=== PATIENT | female | born 1965 | race Caucasian/White ===

== ENCOUNTER 2024-03-19 14:54 | Inpatient (IN) ==
--- NOTE | 2024-03-19 15:11 | Emergency Department Note ---
Impression & Plan Trauma, Fall, Alcohol intoxication, Hypokalemia, C1 cervical fracture, Closed skull fracture, Compression fx, thoracic spine ED Provider Note NAME: FADY MADRIGAL AGE: 58 SEX: F : 1965 ARRIVES VIA: Ambulance INFORMANT: Patient, EMS ED PROVIDER(S): Lalo Gonzalez DO CHIEF COMPLAINT: Trauma HPI: The patient is a 58-year-old female who presented to the emergency department by ambulance after traumatic injury. The patient has a history of recent cervical spine trauma and head injury according to the prehospital personnel. The patient is obtunded and cannot give any history. The patient was boarded and collared prior to arrival. She was found at the bottom of her stairs with multiple injuries in different stages. She was wearing a cervical collar prior to arrival. It is unknown what her true past medical history and true traumatic injuries are at this time. ROS: See above HPI for pertinent positives & negatives. A total of 10 systems reviewed and were otherwise negative. PAST MEDICAL HISTORY: See Below PAST SURGICAL HISTORY: See Below FAMILY HISTORY: See Below SOCIAL HISTORY: See Below HOME MEDICATIONS: See Below ALLERGIES: See Below VITALS: See Below PHYSICAL EXAMINATION: GENERAL: The patient is awake to loud verbal commands but she is obtunded and does not answer questions well. She is slurring her words. EYES: The conjunctivae are injected. The pupils are dilated but reactive bilaterally. EARS, NOSE, MOUTH AND THROAT: The nose is without any evidence of any deformity. Mucous membranes are moist. Tongue is midline. NECK: Rigid cervical collar was in place prior to arrival. RESPIRATORY: Normal respiratory effort is noted there is no evidence of wheezing rhonchi or rales CARDIOVASCULAR: Regular rate and rhythm noted there no murmurs rubs or gallops normal S1 normal S2. GASTROINTESTINAL: The abdomen is soft. Abdomen is nontender. MUSCULOSKELETAL/EXTREMITIES: There is no evidence of gross deformity full range of motion is noted in the hips and shoulders. SKIN: There is no pedal edema. There were multiple bruises in different stages over the patient's entire body. There is some new bruising noted over the left flank. There is also bruising over the left upper back. NEUROLOGIC: Patient is awake to commands. I am unable to assess orientation at this time. Strength was symmetric. Speech was slurred. MEDICAL DECISION MAKING: The patient is a 58-year-old female who presented to the emergency department as a trauma alert. The patient was obtunded and found at the bottom of her stairs. She clearly fell. She was transferred to [facility] for trauma at the beginning of February for similar episode. At that time she was found to have bilateral subdural hematomas as well as cervical spine thoracic spine and skull fractures. The patient was obtunded on my initial evaluation. For this reason a medina scan was ordered. I discussed the patient's laboratory and radiographic studies with her and her family member. Given her findings I do not feel that she would be a good candidate for outpatient treatment. For this reason I will discuss her condition with the on-call [facility] hospitalist. Triage Nursing notes reviewed. Prior medical records reviewed Vital Signs: reviewed and remarkable for no significant abnormalities Differential diagnosis: Fracture, dislocation, contusion, intra-abdominal, pneumothorax, intrathoracic, intracranial, neurologic, compartment syndrome, rhabdomyolysis, as well as other pathologies. ER treatment provided: See below Diagnostics interpreted by me: ECG: EKG was obtained in the emergency department. My interpretation is normal sinus rhythm at 79 bpm. There is no ectopy. There is no acute ST segment abnormalities noted. This was compared to a tracing from February 18, 2024. No changes were noted. Cardiac Monitoring: An order was placed for continuous cardiac monitoring. The monitor shows a rate of 89 bpm with sinus rhythm. Laboratory studies: As stated above and show below. Imaging studies: See below. Radiographic imaging was reviewed by myself Consultation(s): I discussed this case with Dr. Beard [facility] ED COURSE: Procedures: none Critical Care: I have personally spent greater than 45 minutes of critical care time in the direct management of this patient. This includes bedside care, interpretation of diagnostic studies, and testing, discussion with consultants, patient, and family members, and other required patient management activities. This 45 minutes is in excess of all separately billable procedures. Past Med/Surg History Problem List Compression fx, thoracic spine (Acute) Closed skull fracture (Acute) C1 cervical fracture (Acute) Hypokalemia (Acute) Alcohol intoxication (Acute) Fall (Acute) Trauma (Acute) Social History Smoking Status: Current every day smoker Tobacco Type: Cigarettes Beliefs That Will Affect Care: Spiritual Feels Safe at Home: Yes Allergies Allergies Allergy/AdvReac Type Severity Reaction Status Date / Time Penicillins Allergy Rash Unverified 02/18/24 15:11 pollen extracts Allergy Sneezing Unverified 02/18/24 15:12 Home Meds Home Medications Medication Instructions Recorded Confirmed acetaminophen 500 mg tablet 1,000 mg PO DAILY 02/18/24 02/18/24 Results & Data (ED) Vital Signs Vital Signs - 24 hr 03/19/24 14:56 03/19/24 14:56 03/19/24 14:56 Temperature 36.8 C Temperature Source Oral Pulse Rate 102 H Pulse Rate [Apical] Pulse Rate from SpO2 Sensor Respiratory Rate 20 Blood Pressure 106/82 Blood Pressure [Left Arm] Blood Pressure Mean 90 Blood Pressure Mean [Left Arm] Pulse Oximetry 92 Oxygen Delivery Method Room Air Room Air Room Air Sepsis Recent Fever Within 48 Hours No Sepsis New/Unexplained Change in Mental Status No Sepsis Action Taken by Nursing No Action Required 03/19/24 14:56 03/19/24 15:45 03/19/24 15:56 Temperature Temperature Source Pulse Rate Pulse Rate [Apical] 87 Pulse Rate from SpO2 Sensor Respiratory Rate 16 Blood Pressure Blood Pressure [Left Arm] 120/81 Blood Pressure Mean Blood Pressure Mean [Left Arm] 94 Pulse Oximetry 95 Oxygen Delivery Method Room Air Room Air Room Air Sepsis Recent Fever Within 48 Hours Sepsis New/Unexplained Change in Mental Status Sepsis Action Taken by Nursing 03/19/24 16:00 03/19/24 16:03 03/19/24 16:15 Temperature Temperature Source Pulse Rate 87 89 Pulse Rate [Apical] Pulse Rate from SpO2 Sensor 88 Respiratory Rate 14 Blood Pressure 110/79 Blood Pressure [Left Arm] Blood Pressure Mean 94 Blood Pressure Mean [Left Arm] Pulse Oximetry 96 Oxygen Delivery Method Room Air Sepsis Recent Fever Within 48 Hours Sepsis New/Unexplained Change in Mental Status Sepsis Action Taken by [facility] Medications Current Medication List: was personally reviewed by me Laboratory Data Attestation: I reviewed the patient's lab results. 03/19/24 15:06 03/19/24 15:06 Lab Results 03/19/24 03/19/24 03/19/24 Range/Units 15:06 15:14 15:44 WBC 4.94 (4.8-10.8) K/ul RBC 3.71 L (4.20-5.40) M/uL Hgb 13.2 (12.0-16.0) g/dl POC Hgb 14.6 (12.0-16.0) g/dl Hct 39.6 (37.0-47.0) % POC Hct 43 (37-47) % MCV 106.7 H (80.0-100.0) fL MCH 35.6 H (25.0-34.0) pg MCHC 33.3 (32.0-36.0) g/dL RDW Std Deviation 49.7 H (36.4-46.3) fL RDW Coeff of Gio 12.5 (11.5-14.5) % Plt Count 186 (130-400) K/uL MPV 9.2 L (9.4-12.4) fL Immature Gran % (Auto) 0.4 % Neut % (Auto) 37.4 % Lymph % (Auto) 47.2 % Josephine % (Auto) 13.6 % Eos % (Auto) 0.6 % Baso % (Auto) 0.8 % Neut # (Auto) 1.85 (1.40-6.50) K/uL Lymph # (Auto) 2.33 (1.20-3.40) K/uL Josephine # (Auto) 0.67 H (0.11-0.59) K/uL Eos # (Auto) 0.03 (0.00-0.50) K/uL Baso # (Auto) 0.04 (0.00-0.20) K/uL Immature Gran # (Auto) 0.02 (0.01-0.20) K/uL PT 11.4 (9.0-12.0) Seconds INR 1.1 (0.9-1.1) APTT 24 (21-31) Seconds PTT Ratio 0.9 POC Sodium 143 (135-144) mmol/L Sodium 144 (136-145) mmol/L POC Potassium 2.9 L (3.3-5.0) mmol/L Potassium 2.9 L (3.5-5.1) mmol/L POC Chloride 103 (101-112) mmol/L Chloride 101 (98-107) mmol/L Carbon Dioxide 26 (21-32) mmol/L POC Total CO2 25 (24-31) mmol/L Anion Gap 17 H (3-11) POC Anion Gap 19.0 (16-25) mmol/L POC BUN < 3 L (7-18) mg/dl BUN 2 L (6-23) mg/dl Creatinine 0.39 L (0.6-1.2) mg/dl POC Creatinine 1.0 (0.6-1.3) mg/dl Est Cr Clr Drug Dosing 149.5 ml/min Est GFR ( Amer) 136.1 ml/min Est GFR (Non-Af Amer) 117.4 ml/min BUN/Creatinine Ratio 5.1 L (10-20) Glucose 111 H (70-99(Fasting)) mg/dl POC Glucose (other) 112 H (70-99) mg/dl Calcium 9.1 (8.6-10.3) mg/dl POC Ioniz Calcium Zane 1.00 L (1.12-1.32) mmol/l Total Bilirubin 0.4 (0.2-1.0) mg/dl AST 160 H (13-39) U/L ALT 66 H (7-52) U/L Alkaline Phosphatase 199 H (34-104) U/L Total Creatine Kinase 46 (26-192) U/L Troponin I High Sens 6.4 (0-14) pg/ml Total Protein 6.7 (6.0-8.3) gm/dl Albumin 3.6 (3.4-5.0) gm/dl Globulin 3.1 (2.5-4.0) gm/dl Albumin/Globulin Ratio 1.2 (0.9-2) Urine Color Yellow Urine Appearance Clear (Clear) Urine pH 5.5 (4.5-7.5) Ur Specific [place] 1.021 (1.000-1.030) Urine Protein Negative (Negative) Urine Glucose (UA) Negative (Negative) Urine Ketones Negative (Negative) Urine Blood Negative (Negative) Urine Nitrite Negative (Negative) Urine Bilirubin Negative (Negative) Urine Urobilinogen Negative (Negative) Ur Leukocyte Esterase Negative (Negative) Urine Opiates Screen Neg (Neg) Ur Methadone, Qual Neg (Neg) Urine Fentanyl Screen Neg (Neg) Urine Barbiturates Neg (Neg) Ur Phencyclidine (PCP) Neg (Neg) U Amphetamin/Meth Scrn Neg (Neg) MDMA (Ecstasy) Screen Neg (Neg) U Benzodiazepines Scrn Neg (Neg) Ur Cocaine Metabolite Neg (Neg) U Marijuana (THC) Screen Pos H (Neg) Ethyl Alcohol mg/dL 494.9 H (<10.0) mg/dl Administered Medications Potassium Chloride (K Juan / Wtr) 10 meq in 100 mls @ 100 mls/hr IV Q1H LESVIA Stop: 03/19/24 18:59 Last Admin: 03/19/24 16:26 Dose: 100 mls/hr Documented By: GABE Discontinued Medications Sodium Chloride (Nss) 1,000 mls @ 999 mls/hr IV .Q1H1M LESVIA Stop: 03/19/24 16:15 Last Admin: 03/19/24 15:46 Dose: 999 mls/hr Documented By: ELIZABETH Cefazolin Sodium (Ancef 1000mg) 1,000 mg in 7.5 mls @ 2.5 mls/min IV NOW STA Stop: 03/19/24 15:09 Last Admin: 03/19/24 16:06 Dose: 2.5 mls/min Documented By: GABE Ioversol (Optiray 320 100ml) 93 ml IV ONCE ONE Stop: 03/19/24 15:13 Last Admin: 03/19/24 15:12 Dose: 93 ml Documented By: JACINTA Ondansetron HCl (Ondansetron Inj 2 Mg/Ml 2 Ml Vial) 4 mg IV NOW STA Stop: 03/19/24 15:08 Last Admin: 03/19/24 15:46 Dose: 4 mg Documented By: ELIZABETH Imaging Data Attestation: I personally reviewed and interpreted this imaging study as follows: My Impression: CT of the brain was obtained in the emergency department. My interpretation is no acute intracranial hemorrhage or mass effect, final report below. CT of the abdomen and pelvis was obtained in the emergency department. My interpretation is no free air or signs of bowel obstruction, final report below. CT of the chest was obtained in the emergency department. My interpretation is no free air or definite rib fracture, final report below. 1 view chest x-ray was obtained in the emergency department. My interpretation is no free air or infiltrate, final report pending. Radiologist's Impression: Abdomen/Pelvis CT 03/19/24 15:08 CT OF THE ABDOMEN AND PELVIS WITH CONTRAST CLINICAL HISTORY: Trauma COMPARISON STUDY: CT of the abdomen and pelvis February 18, 2024. TECHNIQUE: Following IV administration of 93 mL of Optiray, axial images of the abdomen and pelvis were obtained from the lung bases to the proximal femurs. Images were reviewed in the axial, sagittal, and coronal planes. IV contrast was administered without complication. Automated exposure control was utilized for the study. A dose lowering technique was utilized adhering to the principles of ALARA. FINDINGS: Multiple healing left-sided rib fractures are noted. There is a subacute/healing T9 compression fracture. No acute lumbar spine, pelvic or hip fractures are identified. There is severe hepatic steatosis. There is no evidence for traumatic injury to the liver, spleen, adrenal glands, kidneys or pancreas. 3 mm right renal calculus is present. There are are no ureteral calculi. There is no hydronephrosis. A 4.5 cm water attenuation right pelvic lesion likely arises from the right ovary. There is no hemoperitoneum. There is no retroperitoneal hematoma. Scattered sclerotic lesions favor bone islands. IMPRESSION: 1. No acute traumatic findings within the abdomen or pelvis. 2. No acute fractures. 3. Severe hepatic steatosis. 4. 4.5 cm cystic lesion within the right hemipelvis. This likely reflects an ovarian cyst. Nonemergent pelvic ultrasound is recommended for further evaluation. ACT 112: Negative or not required by law. Electronically signed by: Agustin Carrero M.D. 03/19/2024 3:[address] 03/19/24 15:08 CT OF THE CERVICAL SPINE WITHOUT CONTRAST CLINICAL HISTORY: Trauma COMPARISON STUDY: Cervical spine CT February 18, 2024. TECHNIQUE: Helical axial images of the cervical spine were obtained without IV contrast. Sagittal and coronal reconstructions were viewed. Automated exposure control was utilized for the study. A dose lowering technique was utilized adhering to the principles of ALARA. FINDINGS: No acute cervical spine fractures are present. There has been no change in alignment of the subacute fractures of the bilateral anterior arch of C1 since CT of March 03, 2024. Callus formation is noted. A nondisplaced left occipital condyle fracture similar in appearance. No additional fractures within the cervical spine are present. Moderate multilevel degenerative changes within the spine are noted. IMPRESSION: 1. No acute cervical spine fracture or subluxation. 2. No change in alignment of the subacute fractures of the anterior arch of C1 since CT of February 18, 2024. Interval callus formation. No significant bony bridging. Stability of these fractures is difficult to determine by CT. 3. No change in alignment of a nondisplaced left occipital condyle fracture. ACT 112: Negative or not required by law. Electronically signed by: Agustin Carrero M.D. 03/19/2024 3:[address] 03/19/24 15:08 CT OF THE CHEST WITH IV CONTRAST CLINICAL HISTORY: Trauma COMPARISON STUDY: Chest CT February 18, 2024. TECHNIQUE: Following IV administration of 93 mL of Optiray, helical axial images of the chest were obtained. Sagittal and coronal reconstructions were viewed as well as maximal intensity projections on an independent 3-D workstation. Automated exposure control was utilized for the study. A dose lowering technique was utilized adhering to the principles of ALARA. FINDINGS: There is no evidence for traumatic injury to the thoracic aorta. There is no mediastinal hematoma. Size of the heart is normal. There is no pericardial effusion. Elevation of the right hemidiaphragm is unchanged. There is severe hepatic steatosis, unchanged. No pneumothorax or pleural effusion is present. Linear densities in groundglass opacities favor atelectasis. There is no pulmonary contusion. Subacute/healing T4 and T9 compression fractures are again noted. There are no acute thoracic spine fractures. Multiple healing left- sided rib fractures are again noted. No acute rib fractures are identified. A healing distal left clavicular fracture is noted. There is also a probable healing left acromial fracture, partially imaged on this exam. IMPRESSION: 1. No acute traumatic findings within the chest. 2. Subacute/healing T4 and T9 compression fractures. No acute thoracic spine fractures. Healing fractures of several left-sided ribs, the distal left clavicle and left acromion. ACT 112: Negative or not required by law. Electronically signed by: Agutsin Carrero M.D. 03/19/2024 3:50 PM Chest X-Ray 03/19/24 15:08 SUPINE PORTABLE AP CHEST RADIOGRAPH CLINICAL HISTORY: trauma COMPARISON STUDY: Chest CTs February 18, 2024 and March 19, 2024. FINDINGS: Elevation of the right hemidiaphragm is unchanged. There is no pneumothorax or pleural effusion. There is no consolidation to suggest pneumonia. There are several healing left-sided rib fractures. IMPRESSION: 1. No acute cardiopulmonary findings. 2. Several healing left-sided rib fractures. 3. Stable elevation of the right hemidiaphragm. ACT 112: Negative or not required by law. Electronically signed by: Agustin Carrero M.D. 03/19/2024 4:[address] 03/19/24 15:08 CT OF THE HEAD WITHOUT CONTRAST CLINICAL HISTORY: Trauma COMPARISON STUDY: Head CT February 18, 2024. TECHNIQUE: Helical axial images of the head were obtained without IV contrast. Automated exposure control was utilized for the study. A dose lowering technique was utilized adhering to the principles of ALARA. FINDINGS: No acute intracranial hemorrhage is present. Ventricular system is unremarkable. There has been interval development of small hypodense bilateral subdural collections overlying the bilateral frontal and temporal lobes since CT of February 18, 2024. These measure 4 mm in thickness. These have no significant mass effect. Basal cisterns are patent. There are no calvarial fractures. Subcutaneous of bone fractures were shown on CT of February 18, 2024. C1 vertebral fracture is also shown on prior cervical spine CT. IMPRESSION: 1. No acute intracranial hemorrhage. 2. Interval development of small hypodense bilateral subdural collections since CT of February 18, 2024. These favor bilateral subdural hygromas. Given time course, chronic subdural hematomas are considered less likely but could appear similar. No significant mass effect at this time. Follow-up head CT in 24 hours is recommended. 3. No calvarial fractures. 4. C1 fractures and bilateral nasal bone fractures which were shown on CT of February 18, 2024. ACT 112: Negative or not required by law. Electronically signed by: Agustin Carrero M.D. 03/19/2024 3:38 PM Discharge Plan Visit Data Chief Complaint: Trauma Stated Complaint: ETOH, FALL DOWN STEPS ED Provider: Lalo Gonzalez Discharge Problem: Trauma, Fall, Alcohol intoxication, Hypokalemia, C1 cervical fracture, Closed skull fracture, Compression fx, thoracic spine Patient Disposition: Being Evaluated by Hospitalist Forms Stand Alone Forms: My [employer] Prescriptions Prescriptions: No Action acetaminophen 500 mg Tablet 1,000 mg PO DAILY Referrals Referrals: [facility],Medicine [Primary Care Provider] - Discharge Problem: Fall Qualifiers: Encounter type: initial encounter Qualified Code(s): W19.XXXA - Unspecified fall, initial encounter Alcohol intoxication Qualifiers: Complication of substance-induced condition: with unspecified complication Q ualified Code(s): F10.929 - Alcohol use, unspecified with intoxication, unspecified C1 cervical fracture Qualifiers: Encounter type: subsequent encounter Fracture type: closed Fracture morphology: unspecified fracture morphology Fracture alignment: nondisplaced Fracture healing: with routine healing Qualified Code(s): S12.001D - Unspecified nondisplaced fracture of first cervical vertebra, subsequent encounter for fracture with routine healing Closed skull fracture Qualifiers: Encounter type: subsequent encounter Skull bone/location: unspecified skull bone Fracture healing: with routine healing Qualified Code(s): S02.91XD - Unspecified fracture of skull, subsequent encounter for fracture with routine healing Compression fx, thoracic spine Qualifiers: Encounter type: subsequent encounter Thoracic vertebra fracture level: T1 F racture healing: with routine healing Qualified Code(s): S22.010D - Wedge compression fracture of first thoracic vertebra, subsequent encounter for fracture with routine healing
[2024-03-19] MEDS: OPTIRAY 320 100ml IV ONE (15:12)
[2024-03-19 15:27] LABS: iSTAT Blood Urea Nitrogen < 3 mg/dl (7-18); iSTAT Carbon Dioxide 25 mmol/L (24-31); iSTAT Chloride 103 mmol/L (101-112); iSTAT Glucose 112 mg/dl (70-99); iSTAT Hematocrit 43 % (37-47); iSTAT Hemoglobin 14.6 g/dl (12.0-16.0); iSTAT Potassium 2.9 mmol/L (3.3-5.0); iSTAT Sodium 143 mmol/L (135-144)
[2024-03-19 15:34] LABS: Albumin Level 3.6 gm/dl (3.4-5.0); Basophils # (auto) 0.04 K/uL (0.00-0.20); Basophils % (auto) 0.8 %; Bilirubin,Total 0.4 mg/dl (0.2-1.0); Calcium 9.1 mg/dl (8.6-10.3); Eosinophils # (auto) 0.03 K/uL (0.00-0.50); Eosinophils % (auto) 0.6 %; Hematocrit (blood only) 39.6 % (37.0-47.0); Hemoglobin 13.2 g/dl (12.0-16.0); Immature Granulocytes # (auto) 0.02 K/uL (0.01-0.20); Immature Granulocytes % (auto) 0.4 %; Lymphocytes # (auto) 2.33 K/uL (1.20-3.40); Lymphocytes % (auto) 47.2 %; Mean Corpuscular Hemoglobin 35.6 pg (25.0-34.0); Mean Corpuscular Hgb Conc 33.3 g/dL (32.0-36.0); Mean Corpuscular Volume 106.7 fL (80.0-100.0); Mean Platelet Volume 9.2 fL (9.4-12.4); Monocytes # (auto) 0.67 K/uL (0.11-0.59); Monocytes % (auto) 13.6 %; Neutrophils # (auto) 1.85 K/uL (1.40-6.50); Neutrophils % (auto) 37.4 %; Platelet Count 186 K/uL (130-400); Potassium 2.9 mmol/L (3.5-5.1); RDW Coefficient of Variation 12.5 % (11.5-14.5); RDW Standard Deviation 49.7 fL (36.4-46.3); Red Blood Count 3.71 M/uL (4.20-5.40); White Blood Count 4.94 K/ul (4.8-10.8)
[2024-03-19 15:40] LABS: Albumin Globulin Ratio 1.2 (0.9-2); BUN Creatinine Ratio 5.1 (10-20); Creatinine Clr Calc Pharmacy 149.5 ml/min; Est GFR (African American) 136.1 ml/min; Est GFR (Non-African American) 117.4 ml/min; Globulin 3.1 gm/dl (2.5-4.0); Total Protein 6.7 gm/dl (6.0-8.3)
--- NOTE | 2024-03-19 15:40 | CT Scan Report ---
CT OF THE HEAD WITHOUT CONTRAST CLINICAL HISTORY: Trauma COMPARISON STUDY: Head CT February 18, 2024. TECHNIQUE: Helical axial images of the head were obtained without IV contrast. Automated exposure con trol was utilized for the study. A dose lowering technique was utilized adhering to the principles o f ALARA. FINDINGS: No acute intracranial hemorrhage is present. Ventricular system is unremarkable. There has been interval development of small hypodense bilateral subdural collections overlying the bilateral f rontal and temporal lobes since CT of February 18, 2024. These measure 4 mm in thickness. These have no significant mass effect. Basal cisterns are patent. There are no calvarial fractures. Subcutaneous of bone fractures were shown on CT of February 18, 2024. C1 vertebral fracture is also shown on prior cerv ical spine CT. IMPRESSION: 1. No acute intracranial hemorrhage. 2. Interval development of small hypodense bilateral subdural collections since CT of February 18, 2024. These favor bilateral subdural hygromas. Given time course, chronic subdural hematomas are considere d less likely but could appear similar. No significant mass effect at this time. Follow-up head CT in 24 hours is recommended. 3. No calvarial fractures. 4. C1 fractures and bilateral nasal bone fractures which were shown on CT of February 18, 2024. ACT 112: Negative or not required by law. Electronically signed by: Agustin Carrero M.D. 03/19/2024 3:38 PM
[2024-03-19 15:45] LABS: Troponin I High Sensitivity 6.4 pg/ml (0-14)
[2024-03-19] MEDS: SODIUM CHLORIDE 0.9% 1,000 ML IV SCH ×2 (15:46→19:28)
[2024-03-19] MEDS: ONDANSETRON INJ 2 MG/ML 2 ML VIAL IV STA (15:46)
--- NOTE | 2024-03-19 15:47 | CT Scan Report ---
CT OF THE CERVICAL SPINE WITHOUT CONTRAST CLINICAL HISTORY: Trauma COMPARISON STUDY: Cervical spine CT February 18, 2024. TECHNIQUE: Helical axial images of the cervical spine were obtained without IV contrast. Sagittal a nd coronal reconstructions were viewed. Automated exposure control was utilized for the study. A do se lowering technique was utilized adhering to the principles of ALARA. FINDINGS: No acute cervical spine fractures are present. There has been no change in alignment of the subacute fractures of the bilateral anterior arch of C1 since CT of March 03, 2024. Callus formatio n is noted. A nondisplaced left occipital condyle fracture similar in appearance. No additional fract ures within the cervical spine are present. Moderate multilevel degenerative changes within the spine are noted. IMPRESSION: 1. No acute cervical spine fracture or subluxation. 2. No change in alignment of the subacute fractures of the anterior arch of C1 since CT of February 18, 2024. Interval callus formation. No significant bony bridging. Stability of these fractures is diffic ult to determine by CT. 3. No change in alignment of a nondisplaced left occipital condyle fracture. ACT 112: Negative or not required by law. Electronically signed by: Agustin Carrero M.D. 03/19/2024 3:45 PM
[2024-03-19 15:53] LABS: Appearance Urine Clear (Clear); Bilirubin Urine Negative (Negative); Blood Urine Negative (Negative); Color Urine Yellow; Glucose Urine UA Negative (Negative); Ketones Urine Negative (Negative); Leukocyte Esterase Urine Negative (Negative); Nitrite Urine Negative (Negative); Protein Urine Negative (Negative); Specific Gravity Urine 1.021 (1.000-1.030); Urobilinogen Urine Negative (Negative); pH Urine 5.5 (4.5-7.5)
--- NOTE | 2024-03-19 15:53 | CT Scan Report ---
CT OF THE CHEST WITH IV CONTRAST CLINICAL HISTORY: Trauma COMPARISON STUDY: Chest CT February 18, 2024. TECHNIQUE: Following IV administration of 93 mL of Optiray, helical axial images of the chest were o btained. Sagittal and coronal reconstructions were viewed as well as maximal intensity projections o n an independent 3-D workstation. Automated exposure control was utilized for the study. A dose low ering technique was utilized adhering to the principles of ALARA. FINDINGS: There is no evidence for traumatic injury to the thoracic aorta. There is no mediastinal h ematoma. Size of the heart is normal. There is no pericardial effusion. Elevation of the right hemidi aphragm is unchanged. There is severe hepatic steatosis, unchanged. No pneumothorax or pleural effusi on is present. Linear densities in groundglass opacities favor atelectasis. There is no pulmonary con tusion. Subacute/healing T4 and T9 compression fractures are again noted. There are no acute thoracic spine fractures. Multiple healing left-sided rib fractures are again noted. No acute rib fractures a re identified. A healing distal left clavicular fracture is noted. There is also a probable healing l eft acromial fracture, partially imaged on this exam. IMPRESSION: 1. No acute traumatic findings within the chest. 2. Subacute/healing T4 and T9 compression fractures. No acute thoracic spine fractures. Healing fract ures of several left-sided ribs, the distal left clavicle and left acromion. ACT 112: Negative or not required by law. Electronically signed by: Agustin Carrero M.D. 03/19/2024 3:50 PM
--- NOTE | 2024-03-19 15:57 | CT Scan Report ---
CT OF THE ABDOMEN AND PELVIS WITH CONTRAST CLINICAL HISTORY: Trauma COMPARISON STUDY: CT of the abdomen and pelvis February 18, 2024. TECHNIQUE: Following IV administration of 93 mL of Optiray, axial images of the abdomen and pelvis we re obtained from the lung bases to the proximal femurs. Images were reviewed in the axial, sagittal, and coronal planes. IV contrast was administered without complication. Automated exposure control wa s utilized for the study. A dose lowering technique was utilized adhering to the principles of ALARA . FINDINGS: Multiple healing left-sided rib fractures are noted. There is a subacute/healing T9 malathi ned fracture. No acute lumbar spine, pelvic or hip fractures are identified. There is severe hepatic steatosis. There is no evidence for traumatic injury to the liver, spleen, adrenal glands, kidneys o r pancreas. 3 mm right renal calculus is present. There are are no ureteral calculi. There is no hydr onephrosis. A 4.5 cm water attenuation right pelvic lesion likely arises from the right ovary. There is no hemoperitoneum. There is no retroperitoneal hematoma. Scattered sclerotic lesions favor bone is lands. IMPRESSION: 1. No acute traumatic findings within the abdomen or pelvis. 2. No acute fractures. 3. Severe hepatic steatosis. 4. 4.5 cm cystic lesion within the right hemipelvis. This likely reflects an ovarian cyst. Nonemergen t pelvic ultrasound is recommended for further evaluation. ACT 112: Negative or not required by law. Electronically signed by: Agustin Carrero M.D. 03/19/2024 3:55 PM
[2024-03-19] MEDS: ceFAZolin 1000MG 1,000 MG/7.5 ML SYR IV STA (16:06)
[2024-03-19 16:12] LABS: INR 1.1 (0.9-1.1); Partial Thromboplastin Ratio 0.9; Partial Thromboplastin Time 24 Seconds (21-31); Prothrombin Time 11.4 Seconds (9.0-12.0)
[2024-03-19 16:15] LABS: Amphetamines+Metham, Urine Neg (Neg); Barbiturates, Urine Neg (Neg); Benzodiazepine, Urine Neg (Neg); Cocaine, Urine Neg (Neg); Fentanyl, Urine Neg (Neg); MDMA (Ecstacy), Urine Neg (Neg); Marijuana, Urine Pos (Neg); Methadone, Urine Neg (Neg); Opiate, Urine Neg (Neg); Phencyclidine, Urine Neg (Neg)
--- NOTE | 2024-03-19 16:15 | History & Physical Report ---
Date of Service March 19, 2024 Assessment & Plan (1) Fall down stairs: (2) Alcohol intoxication: (3) Transaminitis: (4) Hypokalemia: Plan Danay Thomas is a 58y/o F with PMHx of essential tremor, alcohol abuse, tobacco use disorder, severe hepatic steatosis and other problems listed below who presented to the ED via EMS for evaluation after being found barely responsive at home by a neighbor. Patient previously presented to the [facility] ED on 02/18/24 for evaluation after etta taining a fall down steps. Patient was noted to have the following trauma- related injuries at that time: distal L clavicular fx, T4/T9 compression fx, S3 nondisplaced fx, C1 fx, occipital condyle fx, multiple L-sided rib fx's, nasal fx, right lamina papyracea fx and right inferior orbital wall fx, R mandibular dislocation. She was subsequently transferred to [facility] via [facility]. She was admitted at [facility] from 02/17 to 02/21. She did not undergo any surgical interventions. Mechanical Fall Alcohol Intoxication: Hypokalemia and mild transaminitis noted, otherwise labs appear unremarkable. UA negative. Urine tox positive for marijuana. Ethyl alcohol level 494.9 on presentation. CXR shows several healing L-sided rib fx's. Chest CT reveals subacute/healing T4 and T9 compression fx's from her previous fall. CTAP w/ no acute traumatic findings or acute fx's. Head CT w/ no acute intracranial hemorrhage but does show b/l subdural hygromas. Cervical spine CT w/ no acute cervical spine fx or subluxation. Old fractures from fall on 02/17 seen on imaging today. No acute fx's noted. Repeat head CT tomorrow AM. AM labs to include repeat CPK. Pain regimen. Bowel regimen. Alcohol w/d protocol - gabapentin taper, PRN Ativan. Continue folic acid, vit B12 supplementation. PT/OT evals. IVF w/ NSS x 2 bags. Mild Transaminitis Severe Hepatic Steatosis: AST 160, ALT 66 and Alk Phos 199 on admission. Avoid hepatotoxic meds when able. Repeat CMP in AM, monitor LFTs. Hypokalemia: K+ 2.9 on presentation. 30mEq IV KCl repleted in ED. Set to receive another 10mEq IV KCl. Continue w/ 40mEq oral KCl tonight for daily total of 80mEq today. Start K+ supplement in AM. Continue to monitor K+ and replete PRN. DVT Prophylaxis: SCDs/TEDs for now given recent fall. Code Status: DNR/DNI - As per discussion with patient at bedside. PCP: [facility] Disposition: Admit to PCU/Telemetry Patient seen in collaboration with Dr. Beard. Please see addendum. I spent a total of 65 minutes coordinating, documenting, and providing care for this patient excluding time spent in the performance of separately billed services. This included personally reviewing all current laboratories and imaging studies, medical reconciliation, outpatient chart review and discussion with specialists. This chart was completed in part utilizing Speech Voice Recognition Software. Grammatical errors, random word insertions, pronoun errors, and incomplete sentences are an occasional consequence of this system due to software limitations, ambient noise, and hardware issues. Any formal questions or concerns about the content, text, or information contained within the body of this dictation should be directly addressed to the provider for clarification. History of Present Illness Chief Complaint: Trauma Primary Care Provider: [facility] Danay Thomas is a 58y/o F with PMHx of essential tremor, alcohol abuse, tobacco use disorder, severe hepatic steatosis and other problems listed below who presented to the ED via EMS for evaluation after being found barely responsive at home by a neighbor. History obtained from patient, ex- at bedside and associated chart review. Patient previously presented to the [facility] ED on 02/18/24 for evaluation after sustaining a fall down steps. Patient was noted to have the following trauma- related injuries at that time: distal L clavicular fx, T4/T9 compression fx, S3 nondisplaced fx, C1 fx, occipital condyle fx, multiple L-sided rib fx's, nasal fx, right lamina papyracea fx and right inferior orbital wall fx, R mandibular dislocation. She was subsequently transferred to [facility] via [facility]. She was admitted at [facility] from 02/17 to 02/21. She did not undergo any surgical interventions. Today, patient was found on the ground by her neighbor around 4AM. She had sustained at fall down a flight of stairs in her 2-story apartment [approximately 14 steps]. Her ex-, Oli, was contacted by the neighbor that found her. He reports that the neighbor who found her was able to get her back upstairs to her bedroom. He went over to her apartment around 1PM this afternoon to check on her. Reports that he could smell alcohol on her breath. He thinks she consumed approximately 1 bottle of vodka (~750mL) in the past 24hrs. Patient does not remember if she lost consciousness after the fall. Patient has a C-collar in place during the fall, which has been on since 02/17. No recent fevers or chills. Patient is endorsing some back pain at this time. Denies any N/V, abdominal pain or urinary issues. No BM in 2 days. Patient smokes "a few" cigarettes/day. Also smokes marijuana. Allergies Allergy/AdvReac Type Severity Reaction Status Date / Time Penicillins Allergy Intermediate Rash Verified 03/19/24 16:56 pollen extracts Allergy Mild Sneezing Verified 03/19/24 16:56 Home Medications Medication Instructions Recorded Confirmed Type acetaminophen 500 mg tablet 1,000 mg PO Q12H PRN Pain 02/18/24 03/19/24 History folic acid 1 mg tablet 1 mg PO DAILY 03/19/24 03/19/24 History ibuprofen 200 mg tablet 200 mg PO Q6H PRN Pain 03/19/24 03/19/24 History thiamine HCl (vitamin B1) 100 mg PO DAILY 03/19/24 03/19/24 History Past Med/Surg History Problem List (Updated 03/19/24 @ 17:51 by Lucila Hughes PA-C) Transaminitis Fall down stairs Compression fx, thoracic spine (Acute) Closed skull fracture (Acute) C1 cervical fracture (Acute) Hypokalemia (Acute) Alcohol intoxication (Acute) Fall (Acute) Trauma (Acute) Medical History Tobacco use disorder Alcohol abuse Social History Smoking Status: Current every day smoker Tobacco Type: Cigarettes Beliefs That Will Affect Care: Spiritual Feels Safe at Home: Yes Review of Systems Review of Systems: At least ten systems reviewed and negative, except as noted in the HPI. Physical Exam Physical Exam: Please refer to Dr. Beard's addendum for physical examination findings. Results & Data Results & Data Vital Signs (Past 12 Hours) Vital Signs Temp Pulse Pulse Resp BP BP Pulse Ox 03/19/24 15:56 87 16 120/81 95 03/19/24 15:45 03/19/24 14:56 03/19/24 14:56 03/19/24 14:56 03/19/24 14:56 36.8 C 102 H 20 106/82 92 O2 Del Method 03/19/24 15:56 Room Air 03/19/24 15:45 Room Air 03/19/24 14:56 Room Air 03/19/24 14:56 Room Air 03/19/24 14:56 Room Air 03/19/24 14:56 Room Air Laboratory Results Short CBC 03/19/24 Range/Units 15:06 WBC 4.94 (4.8-10.8) K/ul Hgb 13.2 (12.0-16.0) g/dl Hct 39.6 (37.0-47.0) % Plt Count 186 (130-400) K/uL BMP 03/19/24 15:06 Sodium 144 Potassium 2.9 L Chloride 101 Carbon Dioxide 26 BUN 2 L Creatinine 0.39 L Glucose 111 H Calcium 9.1 Cardiac Enzymes 03/19/24 Range/Units 15:06 Total Creatine Kinase 46 (26-192) U/L Liver Function 03/19/24 Range/Units 15:06 Total Bilirubin 0.4 (0.2-1.0) mg/dl AST 160 H (13-39) U/L ALT 66 H (7-52) U/L Alkaline Phosphatase 199 H (34-104) U/L Albumin 3.6 (3.4-5.0) gm/dl Urine 03/19/24 Range/Units 15:44 Urine Color Yellow Urine Appearance Clear (Clear) Urine pH 5.5 (4.5-7.5) Ur Specific [place] 1.021 (1.000-1.030) Urine Protein Negative (Negative) Urine Glucose (UA) Negative (Negative) Diagnostic Findings Abdomen/Pelvis CT 03/19/24 15:08 CT OF THE ABDOMEN AND PELVIS WITH CONTRAST CLINICAL HISTORY: Trauma COMPARISON STUDY: CT of the abdomen and pelvis February 18, 2024. TECHNIQUE: Following IV administration of 93 mL of Optiray, axial images of the abdomen and pelvis were obtained from the lung bases to the proximal femurs. Images were reviewed in the axial, sagittal, and coronal planes. IV contrast was administered without complication. Automated exposure control was utilized for the study. A dose lowering technique was utilized adhering to the principles of ALARA. FINDINGS: Multiple healing left-sided rib fractures are noted. There is a subacute/healing T9 compression fracture. No acute lumbar spine, pelvic or hip fractures are identified. There is severe hepatic steatosis. There is no evidence for traumatic injury to the liver, spleen, adrenal glands, kidneys or pancreas. 3 mm right renal calculus is present. There are are no ureteral calculi. There is no hydronephrosis. A 4.5 cm water attenuation right pelvic lesion likely arises from the right ovary. There is no hemoperitoneum. There is no retroperitoneal hematoma. Scattered sclerotic lesions favor bone islands. IMPRESSION: 1. No acute traumatic findings within the abdomen or pelvis. 2. No acute fractures. 3. Severe hepatic steatosis. 4. 4.5 cm cystic lesion within the right hemipelvis. This likely reflects an ovarian cyst. Nonemergent pelvic ultrasound is recommended for further evaluation. ACT 112: Negative or not required by law. Electronically signed by: Agustin Carrero M.D. 03/19/2024 3:[address] 03/19/24 15:08 CT OF THE CERVICAL SPINE WITHOUT CONTRAST CLINICAL HISTORY: Trauma COMPARISON STUDY: Cervical spine CT February 18, 2024. TECHNIQUE: Helical axial images of the cervical spine were obtained without IV contrast. Sagittal and coronal reconstructions were viewed. Automated exposure control was utilized for the study. A dose lowering technique was utilized adhering to the principles of ALARA. FINDINGS: No acute cervical spine fractures are present. There has been no change in alignment of the subacute fractures of the bilateral anterior arch of C1 since CT of March 03, 2024. Callus formation is noted. A nondisplaced left occipital condyle fracture similar in appearance. No additional fractures within the cervical spine are present. Moderate multilevel degenerative changes within the spine are noted. IMPRESSION: 1. No acute cervical spine fracture or subluxation. 2. No change in alignment of the subacute fractures of the anterior arch of C1 since CT of February 18, 2024. Interval callus formation. No significant bony bridging. Stability of these fractures is difficult to determine by CT. 3. No change in alignment of a nondisplaced left occipital condyle fracture. ACT 112: Negative or not required by law. Electronically signed by: Agustin Carrero M.D. 03/19/2024 3:[address] 03/19/24 15:08 CT OF THE CHEST WITH IV CONTRAST CLINICAL HISTORY: Trauma COMPARISON STUDY: Chest CT February 18, 2024. TECHNIQUE: Following IV administration of 93 mL of Optiray, helical axial images of the chest were obtained. Sagittal and coronal reconstructions were viewed as well as maximal intensity projections on an independent 3-D workstation. Automated exposure control was utilized for the study. A dose lowering technique was utilized adhering to the principles of ALARA. FINDINGS: There is no evidence for traumatic injury to the thoracic aorta. There is no mediastinal hematoma. Size of the heart is normal. There is no pericardial effusion. Elevation of the right hemidiaphragm is unchanged. There is severe hepatic steatosis, unchanged. No pneumothorax or pleural effusion is present. Linear densities in groundglass opacities favor atelectasis. There is no pulmonary contusion. Subacute/healing T4 and T9 compression fractures are again noted. There are no acute thoracic spine fractures. Multiple healing left- sided rib fractures are again noted. No acute rib fractures are identified. A healing distal left clavicular fracture is noted. There is also a probable healing left acromial fracture, partially imaged on this exam. IMPRESSION: 1. No acute traumatic findings within the chest. 2. Subacute/healing T4 and T9 compression fractures. No acute thoracic spine fractures. Healing fractures of several left-sided ribs, the distal left clavicle and left acromion. ACT 112: Negative or not required by law. Electronically signed by: Agustin Carrero M.D. 03/19/2024 3:[address] 03/19/24 15:08 CT OF THE HEAD WITHOUT CONTRAST CLINICAL HISTORY: Trauma COMPARISON STUDY: Head CT February 18, 2024. TECHNIQUE: Helical axial images of the head were obtained without IV contrast. Automated exposure control was utilized for the study. A dose lowering technique was utilized adhering to the principles of ALARA. FINDINGS: No acute intracranial hemorrhage is present. Ventricular system is unremarkable. There has been interval development of small hypodense bilateral subdural collections overlying the bilateral frontal and temporal lobes since CT of February 18, 2024. These measure 4 mm in thickness. These have no significant mass effect. Basal cisterns are patent. There are no calvarial fractures. Subcutaneous of bone fractures were shown on CT of February 18, 2024. C1 vertebral fracture is also shown on prior cervical spine CT. IMPRESSION: 1. No acute intracranial hemorrhage. 2. Interval development of small hypodense bilateral subdural collections since CT of February 18, 2024. These favor bilateral subdural hygromas. Given time course, chronic subdural hematomas are considered less likely but could appear similar. No significant mass effect at this time. Follow-up head CT in 24 hours is recommended. 3. No calvarial fractures. 4. C1 fractures and bilateral nasal bone fractures which were shown on CT of February 18, 2024. ACT 112: Negative or not required by law. Electronically signed by: Agustin Carrero M.D. 03/19/2024 3:38 PM Medications Administered Sodium Chloride (Nss) 1,000 mls @ 999 mls/hr IV .Q1H1M LESVIA Stop: 03/19/24 16:15 Last Admin: 03/19/24 15:46 Dose: 999 mls/hr Documented By: ELIZABETH Discontinued Medications Cefazolin Sodium (Ancef 1000mg) 1,000 mg in 7.5 mls @ 2.5 mls/min IV NOW STA Stop: 03/19/24 15:09 Last Admin: 03/19/24 16:06 Dose: 2.5 mls/min Documented By: GABE Ioversol (Optiray 320 100ml) 93 ml IV ONCE ONE Stop: 03/19/24 15:13 Last Admin: 03/19/24 15:12 Dose: 93 ml Documented By: JACINTA Ondansetron HCl (Ondansetron Inj 2 Mg/Ml 2 Ml Vial) 4 mg IV NOW STA Stop: 03/19/24 15:08 Last Admin: 03/19/24 15:46 Dose: 4 mg Documented By: ELIZABETH Code Status & VTE Plan Code Status FULL CODE Supervising Physician Co-Signing Physician Notes 58-year-old lady with PMH of essential tremor, alcohol abuse, tobacco use disorder, severe hepatic steatosis, recent fall and trauma to C and T-spine [was flown to [facility] for this] presented to the ED after a fall down the stairs today. Patient's ex- Oli was at bedside. Per patient's , after patient fell down in her apartment patient's neighbor noted that around 4 am today and found her behind the front door on the floor, took her to the bedroom, reached out to him around 1 PM today who then went to her place and called ambulance. Patient reports that she was holding onto the railing and she slipped and fell down the stairs. She reports that she might have lost consciousness briefly. She denies any febrile illness/chest pain/palpitation/sore throat/cough recently. She drinks about a bottle of vodka daily, does not have good appetite, last bowel movement was 2 days ago per her, does not have any pain or burning while passing urine. Last alcohol drink was today morning per patient's ex- as patient was smelling "fresh alcohol" per Oli when he visited her about 1 pm. Patient reports he was in cervical collar while falling down the stairs. No numbness/no tingling per patient. Mechanical fall: CT head with concern of subdural hygroma, repeat CT head in [address] chest with subacute/healing T4 and T9 compression fractures. CT C- spine with subacute C1 fracture. No new fractures noted in CT scans. CXR with several healing left-sided rib fractures. Continue to wear c-collar, follow-up with orthospine as an outpatient. Continue with pain management and bowel regimen. Get CPK. Abnormal CTAP: 4.5 centimeters cystic lesion within the right hemipelvis, likely ovarian cyst. Will get a pelvic ultrasound, SURGICAL RN as an outpatient. Alcohol intoxication/risks of severe alcohol withdrawal: Patient drinks about 1 bottle of vodka a day, last drink today morning, alcohol cessation encouraged/patient not interested/patient reports she is trying to cut down on the intake though. AWSS protocol, folic acid, thiamine. Monitor replete electrolytes. Replete 40 mEq p.o. KCl and 40 mEq IV KCl. Poor appetite/malnutrition: In the setting of alcohol abuse, appears thin/frail/weak on exam, reports very poor appetite. dietitian consult. Increase protein intake in diet. c/w IVF nss at 65ml/hr x 2 bags. MV w/ minerals daily. On exam: GENERAL: Alert and oriented x3. NAD, on RA. C collar in place. Appears frail/weak. HEENT: No pallor, no icterus. Pupils equal, round and reactive to light. Oral mucosa moist. Upper lip x central x horizontal laceration x about 1 cm. apposed edges. NECK: No JVD, no neck masses. c collar in place HEART: S1 and S2 heard. Regular rate and rhythm. No murmur, no gallop. RESPIRATORY SYSTEM: Normal AP diameter. No accessory muscle use. No wheezing, no crackles. ABDOMEN: Soft, bowel sounds present, nontender, no distention. CENTRAL NERVOUS SYSTEM: No facial droop. Speech is clear. Obeys simple commands. Moves extremities. power 5/5 all limbs. EXTREMITIES: No edema, no erythema seen. SKIN: multiple bruise all over the body in diff stages of healing. Left flank bruise appears new. I have seen and examined the patient and have discussed the case with the provider above. I agree with the assessment and plan as stated. (1) Fall down stairs Encounter type: initial encounter Qualified Code(s): W10.8XXA - Fall (on) (from) other stairs and steps, initial encounter (2) Alcohol intoxication Complication of substance-induced condition: with unspecified complication Qualified Code(s): F10.929 - Alcohol use, unspecified with intoxication, unspecified
--- NOTE | 2024-03-19 16:19 | XRay Report ---
SUPINE PORTABLE AP CHEST RADIOGRAPH CLINICAL HISTORY: trauma COMPARISON STUDY: Chest CTs February 18, 2024 and March 19, 2024. FINDINGS: Elevation of the right hemidiaphragm is unchanged. There is no pneumothorax or pleural effu ned. There is no consolidation to suggest pneumonia. There are several healing left-sided rib fractu res. IMPRESSION: 1. No acute cardiopulmonary findings. 2. Several healing left-sided rib fractures. 3. Stable elevation of the right hemidiaphragm. ACT 112: Negative or not required by law. Electronically signed by: Agustin Carrero M.D. 03/19/2024 4:17 PM
[2024-03-19] MEDS: POTASSIUM CHLORIDE / WTR 10 MEQ/100 ML PLCT IV SCH (16:26)
[2024-03-19] MEDS: THIAMINE HCL 200 MG in SODIUM CHLORIDE 0.9% 50 ML IV STA (16:48)
[2024-03-19] MEDS ORDERED: ONDANSETRON INJ 2 MG/ML 2 ML VIAL IV PRN (18:53)
[2024-03-19] MEDS ORDERED: HYDROmorphone INJ 1 MG/ML SYRINGE IV PRN (18:53)
[2024-03-19] MEDS ORDERED: LORazepam 1 MG TAB PO PRN ×2 (18:53)
[2024-03-19] MEDS ORDERED: Ativan PO Alcohol Withdrawal--Active Protocol PO PRN (18:53)
[2024-03-19] MEDS ORDERED: MAGNESIUM HYDROXIDE SUSP 30 ML UDC PO PRN (18:53)
[2024-03-19] MEDS ORDERED: GABAPENTIN 1200MG ALCOHOL WITHDRAWAL LOAD PO STA (18:53)
[2024-03-19] MEDS: oxyCODONE HCL IR 5 MG TAB (IMMEDIATE RELEASE) PO PRN (19:27)
[2024-03-19] MEDS: GABAPENTIN 600 MG TAB PO ONE (19:32)
[2024-03-19] MEDS: ACETAMINOPHEN 500 MG TAB PO SCH (19:32)
[2024-03-19] MEDS: POTASSIUM CHLORIDE / WTR 10 MEQ/100 ML PLCT IV ONE (20:45)
[2024-03-19] MEDS: POTASSIUM CHLORIDE CRTAB 20 MEQ TABCR PO ONE (20:51)
[2024-03-20] MEDS: GABAPENTIN 600 MG TAB PO SCH ×2 (06:17→22:25)
[2024-03-20 07:07] LABS: Hematocrit (blood only) 33.5 % (37.0-47.0); Hemoglobin 11.2 g/dl (12.0-16.0); Mean Corpuscular Hemoglobin 35.7 pg (25.0-34.0); Mean Corpuscular Hgb Conc 33.4 g/dL (32.0-36.0); Mean Corpuscular Volume 106.7 fL (80.0-100.0); Mean Platelet Volume 9.2 fL (9.4-12.4); Platelet Count 151 K/uL (130-400); RDW Coefficient of Variation 12.6 % (11.5-14.5); RDW Standard Deviation 49.7 fL (36.4-46.3); Red Blood Count 3.14 M/uL (4.20-5.40); White Blood Count 8.39 K/ul (4.8-10.8)
[2024-03-20 07:33] LABS: Albumin Globulin Ratio 1.2 (0.9-2); Albumin Level 3.1 gm/dl (3.4-5.0); BUN Creatinine Ratio 5.4 (10-20); Bilirubin,Total 1.1 mg/dl (0.2-1.0); Calcium 7.2 mg/dl (8.6-10.3); Creatinine Clr Calc Pharmacy 157.6 ml/min; Est GFR (African American) 138.5 ml/min; Est GFR (Non-African American) 119.5 ml/min; Globulin 2.6 gm/dl (2.5-4.0); Magnesium 1.2 mg/dl (1.7-2.4); Phosphorus 4.6 mg/dl (2.5-4.9); Potassium 4.3 mmol/L (3.5-5.1); Total Protein 5.7 gm/dl (6.0-8.3)
[2024-03-20] MEDS: POTASSIUM CHLORIDE CRTAB 20 MEQ TABCR PO SCH (08:19)
[2024-03-20] MEDS: CEROVITE ADV FORMULA TAB PO SCH (08:20)
[2024-03-20] MEDS: FOLIC ACID 1 MG TAB PO SCH (08:20)
[2024-03-20] MEDS: THIAMINE HCL 100 MG TAB PO SCH (08:20)
[2024-03-20] MEDS: MAGNESIUM SULFATE / D5W 1 GM/100 ML BAG IV SCH (08:21)
[2024-03-20] MEDS: POLYETHYLENE (MIRALAX) 17 GM PACK PO SCH (08:21)
--- NOTE | 2024-03-20 09:27 | CT Scan Report ---
HEAD CT NONCONTRAST CT DOSE: 547.75 mGy.cm HISTORY: Fall down stairs, monitor head CT TECHNIQUE: Multiaxial CT images of the head were performed without the use of intravenous contrast. A utomated exposure control was utilized for this study. A dose lowering technique was utilized adheri ng to the principles of ALARA. Comparison: Head CT 03/19/2024. Findings: Bilateral nasal bone fractures are partially imaged on this study. The calvarium and skull base are intact. Posterior scalp swelling is again noted. The ventricles and sulci are within normal limits. There is no mass, acute hematoma, midline shift, or acute infarct. Stable tiny low-density ex tra-axial bilateral subdural collections involving the frontal and temporal lobes. These measure up t o 4 mm. No acute extra-axial hemorrhage identified. Impression: No significant change compared to the prior study. No acute intracranial abnormality. Stable tiny hyp odense bilateral subdural collections favoring subdural hygromas ACT 112: Negative or not required by law. Electronically signed by: Leandro Sanchez M.D. 03/20/2024 9:25 AM
--- NOTE | 2024-03-20 12:42 | Hospitalist Progress Note ---
Date of Service March 20, 2024 Assessment & Plan (1) Fall down stairs: (2) Alcohol intoxication: (3) Transaminitis: (4) Hypokalemia: Plan Danay Thomas is a 58y/o F with PMHx of essential tremor, alcohol abuse, tobacco use disorder, severe hepatic steatosis and other problems listed below who presented to the ED via EMS for evaluation after being found barely responsive at home by a neighbor. Patient previously presented to the [facility] ED on 02/18/24 for evaluation after etta taining a fall down steps. Patient was noted to have the following trauma- related injuries at that time: distal L clavicular fx, T4/T9 compression fx, S3 nondisplaced fx, C1 fx, occipital condyle fx, multiple L-sided rib fx's, nasal fx, right lamina papyracea fx and right inferior orbital wall fx, R mandibular dislocation. She was subsequently transferred to [facility] via [facility]. She was admitted at [facility] from 02/17 to 02/21. She did not undergo any surgical interventions. Mechanical Fall Alcohol Intoxication: History of multiple stable fractures as mentioned above Hypokalemia and mild transaminitis noted, otherwise labs appear unremarkable. UA negative. Urine tox positive for marijuana. Ethyl alcohol level 494.9 on presentation. CXR shows several healing L-sided rib fx's. Chest CT reveals subacute/healing T4 and T9 compression fx's from her previous fall. CTAP w/ no acute traumatic findings or acute fx's. Head CT w/ no acute intracranial hemorrhage but does show b/l subdural hygromas. Cervical spine CT w/ no acute cervical spine fx or subluxation. Old fractures from fall on 02/17 seen on imaging today. No acute fx's noted. Repeat head CT -did not show any acute bleeding but it did show tiny hypodense bilateral subdural collections favoring subdural hygromas as before. Alcohol w/d protocol - gabapentin taper, PRN Ativan. Continue folic acid, vit B12 supplementation. PT/OT evals. IVF w/ NSS x 2 bags. Clinically stable without any significant symptoms Will observe for any alcohol withdrawal symptoms Mild Transaminitis Severe Hepatic Steatosis: AST 160, ALT 66 and Alk Phos 199 on admission. Avoid hepatotoxic meds when able. Repeat CMP in AM, monitor LFTs. Repeat LFTs are slightly worse with AST at 437 and ALT 88 Hypokalemia: K+ 2.9 on presentation. 30mEq IV KCl repleted in ED. Set to receive another 10mEq IV KCl. Continue w/ 40mEq oral KCl tonight for daily total of 80mEq today. Start K+ supplement in AM. Continue to monitor K+ and replete PRN. Potassium level has come up to 4.3 but magnesium was low which was supplemented Will monitor electrolytes DVT Prophylaxis: SCDs/TEDs for now given recent fall. Code Status: DNR/DNI - As per discussion with patient at bedside. PCP: [facility] Disposition: Admit to PCU/Telemetry Patient seen in collaboration with Dr. Beard. Please see addendum. Admission and Anticipated Discharge Date Admission Date: March 19, 2024 Subjective 03/20/2024 Patient was seen and examined in telemetry unit She has been feeling better and is still complains neck pain and headache She denies any palpitation or shortness of breath Does not have any acute distress in bed Review of Systems Review of Systems: All systems reviewed and are unremarkable except as noted below Physical Exam Physical Exam: Lying in bed without any acute distress with cervical collar in situ Constitutional: + ill appearing and average body habitus Eyes: PERRL, conjunctivae normal, anicteric sclerae ENMT: external ear and nose normal, oropharynx normal Neck: trachea midline Has cervical collar in situ Respiratory: no respiratory distress Auscultation: lungs clear to auscultation bilaterally Cardiovascular: Rate/Rhythm: regular rate, regular rhythm and + tachycardic Heart Sounds: normal S1 and normal S2; no murmur Extremities: no edema Gastrointestinal (Abdomen): Inspection/Auscultation: normal bowel sounds and + abdominal edema; abdomen not distended Percussion/Palpation: abdomen soft; abdomen nontender Musculoskeletal: No acute arthritis involving any of the joints Neurologic: Alert, awake and oriented x 3. No focal sensory or motor deficit appreciated Lymphatic: no cervical or axillary lymphadenopathy Results & Data Results & Data Vital Signs (Past 12 Hours) Vital Signs Temp Pulse Pulse Resp BP BP Pulse Ox 03/20/24 07:00 03/20/24 07:00 36.9 C 107 H 18 118/71 96 03/20/24 06:00 106 H 03/20/24 04:15 36.7 C 111 H 17 133/91 99 O2 Del Method 09/02/24 07:00 Room Air 03/20/24 07:00 Room Air 03/20/24 06:00 03/20/24 04:15 Room Air Laboratory Results Short CBC 03/19/24 03/20/24 Range/Units 15:06 06:39 WBC 4.94 8.39 (4.8-10.8) K/ul Hgb 13.2 11.2 L (12.0-16.0) g/dl Hct 39.6 33.5 L (37.0-47.0) % Plt Count 186 151 (130-400) K/uL BMP 03/19/24 03/20/24 15:06 06:39 Sodium 144 139 Potassium 2.9 L 4.3 D Chloride 101 102 Carbon Dioxide 26 27 BUN 2 L 2 L Creatinine 0.39 L 0.37 L Glucose 111 H 75 Calcium 9.1 7.2 L Cardiac Enzymes 03/19/24 03/20/24 Range/Units 15:06 06:39 Total Creatine Kinase 46 33 (26-192) U/L Liver Function 03/19/24 03/20/24 Range/Units 15:06 06:39 Total Bilirubin 0.4 1.1 H D (0.2-1.0) mg/dl AST 160 H 437 H (13-39) U/L ALT 66 H 88 H (7-52) U/L Alkaline Phosphatase 199 H 179 H (34-104) U/L Albumin 3.6 3.1 L (3.4-5.0) gm/dl Urine 03/19/24 Range/Units 15:44 Urine Color Yellow Urine Appearance Clear (Clear) Urine pH 5.5 (4.5-7.5) Ur Specific [place] 1.021 (1.000-1.030) Urine Protein Negative (Negative) Urine Glucose (UA) Negative (Negative) Medications Administered Current Inpatient Medications Acetaminophen (Acetaminophen 500 Mg Tab) 500 mg PO Q6H [facility] Stop: 04/18/24 18:52 Last Admin: 03/20/24 06:13 Dose: Not Given Folic Acid (Folic Acid 1 Mg Tab) 1 mg PO DAILY [facility] Stop: 04/19/24 08:59 Last Admin: 03/20/24 08:20 Dose: 1 mg Gabapentin (Gabapentin 600 Mg Tab) 600 mg PO Q8H [facility] Stop: 03/21/24 14:01 Gabapentin (Gabapentin 600 Mg Tab) 600 mg PO Q12H [facility] Stop: 03/22/24 12:01 Gabapentin (Gabapentin 600 Mg Tab) 600 mg PO Q24H [facility] Stop: 03/23/24 12:01 Hydromorphone HCl (Hydromorphone Inj 1 Mg/Ml Syringe) 1 mg IV Q6H PRN PRN Reason: Severe Pain (Scale 7, 8, 9,10) Stop: 04/02/24 18:52 Sodium Chloride (Nss) 1,000 mls @ 65 mls/hr IV .[id number] [facility] Stop: 03/21/24 01:39 Last Admin: 03/20/24 11:10 Dose: 65 mls/hr Lorazepam (Lorazepam 1 Mg Tab) 1 mg PO UD PRN; Protocol PRN Reason: EtOH Withdrawal AWSS Score 6,7 Stop: 04/18/24 18:52 Lorazepam (Lorazepam 1 Mg Tab) 2 mg PO UD PRN; Protocol PRN Reason: EtOH Withdrawal AWSS Score 8,9 Stop: 04/18/24 18:52 Magnesium Hydroxide (Magnesium Hydroxide Susp 30 Ml Udc) 30 ml PO Q12H PRN PRN Reason: Constipation Stop: 04/18/24 18:52 Multivitamins/Minerals (Cerovite Adv Formula Tab) 1 tab PO [facility] Stop: 04/19/24 08:59 Last Admin: 03/20/24 08:20 Dose: 1 tab Ondansetron HCl (Ondansetron Inj 2 Mg/Ml 2 Ml Vial) 4 mg IV Q6H PRN PRN Reason: Nausea Stop: 04/18/24 18:52 Oxycodone HCl (Oxycodone Hcl Ir 5 Mg Tab (Immediate Release)) 5 mg PO Q6H PRN PRN Reason: Moderate Pain (Scale 4, 5, 6) Stop: 04/02/24 18:52 Last Admin: 03/20/24 07:31 Dose: 5 mg Polyethylene Glycol (Polyethylene (Miralax) 17 Gm Pack) 17 gm PO DAILY [facility] Stop: 04/19/24 08:59 Last Admin: 03/20/24 08:21 Dose: Not Given Potassium Chloride (Potassium Chloride Crtab 20 Meq Tabcr) 20 meq PO QAM [facility] Stop: 04/19/24 08:59 Last Admin: 03/20/24 08:19 Dose: 20 meq Thiamine HCl (Thiamine Hcl 100 Mg Tab) 100 mg PO DAILY [facility] Stop: 04/19/24 08:59 Last Admin: 03/20/24 08:20 Dose: 100 mg (1) Fall down stairs Encounter type: initial encounter Qualified Code(s): W10.8XXA - Fall (on) (from) other stairs and steps, initial encounter (2) Alcohol intoxication Complication of substance-induced condition: with unspecified complication Qualified Code(s): F10.929 - Alcohol use, unspecified with intoxication, unspecified
--- NOTE | 2024-03-20 14:09 | Ultrasound Report ---
PELVIC ULTRASOUND, TRANSABDOMINAL HISTORY: 4.5 cm cystic lesion within the right hemipelvis COMPARISON: Abdomen and pelvis CT 02/18/2024. FINDINGS: Uterus: Not visualized due to shadowing artifact from the indwelling Gupta catheter. Endometrial stripe: Right ovary: Normal in size and demonstrates normal color flow. There is a 3.6 cm cyst within the rig ht ovary, unchanged. No septations or soft tissue components identified. Left ovary: Obscured by overlying bowel gas. No adnexal masses. Miscellaneous:No pelvic free fluid. IMPRESSION: 1. The uterus and left ovary were not identified. 2. Redemonstration of the 3.6 cm right ovarian cyst. Although technically indeterminate, this appears to demonstrate a simple appearance at this time. 3-6 month ultrasound follow-up can be performed to ensure stability/resolution. ACT 112: Negative or not required by law. Electronically signed by: Leandro Sanchez M.D. 03/20/2024 2:08 PM
--- NOTE | 2024-03-20 19:54 | Electrocardiogram Report ---
Test Reason : Blood Pressure : */* mmHG Vent. Rate : 79 BPM Atrial Rate : 79 BPM P-R Int : 180 ms QRS Dur : 70 ms QT Int : 410 ms P-R-T Axes : 74 49 71 degrees QTcB Int : 470 ms Normal sinus rhythm Low voltage QRS Poor R wave progression, consider anterior TN vs. lead placement vs. LVH Abnormal ECG When compared with ECG of 18-Feb-2024 13:50, No significant change was found Confirmed by Magan Palafox ([id number]) on 03/20/2024 7:54:36 PM Referred By: Confirmed By: Magan Palafox
[2024-03-21 07:30] LABS: Albumin Level 3.1 gm/dl (3.4-5.0); Anion Gap 6 (3-11); Bilirubin,Total 1.1 mg/dl (0.2-1.0); Carbon Dioxide 28 mmol/L (21-32); Chloride 103 mmol/L (98-107); Potassium 4.3 mmol/L (3.5-5.1); Sodium 137 mmol/L (136-145)
[2024-03-21 07:37] LABS: Alanine Aminotransferase 81 U/L (7-52); Albumin Globulin Ratio 1.2 (0.9-2); Alkaline Phosphatase 166 U/L (34-104); Aspartate Aminotransferase 281 U/L (13-39); Blood Urea Nitrogen 3 mg/dl (6-23); Creatinine Clr Calc Pharmacy 137.9 ml/min; Est GFR (African American) 131.8 ml/min; Est GFR (Non-African American) 113.7 ml/min; Globulin 2.6 gm/dl (2.5-4.0); Glucose 76 mg/dl (70-99(Fasting)); Phosphorus 3.5 mg/dl (2.5-4.9); Total Protein 5.7 gm/dl (6.0-8.3)
[2024-03-21 08:21] LABS: Basophils # (auto) 0.04 K/uL (0.00-0.20); Basophils % (auto) 0.8 %; Eosinophils # (auto) 0.08 K/uL (0.00-0.50); Eosinophils % (auto) 1.6 %; Hematocrit (blood only) 33.8 % (37.0-47.0); Hemoglobin 11.2 g/dl (12.0-16.0); Immature Granulocytes # (auto) 0.04 K/uL (0.01-0.20); Immature Granulocytes % (auto) 0.8 %; Lymphocytes # (auto) 1.98 K/uL (1.20-3.40); Lymphocytes % (auto) 40.7 %; Mean Corpuscular Hgb Conc 33.1 g/dL (32.0-36.0); Mean Corpuscular Volume 108.7 fL (80.0-100.0); Mean Platelet Volume 9.1 fL (9.4-12.4); Monocytes # (auto) 0.47 K/uL (0.11-0.59); Monocytes % (auto) 9.7 %; Neutrophils # (auto) 2.25 K/uL (1.40-6.50); Neutrophils % (auto) 46.4 %; Platelet Count 150 K/uL (130-400); RDW Coefficient of Variation 12.4 % (11.5-14.5); RDW Standard Deviation 49.1 fL (36.4-46.3); Red Blood Count 3.11 M/uL (4.20-5.40); White Blood Count 4.86 K/ul (4.8-10.8)
--- NOTE | 2024-03-21 10:46 | Hospitalist Progress Note ---
Date of Service March 21, 2024 Assessment & Plan (1) Fall down stairs: (2) Alcohol intoxication: (3) Transaminitis: (4) Hypokalemia: Plan Danay Thomas is a 58y/o F with PMHx of essential tremor, alcohol abuse, tobacco use disorder, severe hepatic steatosis and other problems listed below who presented to the ED via EMS for evaluation after being found barely responsive at home by a neighbor. Patient previously presented to the [facility] ED on 02/18/24 for evaluation after etta taining a fall down steps. Patient was noted to have the following trauma- related injuries at that time: distal L clavicular fx, T4/T9 compression fx, S3 nondisplaced fx, C1 fx, occipital condyle fx, multiple L-sided rib fx's, nasal fx, right lamina papyracea fx and right inferior orbital wall fx, R mandibular dislocation. She was subsequently transferred to [facility] via [facility]. She was admitted at [facility] from 02/17 to 02/21. She did not undergo any surgical interventions. Mechanical Fall Alcohol Intoxication: History of multiple stable fractures as mentioned above Hypokalemia and mild transaminitis noted, otherwise labs appear unremarkable. UA negative. Urine tox positive for marijuana. Ethyl alcohol level 494.9 on presentation. CXR shows several healing L-sided rib fx's. Chest CT reveals subacute/healing T4 and T9 compression fx's from her previous fall. CTAP w/ no acute traumatic findings or acute fx's. Head CT w/ no acute intracranial hemorrhage but does show b/l subdural hygromas. Cervical spine CT w/ no acute cervical spine fx or subluxation. Old fractures from fall on 02/17 seen on imaging today. No acute fx's noted. Repeat head CT -did not show any acute bleeding but it did show tiny hypodense bilateral subdural collections favoring subdural hygromas as before. Alcohol w/d protocol - gabapentin taper, PRN Ativan. Continue folic acid, vit B12 supplementation. Pt is without withdrawal symptoms Mild Transaminitis Severe Hepatic Steatosis: LFTS remain elevated, but stable she was counselled on alcohol abstinence Hypokalemia: repleted Anemia hgb stable, hgb trending up from hospitalization at [facility] will obtain anemia panel, continue MVI DVT Prophylaxis: SCDs/TEDs for now given recent fall. Code Status: DNR/DNI - As per discussion with patient at bedside. PCP: [facility] Disposition: Admit to PCU/Telemetry, pt wishes to discharge to home and declining rehab, encouraged pt to consider oupt PT, will discuss with CM A total of 52 minutes was spent coordinating, documenting, and providing care for this patient excluding time spent in the performance of separately billed services. This included personally viewing all current laboratories and imaging studies, medication reconciliation, outpatient chart review, and discussion with specialists. Admission and Anticipated Discharge Date Admission Date: March 19, 2024 Supervising Physician Co-Signing Physician Notes Attending addendum: The patient was seen and examined in telemetry unit She has been stable without any significant symptoms She has had physical therapy and wants to be discharged Does not have any withdrawal symptoms on examination On examination Remains hemodynamically stable with blood pressure on the upper side at 147 100 Other physical examinations unremarkable except she has a cervical collar in situ Her labs, medication and imaging studies reviewed Alcoholism with alcohol intoxication and falls Remains medically stable does not want to go to inpatient rehab Agree with assessment and plan as outlined above by Leighann Quinn PA-C and take the full responsibility of the care. Total time spent in examination and documentation and talking to the patient was [address] Felicia Finley Subjective Pt was seen and examined in room 216-1. F/U freq fall and fractures. She continues to have left sided rib pain, back pain and shoulder pain. She would like to get her neck collar removed and cleaned. She denies f/c/s, cough, uri sx, n/v/d. She is tolerating diet. She is hopeful to go home. She reports she has a 2 story house with bathroom upstairs. Her two most recent falls occurred coming down the steps. She feel alcohol may have played a factor. She is planning to move to handicap accessible apartment. Review of Systems Review of Systems: All systems reviewed & are unremarkable except as noted in HPI & below Physical Exam Physical Exam: Gen: Thin, NAD, A&O x3, sitting up in bed Neck: C collar in place HEENT: Normocephalic, atraumatic, conjunctivae moist, sclerae anicteric, mucous membranes moist. Lung: Clear to Auscultation bilaterally, no wheezes/rales/rhonchi Heart: Regular rate, regular rhythm, no murmurs, rubs, or gallops Abdomen: Soft, NT, ND +BS x 4 Extremities: No edema Skin: Warm, no rash, negative turgor. Results & Data Results & Data Vital Signs (Past 12 Hours) Vital Signs Temp Pulse Pulse Resp BP Pulse Ox O2 Del Method 03/21/24 07:30 73 03/21/24 07:24 36.7 C 81 16 153/88 H 98 Room Air 03/21/24 03:34 36.6 C 76 18 136/95 97 Room Air 03/20/24 23:42 89 03/20/24 23:42 Room Air Laboratory Results Short CBC 03/21/24 03/21/24 Range/Units 05:38 07:57 WBC Cancelled 4.86 Hgb Cancelled 11.2 L Hct Cancelled 33.8 L Plt Count Cancelled 150 BMP 03/21/24 05:38 Sodium 137 Potassium 4.3 Chloride 103 Carbon Dioxide 28 BUN 3 L Creatinine 0.43 L Glucose 76 Calcium 8.0 L Liver Function 03/21/24 Range/Units 05:38 Total Bilirubin 1.1 H (0.2-1.0) mg/dl AST 281 H (13-39) U/L ALT 81 H (7-52) U/L Alkaline Phosphatase 166 H (34-104) U/L Albumin 3.1 L (3.4-5.0) gm/dl I have independently reviewed and interpreted patient's CBC, CMP Medications Administered Current Inpatient Medications Acetaminophen (Acetaminophen 500 Mg Tab) 500 mg PO Q6H [facility] Stop: 04/18/24 18:52 Last Admin: 03/21/24 06:29 Dose: 500 mg Folic Acid (Folic Acid 1 Mg Tab) 1 mg PO DAILY [facility] Stop: 04/19/24 08:59 Last Admin: 03/21/24 08:17 Dose: 1 mg Gabapentin (Gabapentin 600 Mg Tab) 600 mg PO Q8H [facility] Stop: 03/21/24 14:01 Last Admin: 03/21/24 06:29 Dose: 600 mg Gabapentin (Gabapentin 600 Mg Tab) 600 mg PO Q12H [facility] Stop: 03/22/24 12:01 Gabapentin (Gabapentin 600 Mg Tab) 600 mg PO Q24H [facility] Stop: 03/23/24 12:01 Hydromorphone HCl (Hydromorphone Inj 1 Mg/Ml Syringe) 1 mg IV Q6H PRN PRN Reason: Severe Pain (Scale 7, 8, 9,10) Stop: 04/02/24 18:52 Lorazepam (Lorazepam 1 Mg Tab) 1 mg PO UD PRN; Protocol PRN Reason: EtOH Withdrawal AWSS Score 6,7 Stop: 04/18/24 18:52 Lorazepam (Lorazepam 1 Mg Tab) 2 mg PO UD PRN; Protocol PRN Reason: EtOH Withdrawal AWSS Score 8,9 Stop: 04/18/24 18:52 Magnesium Hydroxide (Magnesium Hydroxide Susp 30 Ml Udc) 30 ml PO Q12H PRN PRN Reason: Constipation Stop: 04/18/24 18:52 Multivitamins/Minerals (Cerovite Adv Formula Tab) 1 tab PO QAM [facility] Stop: 04/19/24 08:59 Last Admin: 03/21/24 08:17 Dose: 1 tab Ondansetron HCl (Ondansetron Inj 2 Mg/Ml 2 Ml Vial) 4 mg IV Q6H PRN PRN Reason: Nausea Stop: 04/18/24 18:52 Oxycodone HCl (Oxycodone Hcl Ir 5 Mg Tab (Immediate Release)) 5 mg PO Q6H PRN PRN Reason: Moderate Pain (Scale 4, 5, 6) Stop: 04/02/24 18:52 Last Admin: 03/21/24 08:47 Dose: 5 mg Polyethylene Glycol (Polyethylene (Miralax) 17 Gm Pack) 17 gm PO DAILY [facility] Stop: 04/19/24 08:59 Last Admin: 03/21/24 08:18 Dose: Not Given Potassium Chloride (Potassium Chloride Crtab 20 Meq Tabcr) 20 meq PO QAM [facility] Stop: 04/19/24 08:59 Last Admin: 03/21/24 08:17 Dose: 20 meq Thiamine HCl (Thiamine Hcl 100 Mg Tab) 100 mg PO DAILY [facility] Stop: 04/19/24 08:59 Last Admin: 03/21/24 08:17 Dose: 100 mg (1) Fall down stairs Encounter type: initial encounter Qualified Code(s): W10.8XXA - Fall (on) (from) other stairs and steps, initial encounter (2) Alcohol intoxication Complication of substance-induced condition: with unspecified complication Qualified Code(s): F10.929 - Alcohol use, unspecified with intoxication, unspecified
[2024-03-21 11:12] VITALS: RESP 18
[2024-03-21 11:49] LABS: Iron 197 mcg/dl (35-150); Unsaturated Iron Binding Cap < 55 mcg/dl (155-355)
[2024-03-21 11:56] LABS: Folate (Folic Acid),Ser orPlas > 22.30 ng/ml (>5.38)
[2024-03-21 11:57] LABS: Vitamin B12 464 pg/ml (180-914)
[2024-03-21 12:10] LABS: Ferritin 495.8 ng/ml (8-388)
[2024-03-22] MEDS: GABAPENTIN 600 MG TAB PO SCH (00:01)
[2024-03-22 11:03] VITALS: PULSE 92; TEMP 97.9; O2SAT 95
[2024-03-22 12:43] VITALS: BP 133/91
--- NOTE | 2024-03-22 14:05 | Discharge Summary ---
<Statement entered by Erik Gomes DO - 03/22/24 14:36> I have seen and examined the patient and have discussed the case with the provider above. I have reviewed the advanced practitioner's documentation, and I agree with, and take responsibility for that plan of care. 13 minutes spent coordinating care and evaluation patient. Strongly encourage patient to abstain from alcohol. Discharge plans as outlined below Discharge Summary Date of Service March 22, 2024 Principal Dx & Hospital Course #1 = Principal Diagnosis (1) Fall down stairs: (2) Alcohol intoxication: (3) Transaminitis: (4) Hypokalemia: Plan Danay Thomas is a 58y/o F with PMHx of essential tremor, alcohol abuse, tobacco use disorder, severe hepatic steatosis and other problems listed below who presented to the ED via EMS for evaluation after being found barely responsive at home by a neighbor. Patient previously presented to the [facility] ED on 02/18/24 for evaluation after sustaining a fall down steps. Patient was noted to have the following trauma- related injuries at that time: distal L clavicular fx, T4/T9 compression fx, S3 nondisplaced fx, C1 fx, occipital condyle fx, multiple L-sided rib fx's, nasal fx, right lamina papyracea fx and right inferior orbital wall fx, R mandibular dislocation. She was subsequently transferred to [facility] via [facility]. She was admitted at [facility] from 02/17 to 02/21. She did not undergo any surgical interventions. Mechanical Fall Alcohol Intoxication: History of multiple stable fractures as mentioned above Hypokalemia and mild transaminitis noted, otherwise labs appear unremarkable. UA negative. Urine tox positive for marijuana. Ethyl alcohol level 494.9 on presentation. CXR shows several healing L-sided rib fx's. Chest CT reveals subacute/healing T4 and T9 compression fx's from her previous fall. CTAP w/ no acute traumatic findings or acute fx's. Head CT w/ no acute intracranial hemorrhage but does show b/l subdural hygromas. Cervical spine CT w/ no acute cervical spine fx or subluxation. Old fractures from fall on 02/17 seen on imaging today. No acute fx's noted. Repeat head CT -did not show any acute bleeding but it did show tiny hypodense bilateral subdural collections favoring subdural hygromas as before. Alcohol w/d protocol - gabapentin taper, PRN Ativan. Continue folic acid, vit B12 supplementation. Pt is without withdrawal symptoms Mild Transaminitis Severe Hepatic Steatosis: LFTS remain elevated, but stable she was counselled on alcohol abstinence Hypokalemia: repleted Anemia hgb stable, hgb trending up from hospitalization at [facility] will obtain anemia panel, continue MVI DVT Prophylaxis: SCDs/TEDs for now given recent fall. Code Status: DNR/DNI - As per discussion with patient at bedside. PCP: Pt to establish with Dr. Hendricks Disposition: Admit to PCU/Telemetry, pt wishes to discharge to home and declining rehab, encouraged pt to consider oupt PT, will discuss with CM A total of 45 minutes was spent coordinating, documenting, and providing care for this patient excluding time spent in the performance of separately billed services. This included personally viewing all current laboratories and imaging studies, medication reconciliation, outpatient chart review, and discussion with specialists. Notes For Next Care Provider Please ensure patient follows up neurosurgery and oralmaxillofacial surgery at [facility] Continue to encourage alcohol cessation Medication Changes From Visit Continue all medications as prescribed. You have been prescribed oxycodone 5mg to take every 6 hours NEEDED for SEVERE pain. Do not use this medication with alcohol or operative a motor vehicle. Continue tylenol as needed for mild to moderate pain. Do not use more than 2,00mg of tylenol in 24 hours. Admission HPI Per Admitting Provider Danay Thomas is a 58y/o F with PMHx of essential tremor, alcohol abuse, tobacco use disorder, severe hepatic steatosis and other problems listed below who presented to the ED via EMS for evaluation after being found barely responsive at home by a neighbor. History obtained from patient, ex- at bedside and associated chart review. Patient previously presented to the [facility] ED on 02/18/24 for evaluation after sustaining a fall down steps. Patient was noted to have the following trauma- related injuries at that time: distal L clavicular fx, T4/T9 compression fx, S3 nondisplaced fx, C1 fx, occipital condyle fx, multiple L-sided rib fx's, nasal fx, right lamina papyracea fx and right inferior orbital wall fx, R mandibular dislocation. She was subsequently transferred to [facility] via [facility]. She was admitted at [facility] from 02/17 to 02/21. She did not undergo any surgical interventions. Today, patient was found on the ground by her neighbor around 4AM. She had sustained at fall down a flight of stairs in her 2-story apartment [approximately 14 steps]. Her ex-, Oli, was contacted by the neighbor that found her. He reports that the neighbor who found her was able to get her back upstairs to her bedroom. He went over to her apartment around 1PM this afternoon to check on her. Reports that he could smell alcohol on her breath. He thinks she consumed approximately 1 bottle of vodka (~750mL) in the past 24hrs. Patient does not remember if she lost consciousness after the fall. Patient has a C-collar in place during the fall, which has been on since 02/17. No recent fevers or chills. Patient is endorsing some back pain at this time. Denies any N/V, abdominal pain or urinary issues. No BM in 2 days. Patient smokes "a few" cigarettes/day. Also smokes marijuana. Admission Exam Per Admitting Provider GENERAL: Alert and oriented x3. NAD, on RA. C collar in place. Appears frail/weak. HEENT: No pallor, no icterus. Pupils equal, round and reactive to light. Oral mucosa moist. Upper lip x central x horizontal laceration x about 1 cm. apposed edges. NECK: No JVD, no neck masses. c collar in place HEART: S1 and S2 heard. Regular rate and rhythm. No murmur, no gallop. RESPIRATORY SYSTEM: Normal AP diameter. No accessory muscle use. No wheezing, no crackles. ABDOMEN: Soft, bowel sounds present, nontender, no distention. CENTRAL NERVOUS SYSTEM: No facial droop. Speech is clear. Obeys simple commands. Moves extremities. power 5/5 all limbs. EXTREMITIES: No edema, no erythema seen. SKIN: multiple bruise all over the body in diff stages of healing. Left flank bruise appears new. Discharge Exam Gen: Thin, NAD, A&O x3, sitting up in bed Neck: C collar in place HEENT: Normocephalic, atraumatic, conjunctivae moist, sclerae anicteric, mucous membranes moist. Lung: Clear to Auscultation bilaterally, no wheezes/rales/rhonchi Heart: Regular rate, regular rhythm, no murmurs, rubs, or gallops Abdomen: Soft, NT, ND +BS x 4 Extremities: No edema Skin: Warm, no rash, negative turgor. Updated Medication List Medication Instructions Recorded Confirmed Type acetaminophen 500 mg tablet 1,000 mg PO Q12H PRN Pain 02/18/24 03/19/24 History folic acid 1 mg tablet 1 mg PO DAILY 03/19/24 03/19/24 History ibuprofen 200 mg tablet 200 mg PO Q6H PRN Pain 03/19/24 03/19/24 History thiamine HCl (vitamin B1) 100 mg PO DAILY 03/19/24 03/19/24 History oxycodone 5 mg tablet 5 mg PO Q6H PRN severe pain (scale 03/22/24 Rx score 7-10) #12 tabs Hospital Stay Data Consultations 03/19/24 16:26 ED Decision to Admit Stat Diagnostic Imagining Performed Abdomen/Pelvis CT 03/19/24 15:08 CT OF THE ABDOMEN AND PELVIS WITH CONTRAST CLINICAL HISTORY: Trauma COMPARISON STUDY: CT of the abdomen and pelvis February 18, 2024. TECHNIQUE: Following IV administration of 93 mL of Optiray, axial images of the abdomen and pelvis were obtained from the lung bases to the proximal femurs. Images were reviewed in the axial, sagittal, and coronal planes. IV contrast was administered without complication. Automated exposure control was utilized for the study. A dose lowering technique was utilized adhering to the principles of ALARA. FINDINGS: Multiple healing left-sided rib fractures are noted. There is a subacute/healing T9 compression fracture. No acute lumbar spine, pelvic or hip fractures are identified. There is severe hepatic steatosis. There is no evidence for traumatic injury to the liver, spleen, adrenal glands, kidneys or pancreas. 3 mm right renal calculus is present. There are are no ureteral calculi. There is no hydronephrosis. A 4.5 cm water attenuation right pelvic lesion likely arises from the right ovary. There is no hemoperitoneum. There is no retroperitoneal hematoma. Scattered sclerotic lesions favor bone islands. IMPRESSION: 1. No acute traumatic findings within the abdomen or pelvis. 2. No acute fractures. 3. Severe hepatic steatosis. 4. 4.5 cm cystic lesion within the right hemipelvis. This likely reflects an ovarian cyst. Nonemergent pelvic ultrasound is recommended for further evaluation. ACT 112: Negative or not required by law. Electronically signed by: Agustin Carrero M.D. 03/19/2024 3:[address] 03/19/24 15:08 CT OF THE CERVICAL SPINE WITHOUT CONTRAST CLINICAL HISTORY: Trauma COMPARISON STUDY: Cervical spine CT February 18, 2024. TECHNIQUE: Helical axial images of the cervical spine were obtained without IV contrast. Sagittal and coronal reconstructions were viewed. Automated exposure control was utilized for the study. A dose lowering technique was utilized adhering to the principles of ALARA. FINDINGS: No acute cervical spine fractures are present. There has been no change in alignment of the subacute fractures of the bilateral anterior arch of C1 since CT of March 03, 2024. Callus formation is noted. A nondisplaced left occipital condyle fracture similar in appearance. No additional fractures within the cervical spine are present. Moderate multilevel degenerative changes within the spine are noted. IMPRESSION: 1. No acute cervical spine fracture or subluxation. 2. No change in alignment of the subacute fractures of the anterior arch of C1 since CT of February 18, 2024. Interval callus formation. No significant bony bridging. Stability of these fractures is difficult to determine by CT. 3. No change in alignment of a nondisplaced left occipital condyle fracture. ACT 112: Negative or not required by law. Electronically signed by: Agustin Carrero M.D. 03/19/2024 3:[address] 03/19/24 15:08 CT OF THE CHEST WITH IV CONTRAST CLINICAL HISTORY: Trauma COMPARISON STUDY: Chest CT February 18, 2024. TECHNIQUE: Following IV administration of 93 mL of Optiray, helical axial images of the chest were obtained. Sagittal and coronal reconstructions were viewed as well as maximal intensity projections on an independent 3-D workstation. Automated exposure control was utilized for the study. A dose lowering technique was utilized adhering to the principles of ALARA. FINDINGS: There is no evidence for traumatic injury to the thoracic aorta. There is no mediastinal hematoma. Size of the heart is normal. There is no pericardial effusion. Elevation of the right hemidiaphragm is unchanged. There is severe hepatic steatosis, unchanged. No pneumothorax or pleural effusion is present. Linear densities in groundglass opacities favor atelectasis. There is no pulmonary contusion. Subacute/healing T4 and T9 compression fractures are again noted. There are no acute thoracic spine fractures. Multiple healing left- sided rib fractures are again noted. No acute rib fractures are identified. A healing distal left clavicular fracture is noted. There is also a probable healing left acromial fracture, partially imaged on this exam. IMPRESSION: 1. No acute traumatic findings within the chest. 2. Subacute/healing T4 and T9 compression fractures. No acute thoracic spine fractures. Healing fractures of several left-sided ribs, the distal left clavicle and left acromion. ACT 112: Negative or not required by law. Electronically signed by: Agustin Carrero M.D. 03/19/2024 3:50 PM Chest X-Ray 03/19/24 15:08 SUPINE PORTABLE AP CHEST RADIOGRAPH CLINICAL HISTORY: trauma COMPARISON STUDY: Chest CTs February 18, 2024 and March 19, 2024. FINDINGS: Elevation of the right hemidiaphragm is unchanged. There is no pneumothorax or pleural effusion. There is no consolidation to suggest pneumonia. There are several healing left-sided rib fractures. IMPRESSION: 1. No acute cardiopulmonary findings. 2. Several healing left-sided rib fractures. 3. Stable elevation of the right hemidiaphragm. ACT 112: Negative or not required by law. Electronically signed by: Agustin Carrero M.D. 03/19/2024 4:[address] 03/19/24 15:08 CT OF THE HEAD WITHOUT CONTRAST CLINICAL HISTORY: Trauma COMPARISON STUDY: Head CT February 18, 2024. TECHNIQUE: Helical axial images of the head were obtained without IV contrast. Automated exposure control was utilized for the study. A dose lowering technique was utilized adhering to the principles of ALARA. FINDINGS: No acute intracranial hemorrhage is present. Ventricular system is unremarkable. There has been interval development of small hypodense bilateral subdural collections overlying the bilateral frontal and temporal lobes since CT of February 18, 2024. These measure 4 mm in thickness. These have no significant mass effect. Basal cisterns are patent. There are no calvarial fractures. Subcutaneous of bone fractures were shown on CT of February 18, 2024. C1 vertebral fracture is also shown on prior cervical spine CT. IMPRESSION: 1. No acute intracranial hemorrhage. 2. Interval development of small hypodense bilateral subdural collections since CT of February 18, 2024. These favor bilateral subdural hygromas. Given time course, chronic subdural hematomas are considered less likely but could appear similar. No significant mass effect at this time. Follow-up head CT in 24 hours is recommended. 3. No calvarial fractures. 4. C1 fractures and bilateral nasal bone fractures which were shown on CT of February 18, 2024. ACT 112: Negative or not required by law. Electronically signed by: Agustin Carrero M.D. 03/19/2024 3:38 PM Pelvis Ultrasound 03/20/24 00:00 PELVIC ULTRASOUND, TRANSABDOMINAL HISTORY: 4.5 cm cystic lesion within the right hemipelvis COMPARISON: Abdomen and pelvis CT 02/18/2024. FINDINGS: Uterus: Not visualized due to shadowing artifact from the indwelling Gupta catheter. Endometrial stripe: Right ovary: Normal in size and demonstrates normal color flow. There is a 3.6 cm cyst within the right ovary, unchanged. No septations or soft tissue components identified. Left ovary: Obscured by overlying bowel gas. No adnexal masses. Miscellaneous:No pelvic free fluid. IMPRESSION: 1. The uterus and left ovary were not identified. 2. Redemonstration of the 3.6 cm right ovarian cyst. Although technically indeterminate, this appears to demonstrate a simple appearance at this time. 3-6 month ultrasound follow-up can be performed to ensure stability/resolution. ACT 112: Negative or not required by law. Electronically signed by: Leandro Sanchez M.D. 03/20/2024 2:[address] 03/20/24 08:[address] DOSE: 547.75 mGy.cm HISTORY: Fall down stairs, monitor head CT TECHNIQUE: Multiaxial CT images of the head were performed without the use of intravenous contrast. Automated exposure control was utilized for this study. A dose lowering technique was utilized adhering to the principles of ALARA. Comparison: Head CT 03/19/2024. Findings: Bilateral nasal bone fractures are partially imaged on this study. The calvarium and skull base are intact. Posterior scalp swelling is again noted. The ventricles and sulci are within normal limits. There is no mass, acute hematoma, midline shift, or acute infarct. Stable tiny low-density extra-axial bilateral subdural collections involving the frontal and temporal lobes. These measure up to 4 mm. No acute extra-axial hemorrhage identified. Impression: No significant change compared to the prior study. No acute intracranial abnormality. Stable tiny hypodense bilateral subdural collections favoring subdural hygromas ACT 112: Negative or not required by law. Electronically signed by: Leandro Sanchez M.D. 03/20/2024 9:25 AM Pending Results Patient Have Any Pending Studies at Discharge: No Discharge Instructions Given to Patient (Per Discharging Provider) MEDICATION CHANGES: Continue all medications as prescribed. You have been prescribed oxycodone 5mg to take every 6 hours NEEDED for SEVERE pain. Do not use this medication with alcohol or operative a motor vehicle. Continue tylenol as needed for mild to moderate pain. Do not use more than 2,00mg of tylenol in 24 hours. SUMMARY OF TEST RESULTS: You were admitted to hospital after sustaining another fall. Thankfully all of your old fractures remain stable and there is no new fracture. You were treated with pain control, ice and Physical therapy while you were hospitalized. PENDING TEST RESULTS: None RECOMMENDATIONS FOR FOLLOW-UP: Please abstain from drinking ANY alcohol as this puts you at a significant increased risk for fall and further injury to yourself. Absolutely no alcohol when using oxycodone pain medication. Do not operate a motor vehicle while using this medication. No Driving until cleared by your neurosurgeon. Please keep all follow up appointments with your Primary Care Provider and specialists regarding your fractures. Continue to wear cervical collar at all times and continue to follow instructions/restrictions as directed by your Team at [facility]. OTHER INSTRUCTIONS: Seek medical attention if you have: * temperature above 101 * chest pain or trouble breathing * abdominal pain, nausea, vomiting * diarrhea, dark stools or bloody stools * any unanswered questions or concerns Call 911 if symptoms are severe. Please take good care of yourself. It has been a pleasure taking care of you. Please take care of yourself. If you have any questions regarding your recent hospitalization please contact [facility] [address] and request [facility] [place] [facility] @ [phone]. Total Time Total Time Spent Total Time Spent (In Minutes): 45 minutes
[2024-03-23] MEDS ORDERED: GABAPENTIN 600 MG TAB PO SCH (12:00)
== END 2024-03-22 14:00 | disposition home or self-care (01) | DRG 897 ==
LOC: ED 14:54 → 2S 16:54 → SUATTDRO 16:54 → 2S 18:17

== ENCOUNTER 2024-08-07 12:42 | Inpatient (IN) ==
--- NOTE | 2024-08-07 13:13 | Emergency Department Note ---
Impression & Plan Alcohol intoxication, Hypokalemia, Transaminitis, Alcoholic, Fall, Laceration of scalp, CHI (closed head injury) ED Provider Note NAME: FADY MADRIGAL AGE: 62 SEX: F : 04/03/1962 ARRIVES VIA: Ambulance INFORMANT: Patient, EMS report, neighbor ED PROVIDER(S): Conrado Hathaway MD CHIEF COMPLAINT: Fall, possible intoxication MEDICAL DECISION MAKING: Patient presents due to concern for intoxication and fall. Patient presented as a trauma alert. IV was established and blood work was obtained along with CT head cervical spine chest abdomen pelvis. Next Patient with any normal white count hemoglobin and platelet count. The patient's kidney function is unremarkable. Hypokalemia noted. Magnesium added and potassium 20 mEq ordered IV. Magnesium noted to be 1.6. This was ordered for replacement. AST ALT and alk phos elevated. Alcohol of greater than 500. Given these concerns do believe the patient would require admission for this alone. The patient's CTs negative CT head. Patient's chest x-ray is unremarkable. CT of the chest shows T4 T9 compression fractures. No traumatic injury to the aorta. Numerous subacute to chronic bilateral rib fractures. CT cervical spine shows irregularity anterior arch of C1 likely subacute to chronic fracture. CT abdomen pelvis shows simple fluid density lesion which may represent a cyst. Initially there were no scans which to compare this to as the patient had been placed under the wrong name and date of . After review when the other accounts were merged it is noted the patient did have this prior C1 anterior arch irregularity as well as the rib fractures and T4 and T9 compression fractures. As the trauma appears to be subacute did not acute traumatic the patient required a trauma insurance for. Patient eventually was clinically cleared with regard to her C-spine. Patient has no midline pain equal and appropriate apparel fashion designer strength no paresthesias the patient gives name correct date of current location and current year. I did speak the on- call hospital service Deborah Camilo PA-C and Dr. Ceballos. Patient did have the posterior aspect of her head cleaned up and this was repaired with johnathon. Last tetanus was in 2023. Patient was ordered 2 g of IV Ancef. I did convey this to the inpatient service. Procedures: Laceration repair performed Dr. Hathaway Location: Scalp Total length: 3 and half centimeter Complexity: Simple Verbal consent was obtained after the risks and benefits were explained, including but not limited to bleeding, scarring, infection, pain, and bone/nerve damage. At this time, the risks of the procedure are less than the risks of NOT performing the procedure. A time out was taken and the correct patient and site identified. The scalp was prepped with betadine. Copious irrigation was performed using saline. The skin was re-prepped with betadine, the hair cleared from the wound, and a sterile field set. The wound was explored for foreign bodies and none found. Debridement was not performed. The wound edges were approximated using 3 surgical johnathon in the standard fashion. Hemostasis and excellent approximation was achieved. Antibacterial ointment and a sterile dressing applied. Detailed wound care instructions and signs and symptoms of infection reviewed with the patient as well as the inpatient service. No complications and the patient tolerated the procedure well. Discussion w/ other healthcare providers: CHUCK Hayes Dr. patient medicine service Prior /Outside records reviewed: Last tetanus noted to be in February 2024. Differential diagnosis: Fracture, dislocation, contusion, strain, sprain, ICH, hemothorax, intra- abdominal injury, anemia among other causes were considered. Diagnostics, as interpreted by me: ECG: Likely sinus, rate of 89 with normal intervals and normal axis. Cardiac monitoring: An order was placed for continuous cardiac monitoring. The monitor shows a rate of 102 with tachycardic rhythm. Patient was placed on pulse oximetry Medical decision rules: None Imaging studies: I informally interpreted the patient's CT head does not show obvious ICH with formal report to follow. HPI: Patient presents due to concern for fall and head strike. There was report that the patient had been drinking raspberry rum. Patient had reportedly called a neighbor who found her down on the ground. They did notice that she has been bleeding to the back of her head but appear to be dry in nature. Patient states that she does live by herself and currently denies any pain. History is limited given the likely intoxication. Patient's neighbor did arrive. The patient had given the wrong prior birthdate. She had the year incorrect but the birthday was right. PAST MEDICAL HISTORY: See Below PAST SURGICAL HISTORY: See Below SOCIAL HISTORY: See Below HOME MEDICATIONS: See Below ALLERGIES: See Below VITALS: See Below PHYSICAL EXAMINATION: GENERAL: NAD, non-toxic. Wearing glasses. Clinically intoxicated. Head: Normocephalic, dried blood noted to the occiput no significant deformity noted. EYE EXAM: Normal conjunctiva. PERRL, no anisocoria and EOM's grossly intact w/o pain. OROPHARYNX: Moist mucus membranes, grossly normal dentition. NECK: Trachea midline, no stridor. Supple, no nuchal rigidity, no adenopathy, non-tender. No signs of meningismus. FROM of the neck with good chin to chest and neck extension. No midline C-spine TTP. LUNGS: Clear to auscultation. Normal chest wall mechanics. HEART: NSR, no MRG. ABDOMEN: Abdomen soft, non-tender, no masses, no rebound or guarding. BACK: No CVA TTP. Scattered bruising noted to the left upper back and flank area as well as left buttock. SKIN: No rashes and no bruising. UPPER EXTREMITIES: Upper extremities are grossly normal. No TTP or deformity. LOWER EXTREMITIES: Grossly normal, no edema. No TTP or deformity. Bruising as noted above. NEURO EXAM: A&O x3, cranial nerves II-XII grossly intact, slow deliberate speech, moves all 4 extremities. Past Med/Surg History Problem List (Updated 08/07/24 @ 16:32 by Conrado Hathaway MD) CHI (closed head injury) (Acute) Laceration of scalp (Acute) Upper GI bleed Suicidal ideation (Acute) Alcohol use (Acute) Alcohol intoxication (Acute) Alcoholic (Chronic) Transaminitis (Acute) Fall down stairs Compression fx, thoracic spine (Acute) Closed skull fracture (Acute) C1 cervical fracture (Acute) Hypokalemia (Acute) Alcohol intoxication (Acute) Fall (Acute) Trauma (Acute) Medical History Tobacco use disorder Alcohol abuse Social History Smoking Status: Unknown if ever smoked Tobacco Type: Cigarettes Do You Dip or Chew Tobacco: No; Hx Alcohol Use: Yes Alcohol type: beer and hard liquor Hx Substance Use: Yes Last Used Substance: Hours (ago) Preferred Language: Singaporean Communication Ability: Effective Rat Breeder Required: No Beliefs That Will Affect Care: None Current Living Situation: Alone Feels Safe at Home: Yes Assistive Devices: Cane and Walker Allergies Allergies Allergy/AdvReac Type Severity Reaction Status Date / Time Penicillins Allergy Intermediate Rash Verified 05/15/24 12:11 lactose Allergy Mild GI SYMPTOMS Verified 05/15/24 12:11 pollen extracts Allergy Mild Sneezing Verified 05/15/24 12:11 Home Meds Home Medications Medication Instructions Recorded Confirmed Calcium (Caltrate) 600 mg PO UD #0 tabs 03/29/16 08/07/24 acetaminophen 500 mg tablet 1,000 mg PO Q12H PRN Pain 02/18/24 08/07/24 folic acid 1 mg tablet 1 mg PO UD 03/19/24 08/07/24 ibuprofen 200 mg tablet 200 mg PO Q6H PRN Pain 03/19/24 08/07/24 thiamine HCl (vitamin B1) 100 mg PO UD 03/19/24 08/07/24 oxycodone 5 mg tablet 5 mg PO UD PRN severe pain (scale 08/07/24 08/07/24 score 7-10) Results & Data (ED) Vital Signs Vital Signs - 24 hr 08/07/24 12:37 08/07/24 12:43 08/07/24 12:43 Temperature 36.5 C 36.5 C Temperature Source Oral Pulse Rate 104 H Pulse Rate [Right Finger] Pulse Rate from SpO2 Sensor Pulse Strength [Carotid] Strong Respiratory Rate 12 Respiratory Effort / Characteristics Non-Labored Spontaneous Respiratory Depth Normal Respiratory Pattern Blood Pressure 120/90 122/96 Blood Pressure [Right Arm] Blood Pressure Mean 104 Blood Pressure Mean [Right Arm] Pulse Oximetry 98 96 96 Oxygen Delivery Method Room Air Room Air Room Air Oxygen Flow Rate 0 Sepsis Recent Fever Within 48 Hours No Sepsis New/Unexplained Change in Mental Status N/A Sepsis Action Taken by Nursing No Action Required 08/07/24 12:57 08/07/24 13:00 08/07/24 13:01 Temperature Temperature Source Pulse Rate 101 H Pulse Rate [Right Finger] Pulse Rate from SpO2 Sensor 104 H Pulse Strength [Carotid] Respiratory Rate 20 15 Respiratory Effort / Characteristics Non-Labored Respiratory Depth Normal Respiratory Pattern Blood Pressure 122/96 Blood Pressure [Right Arm] Blood Pressure Mean 109 Blood Pressure Mean [Right Arm] Pulse Oximetry 95 Oxygen Delivery Method Room Air Oxygen Flow Rate Sepsis Recent Fever Within 48 Hours Sepsis New/Unexplained Change in Mental Status Sepsis Action Taken by Nursing 08/07/24 13:01 08/07/24 13:01 08/07/24 13:01 Temperature Temperature Source Pulse Rate Pulse Rate [Right Finger] Pulse Rate from SpO2 Sensor Pulse Strength [Carotid] Respiratory Rate Respiratory Effort / Characteristics Respiratory Depth Respiratory Pattern Blood Pressure 122/96 122/96 122/96 Blood Pressure [Right Arm] Blood Pressure Mean 109 109 109 Blood Pressure Mean [Right Arm] Pulse Oximetry Oxygen Delivery Method Oxygen Flow Rate Sepsis Recent Fever Within 48 Hours Sepsis New/Unexplained Change in Mental Status Sepsis Action Taken by Nursing 08/07/24 13:06 08/07/24 13:08 08/07/24 13:09 Temperature Temperature Source Pulse Rate 86 Pulse Rate [Right Finger] 100 H Pulse Rate from SpO2 Sensor 86 Pulse Strength [Carotid] Respiratory Rate 16 14 Respiratory Effort / Characteristics Non-Labored Spontaneous Respiratory Depth Normal Respiratory Pattern Regular Blood Pressure 116/83 Blood Pressure [Right Arm] 116/83 Blood Pressure Mean 98 Blood Pressure Mean [Right Arm] 94 Pulse Oximetry 97 97 Oxygen Delivery Method Room Air Oxygen Flow Rate Sepsis Recent Fever Within 48 Hours Sepsis New/Unexplained Change in Mental Status Sepsis Action Taken by Nursing 08/07/24 13:12 08/07/24 13:52 08/07/24 13:53 Temperature Temperature Source Pulse Rate 111 H Pulse Rate [Right Finger] 98 H Pulse Rate from SpO2 Sensor 113 H Pulse Strength [Carotid] Respiratory Rate 19 24 Respiratory Effort / Characteristics Non-Labored Spontaneous Respiratory Depth Normal Respiratory Pattern Blood Pressure 99/63 L Blood Pressure [Right Arm] 99/63 L Blood Pressure Mean 70 Blood Pressure Mean [Right Arm] 75 Pulse Oximetry 99 93 Oxygen Delivery Method Room Air Oxygen Flow Rate Sepsis Recent Fever Within 48 Hours Sepsis New/Unexplained Change in Mental Status Sepsis Action Taken by Nursing 08/07/24 14:00 08/07/24 14:15 08/07/24 14:21 Temperature Temperature Source Pulse Rate 97 H 108 H 110 H Pulse Rate [Right Finger] Pulse Rate from SpO2 Sensor 97 H 104 H 113 H Pulse Strength [Carotid] Respiratory Rate 14 16 21 Respiratory Effort / Characteristics Respiratory Depth Respiratory Pattern Blood Pressure Blood Pressure [Right Arm] Blood Pressure Mean Blood Pressure Mean [Right Arm] Pulse Oximetry 93 97 95 Oxygen Delivery Method Oxygen Flow Rate Sepsis Recent Fever Within 48 Hours Sepsis New/Unexplained Change in Mental Status Sepsis Action Taken by Nursing 08/07/24 14:42 08/07/24 14:44 08/07/24 14:45 Temperature Temperature Source Pulse Rate 96 H Pulse Rate [Right Finger] 102 H Pulse Rate from SpO2 Sensor 96 H Pulse Strength [Carotid] Respiratory Rate 15 18 Respiratory Effort / Characteristics Non-Labored Spontaneous Respiratory Depth Normal Respiratory Pattern Regular Blood Pressure 96/60 L Blood Pressure [Right Arm] 96/60 L Blood Pressure Mean 85 Blood Pressure Mean [Right Arm] 72 Pulse Oximetry 97 96 Oxygen Delivery Method Room Air Oxygen Flow Rate Sepsis Recent Fever Within 48 Hours Sepsis New/Unexplained Change in Mental Status Sepsis Action Taken by Nursing 08/07/24 15:00 08/07/24 15:00 08/07/24 15:00 Temperature Temperature Source Pulse Rate 110 H Pulse Rate [Right Finger] Pulse Rate from SpO2 Sensor 109 H Pulse Strength [Carotid] Respiratory Rate 12 Respiratory Effort / Characteristics Respiratory Depth Respiratory Pattern Blood Pressure 107/79 107/79 Blood Pressure [Right Arm] Blood Pressure Mean 89 89 Blood Pressure Mean [Right Arm] Pulse Oximetry 95 Oxygen Delivery Method Oxygen Flow Rate Sepsis Recent Fever Within 48 Hours Sepsis New/Unexplained Change in Mental Status Sepsis Action Taken by Nursing 08/07/24 15:00 08/07/24 15:24 08/07/24 15:27 Temperature Temperature Source Pulse Rate 105 H 110 H Pulse Rate [Right Finger] Pulse Rate from SpO2 Sensor 105 H 109 H Pulse Strength [Carotid] Respiratory Rate 23 18 Respiratory Effort / Characteristics Respiratory Depth Respiratory Pattern Blood Pressure 107/79 Blood Pressure [Right Arm] Blood Pressure Mean 89 Blood Pressure Mean [Right Arm] Pulse Oximetry 95 92 Oxygen Delivery Method Oxygen Flow Rate Sepsis Recent Fever Within 48 Hours Sepsis New/Unexplained Change in Mental Status Sepsis Action Taken by Nursing 08/07/24 15:30 08/07/24 15:30 08/07/24 15:36 Temperature Temperature Source Pulse Rate 106 H Pulse Rate [Right Finger] Pulse Rate from SpO2 Sensor 105 H Pulse Strength [Carotid] Respiratory Rate 22 Respiratory Effort / Characteristics Respiratory Depth Respiratory Pattern Blood Pressure 99/79 L 99/79 L Blood Pressure [Right Arm] Blood Pressure Mean 81 81 Blood Pressure Mean [Right Arm] Pulse Oximetry 98 Oxygen Delivery Method Oxygen Flow Rate Sepsis Recent Fever Within 48 Hours Sepsis New/Unexplained Change in Mental Status Sepsis Action Taken by Nursing 08/07/24 15:43 08/07/24 15:45 08/07/24 15:55 Temperature Temperature Source Pulse Rate Pulse Rate [Right Finger] 116 H Pulse Rate from SpO2 Sensor Pulse Strength [Carotid] Respiratory Rate 16 Respiratory Effort / Characteristics Non-Labored Spontaneous Non-Labored Spontaneous Respiratory Depth Normal Normal Respiratory Pattern Blood Pressure 118/80 Blood Pressure [Right Arm] 118/80 Blood Pressure Mean 90 Blood Pressure Mean [Right Arm] 92 Pulse Oximetry 97 Oxygen Delivery Method Room Air Oxygen Flow Rate Sepsis Recent Fever Within 48 Hours Sepsis New/Unexplained Change in Mental Status Sepsis Action Taken by Nursing 08/07/24 16:00 08/07/24 16:00 08/07/24 16:00 Temperature Temperature Source Pulse Rate Pulse Rate [Right Finger] Pulse Rate from SpO2 Sensor Pulse Strength [Carotid] Respiratory Rate 15 Respiratory Effort / Characteristics Non-Labored Spontaneous Respiratory Depth Normal Respiratory Pattern Blood Pressure 115/83 115/83 Blood Pressure [Right Arm] Blood Pressure Mean 90 90 Blood Pressure Mean [Right Arm] Pulse Oximetry 97 Oxygen Delivery Method Room Air Oxygen Flow Rate Sepsis Recent Fever Within 48 Hours Sepsis New/Unexplained Change in Mental Status Sepsis Action Taken by Nursing 08/07/24 16:00 08/07/24 16:00 08/07/24 16:00 Temperature Temperature Source Pulse Rate 96 H Pulse Rate [Right Finger] Pulse Rate from SpO2 Sensor Pulse Strength [Carotid] Respiratory Rate 14 Respiratory Effort / Characteristics Respiratory Depth Respiratory Pattern Blood Pressure 115/83 115/83 Blood Pressure [Right Arm] Blood Pressure Mean 90 90 Blood Pressure Mean [Right Arm] Pulse Oximetry Oxygen Delivery Method Oxygen Flow Rate Sepsis Recent Fever Within 48 Hours Sepsis New/Unexplained Change in Mental Status Sepsis Action Taken by Nursing 08/07/24 16:12 08/07/24 16:21 Temperature Temperature Source Pulse Rate 88 106 H Pulse Rate [Right Finger] Pulse Rate from SpO2 Sensor 87 108 H Pulse Strength [Carotid] Respiratory Rate 13 17 Respiratory Effort / Characteristics Respiratory Depth Respiratory Pattern Blood Pressure Blood Pressure [Right Arm] Blood Pressure Mean Blood Pressure Mean [Right Arm] Pulse Oximetry 92 94 Oxygen Delivery Method Oxygen Flow Rate Sepsis Recent Fever Within 48 Hours Sepsis New/Unexplained Change in Mental Status Sepsis Action Taken by Correction Medications Current Medication List: was personally reviewed by me Laboratory Data Attestation: I reviewed the patient's lab results. 08/07/24 12:59 08/07/24 12:59 Lab Results 08/07/24 08/07/24 08/07/24 Range/Units 12:59 13:20 15:47 WBC 7.65 (4.8-10.8) K/ul RBC 3.71 L (4.20-5.40) M/uL Hgb 13.4 (12.0-16.0) g/dl POC Hgb 12.9 (12.0-16.0) g/dl Hct 38.4 (37.0-47.0) % POC Hct 38 (37-47) % MCV 103.5 H (80.0-100.0) fL MCH 36.1 H (25.0-34.0) pg MCHC 34.9 (32.0-36.0) g/dL RDW Std Deviation 50.4 H (36.4-46.3) fL RDW Coeff of Gio 13.2 (11.5-14.5) % Plt Count 385 (130-400) K/uL MPV 8.7 L (9.4-12.4) fL Immature Gran % (Auto) 0.5 % Neut % (Auto) 51.3 % Lymph % (Auto) 36.9 % [place] % (Auto) 8.8 % Eos % (Auto) 1.8 % Baso % (Auto) 0.7 % Neut # (Auto) 3.93 (1.40-6.50) K/uL Lymph # (Auto) 2.82 (1.20-3.40) K/uL [place] # (Auto) 0.67 H (0.11-0.59) K/uL Eos # (Auto) 0.14 (0.00-0.50) K/uL Baso # (Auto) 0.05 (0.00-0.20) K/uL Immature Gran # (Auto) 0.04 (0.01-0.20) K/uL PT 11.8 (9.0-12.0) Seconds INR 1.1 (0.9-1.1) APTT 24 (21-31) Seconds PTT Ratio 0.9 POC Sodium 142 (135-144) mmol/L Sodium 143 (136-145) mmol/L POC Potassium 2.6 L (3.3-5.0) mmol/L Potassium 3.0 L (3.5-5.1) mmol/L POC Chloride 97 L (101-112) mmol/L Chloride 97 L (98-107) mmol/L Carbon Dioxide 33 H (21-32) mmol/L POC Total CO2 33 H (24-31) mmol/L Anion Gap 13 H (3-11) POC Anion Gap 16.0 (16-25) mmol/L POC BUN < 3 L (7-18) mg/dl BUN 4 L (6-23) mg/dl Creatinine 0.40 L (0.6-1.2) mg/dl POC Creatinine 1.1 (0.6-1.3) mg/dl Est Cr Clr Drug Dosing 140.0 ml/min eGFR 113.24 BUN/Creatinine Ratio 10.0 (10-20) Glucose 80 (70-99(Fasting)) mg/dl POC Glucose (other) 87 (70-99) mg/dl Calcium 8.2 L (8.6-10.3) mg/dl POC Ioniz Calcium Zane 0.90 L (1.12-1.32) mmol/l Magnesium 1.6 L (1.7-2.4) mg/dl Total Bilirubin 0.9 (0.2-1.0) mg/dl AST 153 H (13-39) U/L ALT 55 H (7-52) U/L Alkaline Phosphatase 220 H (34-104) U/L Total Creatine Kinase 51 (26-192) U/L Total Protein 6.2 (6.0-8.3) gm/dl Albumin 3.2 L (3.4-5.0) gm/dl Globulin 3.0 (2.5-4.0) gm/dl Albumin/Globulin Ratio 1.1 (0.9-2) Lipase 33 (11-82) U/L Urine Color Yellow Urine Appearance Clear (Clear) Urine pH 5.5 (4.5-7.5) Ur Specific [place] 1.044 H (1.000-1.030) Urine Protein Trace H (Negative) Urine Glucose (UA) Negative (Negative) Urine Ketones Negative (Negative) Urine Blood Negative (Negative) Urine Nitrite Negative (Negative) Urine Bilirubin Negative (Negative) Urine Urobilinogen Negative (Negative) Ur Leukocyte Esterase Negative (Negative) Urine WBC (Auto) 0-5 (0-5) /hpf Urine RBC (Auto) 0-2 (0-2) /hpf U Hyaline Cast (Auto) 6-10 H (0-2) /lpf U Epithel Cells (Auto) 11-20 H (0-2) /hpf Urine Bacteria (Auto) 2+ H (None Seen) Ethyl Alcohol mg/dL 513.8 H (<10.0) mg/dl Administered Medications Discontinued Medications Sodium Chloride (Nss) 1,000 mls @ 999 mls/hr IV .Q1H1M LESVIA Stop: 08/07/24 14:15 Last Admin: 08/07/24 14:08 Dose: 999 mls/hr Documented By: SHEY Potassium Chloride (K Juan / Wtr) 10 meq in 100 mls @ 100 mls/hr IV Q1H LESVIA Stop: 08/07/24 16:29 Last Infusion: 08/07/24 16:35 Dose: Infused Documented By: Admin: 08/07/24 15:35 Dose: 100 mls/hr Documented By: Infusion: 08/07/24 15:35 Dose: Infused Documented By: Admin: 08/07/24 14:38 Dose: 100 mls/hr Documented By: SHEY Thiamine HCl 100 mg/ Syringe 10 mls @ 2 mls/min IV NOW ONE Stop: 08/07/24 16:15 Last Admin: 08/07/24 16:36 Dose: 2 mls/min Documented By: LORIE Ioversol (Optiray 320 100ml) 93 ml IV ONCE ONE Stop: 08/07/24 13:43 Last Admin: 08/07/24 13:42 Dose: 93 ml Documented By: ELICIA Imaging Data Radiologist's Impression: Abdomen/Pelvis CT 08/07/24 13:03 CT abd pelvis IV con only CLINICAL HISTORY: Trauma TECHNIQUE: Helical axial images of the abdomen and pelvis were obtained and displayed. Automated dose lowering techniques and/or adjustment according to patient size were utilized for this exam. This exam was performed with intravenous contrast. COMPARISON: Comparison is made to FINDINGS: Lower chest: No acute abnormality. Liver: Hepatic steatosis is noted. Gallbladder and biliary tree: No calcified gallstones. Normal caliber wall. No intra- or extrahepatic biliary ductal dilation. Pancreas: Unremarkable, no focal lesions. Spleen: Unremarkable. Adrenals: Unremarkable. Kidneys and ureters: Nonobstructive nephrolithiasis is seen. Bladder: Unremarkable. Reproductive organs: Right ovary ovarian cyst is seen. Bowel: The appendix is normal. There is a small hiatal hernia. Lymph nodes Retroperitoneal: Unremarkable. Pelvic: Unremarkable. Mesenteric: Unremarkable. Peritoneum: There is a 8mm lesion measuring greater than simple fluid density anterosuperior to the right kidney. Vessels: Atherosclerotic calcifications are seen. Abdominal wall: Unremarkable. Bones: Partial visualization of a subacute appearing rib fracture is better seen on CT chest. T9 compression deformity is also partly visualized. IMPRESSION: 1. No acute abnormalities and in particular no evidence of acute fractures. 2. Hepatic steatosis. 3. A simple fluid density lesion anterosuperior to the right kidney, which may possibly represent a highly exophytic hemorrhagic/proteinaceous cyst. ACT 112: Negative or not required by law. Electronically signed by: Jonathan Hayden M.D. 08/07/2024 2:[address] 08/07/24 13:03 CT cervical spine wo con CLINICAL HISTORY: Trauma TECHNIQUE: Multidetector row helical CT of the cervical spine was performed without administration of intravenous contrast. Coronal and sagittal reformations were obtained. Automated dose lowering techniques and/or adjustment according to patient size were utilized for this exam. Comparison: None available at the time of this dictation. FINDINGS: No acute fractures or subluxations are identified. Degenerative changes are seen in the visualized spine. Irregularity of the anterior arch of C1 is compatible with subacute to chronic fracture. The alignment is normal. Soft tissues are unremarkable. IMPRESSION: Irregularity of the anterior arch of C1 is seen compatible with subacute to chronic fracture. Clinical correlation is recommended to exclude any acute component of fracture. ACT 112: Negative or not required by law. Electronically signed by: Jonathan Hayden M.D. 08/07/2024 2:[address] 08/07/24 13:03 CT OF THE CHEST WITH IV CONTRAST CLINICAL HISTORY: Trauma COMPARISON STUDY: No previous studies for comparison. TECHNIQUE: Following IV administration of 93 mL of Optiray, helical axial images of the chest were obtained. Sagittal and coronal reconstructions were viewed as well as maximal intensity projections on an independent 3-D workstation. Automated exposure control was utilized for the study. A dose lowering technique was utilized adhering to the principles of ALARA. FINDINGS: There is no evidence for traumatic injury to the thoracic aorta. The size of the heart is normal. There is a small hiatal hernia. No pericardial effusion is present. There is no pneumothorax or pleural effusion. Linear densities within the lungs favor scarring or atelectasis. There is no pulmonary contusion. There are no suspicious pulmonary nodules. Multiple small sclerotic foci within the spine and several ribs statistically represent bone islands. There is slight loss of height of the superior endplate of T4. There is mild loss of height of the superior endplate of T9. A subtle fracture line is noted with mild sclerosis. There is no significant retropulsion. No extension into the posterior elements is present. Numerous subacute to chronic bilateral rib fractures are present. No acute rib fractures are identified. This exam is mildly compromised by motion artifact. There is severe hepatic steatosis. The abdomen and pelvis CT will be reported separately. IMPRESSION: 1. No evidence for traumatic injury to the thoracic aorta. 2. T4 and T9 compression fractures, as described above. Mild loss of height of the superior endplate of T9 and minimal loss of height of the superior endplate of T4. These fractures are age indeterminate although favor subacute. 3. Numerous subacute to chronic bilateral rib fractures. No acute rib fractures. No pneumothorax. 3. Severe hepatic steatosis. ACT 112: Negative or not required by law. Electronically signed by: Agustin Carrero M.D. 08/07/2024 2:08 PM Chest X-Ray 08/07/24 13:03 XR chest 1V portable CLINICAL HISTORY: Trauma TECHNIQUE: Single frontal radiograph of the chest was obtained. Comparison: None available at the time of this dictation. FINDINGS: No lines and tubes are seen. The cardiomediastinal silhouette is normal. The lungs are clear. No evidence of pleural effusion or pneumothorax. IMPRESSION: No acute chest disease. ACT 112: Negative or not required by law. Electronically signed by: Jonathan Hayden M.D. 08/07/2024 2:[address] 08/07/24 13:03 CT head/brain wo con CLINICAL HISTORY: trauma Technique: Contiguous axial CT images of the head were acquired from the base of the skull to the vertex without intravenous contrast administration. Images were viewed in brain, subdural and bone windows. Automated dose lowering techniques and/or adjustment according to patient size were utilized for this exam. Comparison: None available at the time of this dictation. Findings: Areas of decreased attenuation are present in the periventricular and subcortical white matter bilaterally consistent with small vessel ischemic disease. Generalized cerebral atrophy with commensurate enlargement of the ventricles, sulci, and cisterns is also present. There is no acute intracranial hemorrhage or evidence of acute territorial infarction. No shift of the midline structures, mass effect, or extra-axial abnormalities are shown. Atherosclerotic calcifications are present in the intracranial segments of the internal carotid arteries. Imaged portions of the paranasal sinuses and mastoid air cells are clear. The orbits appear normal. There are no acute fractures of the calvaria or scalp swelling. Impression: No acute intracranial hemorrhage, no evidence of acute territorial infarction or other acute intracranial disease process. ACT 112: Negative or not required by law. Electronically signed by: Jonathan Hayden M.D. 08/07/2024 2:25 PM Discharge Plan Visit Data Chief Complaint: Trauma Stated Complaint: TRAUMA ALERT, FALL, HIT HEAD, ALCOHOL INTOX ED Provider: Conrado Hathaway Discharge Problem: Alcohol intoxication, Hypokalemia, Transaminitis, Alcoholic, Fall, Laceration of scalp, CHI (closed head injury) Forms Stand Alone Forms: [facility] Prescriptions Prescriptions: No Action Calcium (Caltrate) 600 MG tablet 600 mg PO UD Qty: 0 Rx Instructions: 600 mg po daily. otc unable to verify acetaminophen 500 mg Tablet 1,000 mg PO Q12H PRN (Reason: Pain) Rx Instructions: otc unable to verify ibuprofen 200 mg Tablet 200 mg PO Q6H PRN (Reason: Pain) Rx Instructions: otc unable to verify folic acid 1 mg tablet 1 mg PO UD Rx Instructions: 1 mg po daily. last filled 04/13/24 60 day supply thiamine HCl (vitamin B1) 100 mg tablet 100 mg PO UD Rx Instructions: 100 mg po daily otc unable to verify oxycodone 5 mg tablet 5 mg PO UD PRN (Reason: severe pain (scale score 7-10)) Rx Instructions: 5 mg po q6h prn. last filled 02/22/24 5 day supply Referrals Referrals: PCP,NO [Primary Care Provider] - Discharge Problem: Alcohol intoxication Qualifiers: Complication of substance-induced condition: uncomplicated Qualified Code(s): F 10.920 - Alcohol use, unspecified with intoxication, uncomplicated Fall Qualifiers: Encounter type: initial encounter Qualified Code(s): W19.XXXA - Unspecified fall, initial encounter Laceration of scalp Qualifiers: Encounter type: initial encounter Qualified Code(s): S01.01XA - Laceration without foreign body of scalp, initial encounter CHI (closed head injury) Qualifiers: Encounter type: initial encounter Qualified Code(s): S09.90XA - Unspecified injury of head, initial encounter
[2024-08-07 13:25] LABS: Basophils # (auto) 0.05 K/uL (0.00-0.20); Basophils % (auto) 0.7 %; Eosinophils # (auto) 0.14 K/uL (0.00-0.50); Eosinophils % (auto) 1.8 %; Hematocrit (blood only) 38.4 % (37.0-47.0); Hemoglobin 13.4 g/dl (12.0-16.0); Immature Granulocytes # (auto) 0.04 K/uL (0.01-0.20); Immature Granulocytes % (auto) 0.5 %; Lymphocytes # (auto) 2.82 K/uL (1.20-3.40); Lymphocytes % (auto) 36.9 %; Mean Corpuscular Hemoglobin 36.1 pg (25.0-34.0); Mean Corpuscular Hgb Conc 34.9 g/dL (32.0-36.0); Mean Corpuscular Volume 103.5 fL (80.0-100.0); Mean Platelet Volume 8.7 fL (9.4-12.4); Monocytes # (auto) 0.67 K/uL (0.11-0.59); Monocytes % (auto) 8.8 %; Neutrophils # (auto) 3.93 K/uL (1.40-6.50); Neutrophils % (auto) 51.3 %; Platelet Count 385 K/uL (130-400); RDW Coefficient of Variation 13.2 % (11.5-14.5); RDW Standard Deviation 50.4 fL (36.4-46.3); Red Blood Count 3.71 M/uL (4.20-5.40); White Blood Count 7.65 K/ul (4.8-10.8)
[2024-08-07 13:34] LABS: iSTAT Blood Urea Nitrogen < 3 mg/dl (7-18); iSTAT Carbon Dioxide 33 mmol/L (24-31); iSTAT Chloride 97 mmol/L (101-112); iSTAT Creatinine 1.1 mg/dl (0.6-1.3); iSTAT Glucose 87 mg/dl (70-99); iSTAT Hematocrit 38 % (37-47); iSTAT Hemoglobin 12.9 g/dl (12.0-16.0); iSTAT Potassium 2.6 mmol/L (3.3-5.0); iSTAT Sodium 142 mmol/L (135-144)
[2024-08-07] MEDS: OPTIRAY 320 100ml IV ONE (13:42)
[2024-08-07 13:52] LABS: Albumin Globulin Ratio 1.1 (0.9-2); Albumin Level 3.2 gm/dl (3.4-5.0); Bilirubin,Total 0.9 mg/dl (0.2-1.0); Calcium 8.2 mg/dl (8.6-10.3); INR 1.1 (0.9-1.1); Partial Thromboplastin Ratio 0.9; Partial Thromboplastin Time 24 Seconds (21-31); Prothrombin Time 11.8 Seconds (9.0-12.0); Total Protein 6.2 gm/dl (6.0-8.3)
[2024-08-07] MEDS: SODIUM CHLORIDE 0.9% 1,000 ML IV SCH (14:08)
--- NOTE | 2024-08-07 14:09 | CT Scan Report ---
CT OF THE CHEST WITH IV CONTRAST CLINICAL HISTORY: Trauma COMPARISON STUDY: No previous studies for comparison. TECHNIQUE: Following IV administration of 93 mL of Optiray, helical axial images of the chest were o btained. Sagittal and coronal reconstructions were viewed as well as maximal intensity projections o n an independent 3-D workstation. Automated exposure control was utilized for the study. A dose low ering technique was utilized adhering to the principles of ALARA. FINDINGS: There is no evidence for traumatic injury to the thoracic aorta. The size of the heart is normal. There is a small hiatal hernia. No pericardial effusion is present. There is no pneumothorax or pleural effusion. Linear densities within the lungs favor scarring or atelectasis. There is no pul monary contusion. There are no suspicious pulmonary nodules. Multiple small sclerotic foci within the spine and several ribs statistically represent bone islands. There is slight loss of height of the s uperior endplate of T4. There is mild loss of height of the superior endplate of T9. A subtle fractur e line is noted with mild sclerosis. There is no significant retropulsion. No extension into the post erior elements is present. Numerous subacute to chronic bilateral rib fractures are present. No acute rib fractures are identified. This exam is mildly compromised by motion artifact. There is severe he patic steatosis. The abdomen and pelvis CT will be reported separately. IMPRESSION: 1. No evidence for traumatic injury to the thoracic aorta. 2. T4 and T9 compression fractures, as described above. Mild loss of height of the superior endplate of T9 and minimal loss of height of the superior endplate of T4. These fractures are age indeterminat e although favor subacute. 3. Numerous subacute to chronic bilateral rib fractures. No acute rib fractures. No pneumothorax. 3. Severe hepatic steatosis. ACT 112: Negative or not required by law. Electronically signed by: Agustin Carrero M.D. 08/07/2024 2:08 PM
--- NOTE | 2024-08-07 14:14 | CT Scan Report ---
CT cervical spine wo con CLINICAL HISTORY: Trauma TECHNIQUE: Multidetector row helical CT of the cervical spine was performed without administration of intravenous contrast. Coronal and sagittal reformations were obtained. Automated dose lowering techn iques and/or adjustment according to patient size were utilized for this exam. Comparison: None available at the time of this dictation. FINDINGS: No acute fractures or subluxations are identified. Degenerative changes are seen in the visualized sp ine. Irregularity of the anterior arch of C1 is compatible with subacute to chronic fracture. The ali gnment is normal. Soft tissues are unremarkable. IMPRESSION: Irregularity of the anterior arch of C1 is seen compatible with subacute to chronic fracture. Clinica l correlation is recommended to exclude any acute component of fracture. ACT 112: Negative or not required by law. Electronically signed by: Jonathan Hayden M.D. 08/07/2024 2:13 PM
--- NOTE | 2024-08-07 14:27 | CT Scan Report ---
CT head/brain wo con CLINICAL HISTORY: trauma Technique: Contiguous axial CT images of the head were acquired from the base of the skull to the yelitza rafael without intravenous contrast administration. Images were viewed in brain, subdural and bone [facility]. Automated dose lowering techniques and/or adjustment according to patient size were utilized for this exam. Comparison: None available at the time of this dictation. Findings: Areas of decreased attenuation are present in the periventricular and subcortical white matter bilate rally consistent with small vessel ischemic disease. Generalized cerebral atrophy with commensurate e nlargement of the ventricles, sulci, and cisterns is also present. There is no acute intracranial hem orrhage or evidence of acute territorial infarction. No shift of the midline structures, mass effect, or extra-axial abnormalities are shown. Atherosclerotic calcifications are present in the intracran ial segments of the internal carotid arteries. Imaged portions of the paranasal sinuses and mastoid air cells are clear. The orbits appear normal. There are no acute fractures of the calvaria or scalp swelling. Impression: No acute intracranial hemorrhage, no evidence of acute territorial infarction or other acute intracra nial disease process. ACT 112: Negative or not required by law. Electronically signed by: Jonathan Hayden M.D. 08/07/2024 2:25 PM
--- NOTE | 2024-08-07 14:29 | XRay Report ---
XR chest 1V portable CLINICAL HISTORY: Trauma TECHNIQUE: Single frontal radiograph of the chest was obtained. Comparison: None available at the time of this dictation. FINDINGS: No lines and tubes are seen. The cardiomediastinal silhouette is normal. The lungs are clear. No evid ence of pleural effusion or pneumothorax. IMPRESSION: No acute chest disease. ACT 112: Negative or not required by law. Electronically signed by: Jonathan Hayden M.D. 08/07/2024 2:27 PM
[2024-08-07] MEDS: POTASSIUM CHLORIDE / WTR 10 MEQ/100 ML PLCT IV SCH (14:38)
--- NOTE | 2024-08-07 14:38 | CT Scan Report ---
CT abd pelvis IV con only CLINICAL HISTORY: Trauma TECHNIQUE: Helical axial images of the abdomen and pelvis were obtained and displayed. Automated dose lowering techniques and/or adjustment according to patient size were utilized for this exam. This e xam was performed with intravenous contrast. COMPARISON: Comparison is made to FINDINGS: Lower chest: No acute abnormality. Liver: Hepatic steatosis is noted. Gallbladder and biliary tree: No calcified gallstones. Normal caliber wall. No intra- or extrahepatic biliary ductal dilation. Pancreas: Unremarkable, no focal lesions. Spleen: Unremarkable. Adrenals: Unremarkable. Kidneys and ureters: Nonobstructive nephrolithiasis is seen. Bladder: Unremarkable. Reproductive organs: Right ovary ovarian cyst is seen. Bowel: The appendix is normal. There is a small hiatal hernia. Lymph nodes Retroperitoneal: Unremarkable. Pelvic: Unremarkable. Mesenteric: Unremarkable. Peritoneum: There is a 8mm lesion measuring greater than simple fluid density anterosuperior to the r ight kidney. Vessels: Atherosclerotic calcifications are seen. Abdominal wall: Unremarkable. Bones: Partial visualization of a subacute appearing rib fracture is better seen on CT chest. T9 comp ression deformity is also partly visualized. IMPRESSION: 1. No acute abnormalities and in particular no evidence of acute fractures. 2. Hepatic steatosis. 3. A simple fluid density lesion anterosuperior to the right kidney, which may possibly represent a highly exophytic hemorrhagic/proteinaceous cyst. ACT 112: Negative or not required by law. Electronically signed by: Jonathan Hayden M.D. 08/07/2024 2:37 PM
[2024-08-07] MEDS ORDERED: LORazepam 2 MG/1 ML VIAL IV PRN (14:41)
[2024-08-07 14:44] LABS: Magnesium 1.6 mg/dl (1.7-2.4)
--- NOTE | 2024-08-07 15:07 | History & Physical Report ---
Date of Service August 07, 2024 Assessment & Plan (1) Alcohol intoxication: (2) Fall: Plan: #Scalp laceration #Chronic C1 fx from 02/2024 #Chronic T4/T9 compression fx from 02/2024 Patient is 59 year old female with PMH ETOH abuse, essential tremor, tobacco use disorder, severe hepatic steatosis presented to ER with c/o fall today. In ER P: 100, R: 14, BP: 116/83, 97% on room air ETOH: 513 Urine drug screen pending CT Head: No acute intracranial hemorrhage, no evidence of acute territorial infarction or other acute intracranial disease process. CT C-spine: Irregularity of the anterior arch of C1 is seen compatible with subacute to chronic fracture. Clinical correlation is recommended to exclude any acute component of fracture. CT Chest: No evidence for traumatic injury to the thoracic aorta. T4 and T9 compression fractures, as described above. Mild loss of height of the superior endplate of T9 and minimal loss of height of the superior endplate of T4. These fractures are age indeterminate although favor subacute. Numerous subacute to chronic bilateral rib fractures. No acute rib fractures. No pneumothorax. Severe hepatic steatosis. CT Abd/pelvis: No acute abnormalities and in particular no evidence of acute fractures. Hepatic steatosis. A simple fluid density lesion anterosuperior to the right kidney, which may possibly represent a highly exophytic hemorrhagic/proteinaceous cyst. Patient c-spine cleared and c-collar was removed by ER physician Patient with chronic C1 fracture, chronic thoracic compression fractures, chronic rib fractures from prior fall in 02/2024. Does not appear to have any new fractures today Scalp laceration stapled in ER ETOH withdrawal protocol with gabapentin, ativan prn CBC, CMP, magnesium, phosphorus labs in am Daily multivitamin, thiamine and folic acid ETOH cessation recommended #Abnormal CT abd/pelvis: A simple fluid density lesion anterosuperior to the right kidney, which may possibly represent a highly exophytic hemorrhagic/proteinaceous cyst. Will need follow up (3) Hypokalemia: Plan: K: 3.0 In ER given 1L NSS, 2K riders Replace and monitor (4) Hypomagnesemia: Plan: Magnesium: 1.6 Replace and monitor (5) Transaminitis: Plan: #Hepatitic steatosis T bili: 0.9, AST: 153, ALT: 55, Alk Phos: 220. Chronically elevated and appear new baseline CMP in am DVT Prophylaxis SCDs for now Admit PCU Full Code as per discussion with pt Follows with Dr Tawanna Hendricks for routine care Pt was seen and care coordinated with Dr Ceballos. See addendum I spent a total of 80 minutes reviewing notes, outpatient records, labs, medication, coordinating, documenting and providing care for this patient excluding time spent in the performance of separately billed services. History of Present Illness Chief Complaint: Found on floor Primary Care Provider: Dr Tawanna Hendricks Patient is 59 year old female with PMH ETOH abuse, essential tremor, tobacco use disorder, severe hepatic steatosis presented to ER with c/o fall today. History obtained from patient and patient's neighbor. Patient's neighbor reports he received a call from patient today at 10:55 AM stating that she fell and could not get up. Neighbor presented to patient's apartment and found patient and phone on floor in the living room. Neighbor reports found blood in patient's kitchen and bedroom. He had noticed blood to back of patient's head. Patient appeared to be intoxicated and he found a 1.5L bottle of liquor in her kitchen that was almost empty. Neighbor reports talks to patient several times a week, and is aware that she drinks alcohol but states often when he talks to her she does not seem overly intoxicated and is able to carry on a conversation. He does state patient with known history of intoxication and falls in past. In ER patient presented and appeared intoxicated and limited history obtained. Upon my evaluation patient awake and states last thing she remembers is being on floor and calling her neighbor. She complains of back of head hurting. Denies neck pain, back pain, CP, SOB, upper extremity pain, lower extremity pain. Patient states last drink ETOH this morning. She is unwilling to state how much she drinks. She states walks with use of walker. Denies known fever/chills, N/V/D/C, [place], dizziness, cough, abdominal pain, paresthesias, extremity weakness, extremity edema, rashes, urinary symptoms. History tetanus booster in 02/2024. Patient previously presented to the [facility] ED on 02/18/24 for evaluation after sustaining a fall down steps. Patient was noted to have the following trauma- related injuries at that time: distal L clavicular fx, T4/T9 compression fx, S3 nondisplaced fx, C1 fx, occipital condyle fx, multiple L-sided rib fx's, nasal fx, right lamina papyracea fx and right inferior orbital wall fx, R mandibular dislocation. She was admitted at [facility] from 02/17 to 02/21. She did not undergo any surgical interventions. Per chart review: 02/18/2024: CTA Neck: IMPRESSION 1. No vascular injury is seen in the neck. 2. Multiple acute facial fractures are present. 02/19/2024 MRI C-Spine W/O contrast: IMPRESSION 1. Redemonstrated fractures of bilateral anterior arch and anterior lateral mass of C1. 2. Known Johan Matteo type 3 left occipital condyle fracture with avulsion of the left alar ligament. 3. Anterior annulus/anterior longitudinal ligament injury at C6-7 and/or anterior corner fracture. 4. No high-grade canal stenosis, cord compression, or evidence of cord contusion. Allergies Allergy/AdvReac Type Severity Reaction Status Date / Time Penicillins Allergy Intermediate Rash Verified 05/15/24 12:11 lactose Allergy Mild GI SYMPTOMS Verified 05/15/24 12:11 pollen extracts Allergy Mild Sneezing Verified 05/15/24 12:11 Home Medications Medication Instructions Recorded Confirmed Type Calcium (Caltrate) 600 mg PO UD #0 tabs 03/29/16 08/07/24 History acetaminophen 500 mg tablet 1,000 mg PO Q12H PRN Pain 02/18/24 08/07/24 History folic acid 1 mg tablet 1 mg PO UD 03/19/24 08/07/24 History ibuprofen 200 mg tablet 200 mg PO Q6H PRN Pain 03/19/24 08/07/24 History thiamine HCl (vitamin B1) 100 mg PO UD 03/19/24 08/07/24 History oxycodone 5 mg tablet 5 mg PO UD PRN severe pain (scale 08/07/24 08/07/24 History score 7-10) Past Med/Surg History Problem List CHI (closed head injury) (Acute) Laceration of scalp (Acute) Upper GI bleed Suicidal ideation (Acute) Alcohol use (Acute) Alcohol intoxication (Acute) Alcoholic (Chronic) Transaminitis (Acute) Fall down stairs Compression fx, thoracic spine (Acute) Closed skull fracture (Acute) C1 cervical fracture (Acute) Hypokalemia (Acute) Alcohol intoxication (Acute) Fall (Acute) Trauma (Acute) Medical History Tobacco use disorder Alcohol abuse Social History Smoking Status: Never smoker Tobacco Type: Cigarettes Second Hand Exposure: No; Do You Dip or Chew Tobacco: No; Tobacco Cessation Education Requested by Patient: No Hx Alcohol Use: Yes Alcohol type: hard liquor Hx Substance Use: No Preferred Language: [place]al[place] Communication Ability: Effective Florist Helper Required: No Beliefs That Will Affect Care: None Current Living Situation: Alone Other Information That Helps Us Care for You: No Feels Safe at Home: Yes Safety Concerns: Feels Safe At This Time Assistive Devices: None Review of Systems Review of Systems: All systems reviewed & are unremarkable except as noted in HPI & below Physical Exam Physical Exam: General: no distress, WDWN Head: normocephalic, +laceration posterior scalp Eyes: PERRL, EOM's intact, conjunctiva non-injected, anicteric ENT: normal inspection external ears, nose, mucous membranes mildly dry, +ETOH odor on breath Neck: supple, trachea midline, non-tender to palpation Lungs: clear, no respiratory distress, no wheezing/rhonchi/rales CV: regular rhythm, rate 102, no pretibial edema Abd: normal BS, soft, non-tender Ext: no cyanosis, no calf tenderness, active ROM intact to bilateral upper and lower extremities, packer denture strength strong and equal bilaterally Neuro: Alert, oriented to person, place, slow speech, follows commands, no other focal deficits noted, normal affect Skin: warm, dry, +ecchymosis to upper and lower extremities, upper back, and buttocks. +erythema noted to perineum and buttocks Results & Data Results & Data Vital Signs (Past 12 Hours) Vital Signs Temp Pulse Pulse Resp BP BP Pulse Ox 08/07/24 14:45 102 H 18 96/60 L 96 08/07/24 13:53 98 H 24 99/63 L 93 08/07/24 13:09 100 H 14 116/83 97 08/07/24 12:57 20 08/07/24 12:43 96 08/07/24 12:43 36.5 C 122/96 96 08/07/24 12:37 36.5 C 104 H 12 120/90 98 O2 Del Method O2 Flow Rate 08/07/24 14:45 Room Air 08/07/24 13:53 Room Air 08/07/24 13:09 Room Air 08/07/24 12:57 Room Air 08/07/24 12:43 Room Air 08/07/24 12:43 Room Air 08/07/24 12:37 Room Air 0 Laboratory Results Short CBC 08/07/24 Range/Units 12:59 WBC 7.65 (4.8-10.8) K/ul Hgb 13.4 (12.0-16.0) g/dl Hct 38.4 (37.0-47.0) % Plt Count 385 (130-400) K/uL BMP 08/07/24 12:59 Sodium 143 Potassium 3.0 L Chloride 97 L Carbon Dioxide 33 H BUN 4 L Creatinine 0.40 L Glucose 80 Calcium 8.2 L Cardiac Enzymes 08/07/24 Range/Units 12:59 Total Creatine Kinase 51 (26-192) U/L Liver Function 08/07/24 Range/Units 12:59 Total Bilirubin 0.9 (0.2-1.0) mg/dl AST 153 H (13-39) U/L ALT 55 H (7-52) U/L Alkaline Phosphatase 220 H (34-104) U/L Albumin 3.2 L (3.4-5.0) gm/dl Urine 08/07/24 Range/Units 15:47 Urine Color Yellow Urine Appearance Clear (Clear) Urine pH 5.5 (4.5-7.5) Ur Specific [place] 1.044 H (1.000-1.030) Urine Protein Trace H (Negative) Urine Glucose (UA) Negative (Negative) Diagnostic Findings Abdomen/Pelvis CT 08/07/24 13:03 CT abd pelvis IV con only CLINICAL HISTORY: Trauma TECHNIQUE: Helical axial images of the abdomen and pelvis were obtained and displayed. Automated dose lowering techniques and/or adjustment according to patient size were utilized for this exam. This exam was performed with intravenous contrast. COMPARISON: Comparison is made to FINDINGS: Lower chest: No acute abnormality. Liver: Hepatic steatosis is noted. Gallbladder and biliary tree: No calcified gallstones. Normal caliber wall. No intra- or extrahepatic biliary ductal dilation. Pancreas: Unremarkable, no focal lesions. Spleen: Unremarkable. Adrenals: Unremarkable. Kidneys and ureters: Nonobstructive nephrolithiasis is seen. Bladder: Unremarkable. Reproductive organs: Right ovary ovarian cyst is seen. Bowel: The appendix is normal. There is a small hiatal hernia. Lymph nodes Retroperitoneal: Unremarkable. Pelvic: Unremarkable. Mesenteric: Unremarkable. Peritoneum: There is a 8mm lesion measuring greater than simple fluid density anterosuperior to the right kidney. Vessels: Atherosclerotic calcifications are seen. Abdominal wall: Unremarkable. Bones: Partial visualization of a subacute appearing rib fracture is better seen on CT chest. T9 compression deformity is also partly visualized. IMPRESSION: 1. No acute abnormalities and in particular no evidence of acute fractures. 2. Hepatic steatosis. 3. A simple fluid density lesion anterosuperior to the right kidney, which may possibly represent a highly exophytic hemorrhagic/proteinaceous cyst. ACT 112: Negative or not required by law. Electronically signed by: Jonathan Hayden M.D. 08/07/2024 2:[address] 08/07/24 13:03 CT cervical spine wo con CLINICAL HISTORY: Trauma TECHNIQUE: Multidetector row helical CT of the cervical spine was performed without administration of intravenous contrast. Coronal and sagittal reformations were obtained. Automated dose lowering techniques and/or adjustment according to patient size were utilized for this exam. Comparison: None available at the time of this dictation. FINDINGS: No acute fractures or subluxations are identified. Degenerative changes are seen in the visualized spine. Irregularity of the anterior arch of C1 is compatible with subacute to chronic fracture. The alignment is normal. Soft tissues are unremarkable. IMPRESSION: Irregularity of the anterior arch of C1 is seen compatible with subacute to c hronic fracture. Clinical correlation is recommended to exclude any acute component of fracture. ACT 112: Negative or not required by law. Electronically signed by: Jonathan Hayden M.D. 08/07/2024 2:[address] 08/07/24 13:03 CT OF THE CHEST WITH IV CONTRAST CLINICAL HISTORY: Trauma COMPARISON STUDY: No previous studies for comparison. TECHNIQUE: Following IV administration of 93 mL of Optiray, helical axial images of the chest were obtained. Sagittal and coronal reconstructions were viewed as well as maximal intensity projections on an independent 3-D workstation. Automated exposure control was utilized for the study. A dose lowering technique was utilized adhering to the principles of ALARA. FINDINGS: There is no evidence for traumatic injury to the thoracic aorta. The size of the heart is normal. There is a small hiatal hernia. No pericardial effusion is present. There is no pneumothorax or pleural effusion. Linear densities within the lungs favor scarring or atelectasis. There is no pulmonary contusion. There are no suspicious pulmonary nodules. Multiple small sclerotic foci within the spine and several ribs statistically represent bone islands. There is slight loss of height of the superior endplate of T4. There is mild loss of height of the superior endplate of T9. A subtle fracture line is noted with mild sclerosis. There is no significant retropulsion. No extension into the posterior elements is present. Numerous subacute to chronic bilateral rib fractures are present. No acute rib fractures are identified. This exam is mildly compromised by motion artifact. There is severe hepatic steatosis. The abdomen and pelvis CT will be reported separately. IMPRESSION: 1. No evidence for traumatic injury to the thoracic aorta. 2. T4 and T9 compression fractures, as described above. Mild loss of height of the superior endplate of T9 and minimal loss of height of the superior endplate of T4. These fractures are age indeterminate although favor subacute. 3. Numerous subacute to chronic bilateral rib fractures. No acute rib fractures. No pneumothorax. 3. Severe hepatic steatosis. ACT 112: Negative or not required by law. Electronically signed by: Agustin Carrero M.D. 08/07/2024 2:08 PM Chest X-Ray 08/07/24 13:03 XR chest 1V portable CLINICAL HISTORY: Trauma TECHNIQUE: Single frontal radiograph of the chest was obtained. Comparison: None available at the time of this dictation. FINDINGS: No lines and tubes are seen. The cardiomediastinal silhouette is normal. The lungs are clear. No evidence of pleural effusion or pneumothorax. IMPRESSION: No acute chest disease. ACT 112: Negative or not required by law. Electronically signed by: Jonathan Hayden M.D. 08/07/2024 2:[address] 08/07/24 13:03 CT head/brain wo con CLINICAL HISTORY: trauma Technique: Contiguous axial CT images of the head were acquired from the base of the skull to the vertex without intravenous contrast administration. Images were viewed in brain, subdural and bone windows. Automated dose lowering techniques and/or adjustment according to patient size were utilized for this exam. Comparison: None available at the time of this dictation. Findings: Areas of decreased attenuation are present in the periventricular and subcortical white matter bilaterally consistent with small vessel ischemic disease. Generalized cerebral atrophy with commensurate enlargement of the ventricles, sulci, and cisterns is also present. There is no acute intracranial hemorrhage or evidence of acute territorial infarction. No shift of the midline structures, mass effect, or extra-axial abnormalities are shown. Atherosclerotic calcifications are present in the intracranial segments of the internal carotid arteries. Imaged portions of the paranasal sinuses and mastoid air cells are clear. The orbits appear normal. There are no acute fractures of the calvaria or scalp swelling. Impression: No acute intracranial hemorrhage, no evidence of acute territorial infarction or other acute intracranial disease process. ACT 112: Negative or not required by law. Electronically signed by: Jonathan Hayden M.D. 08/07/2024 2:25 PM Supervising Physician Co-Signing Physician Notes Pt seen and examined by me, care coordinated w/ Micheal Rizo PA-C, pls refer to her note above for further detail. 59 yo F with hx of ETOH abuse, essential tremor, tobacco use disorder, severe hepatic steatosis presents to ER with c/o fall. History obtained from patient and patient's neighbor. Pt intoxicated and having visual hallucinations in the ED room. Patient previously presented to the [facility] ED on 02/18/24 for evaluation after sustaining a fall down steps. Patient was noted to have the following trauma- related injuries at that time: distal L clavicular fx, T4/T9 compression fx, S3 nondisplaced fx, C1 fx, occipital condyle fx, multiple L-sided rib fx's, nasal fx, right lamina papyracea fx and right inferior orbital wall fx, R mandibular dislocation. She was admitted at [facility] from 02/17 to 02/21. She did not undergo any surgical interventions. Currently pt has c- collar on, and bleeding from posterior scalp. EtOH level ~500. Denies any chest pain or shortness of breath. denies abd. pain. Lung sounds diminished, poor resp. effort, Heart sounds regular. She is moving extremities. Will obtain urine tox. replace electrolytes. give IVF. thiamine, folic acid, gabapentin protocol. Closely monitor on tele. MD Tucker (1) Alcohol intoxication Complication of substance-induced condition: uncomplicated Qualified Code(s): F10.920 - Alcohol use, unspecified with intoxication, uncomplicated (2) Fall Encounter type: initial encounter Qualified Code(s): W19.XXXA - Unspecified fall, initial encounter
[2024-08-07 16:26] LABS: Appearance Urine Clear (Clear); Bacteria Urine Automated 2+ (None Seen); Bilirubin Urine Negative (Negative); Blood Urine Negative (Negative); Color Urine Yellow; Glucose Urine UA Negative (Negative); Ketones Urine Negative (Negative); Leukocyte Esterase Urine Negative (Negative); Nitrite Urine Negative (Negative); Protein Urine Trace (Negative); RBC Urine Automated 0-2 /hpf (0-2); Specific Gravity Urine 1.044 (1.000-1.030); Urobilinogen Urine Negative (Negative); WBC Urine Automated 0-5 /hpf (0-5); pH Urine 5.5 (4.5-7.5)
[2024-08-07] MEDS: THIAMINE HCL 100 MG in SYRINGE 9 ML IV ONE (16:36)
[2024-08-07] MEDS: POTASSIUM CHLORIDE CRTAB 20 MEQ TABCR PO ONE ×2 (16:41→21:11)
[2024-08-07] MEDS: MAGNESIUM SULFATE / D5W 1 GM/100 ML BAG IV STA ×2 (16:41→18:15)
[2024-08-07] MEDS: ceFAZolin 2000MG 2,000 MG/15 ML SYR IV STA (16:43)
[2024-08-07 16:59] LABS: Amphetamines+Metham, Urine Neg (Neg); Barbiturates, Urine Neg (Neg); Benzodiazepine, Urine Neg (Neg); Cocaine, Urine Neg (Neg); Fentanyl, Urine Neg (Neg); MDMA (Ecstacy), Urine Neg (Neg); Marijuana, Urine Neg (Neg); Methadone, Urine Neg (Neg); Opiate, Urine Neg (Neg); Phencyclidine, Urine Neg (Neg)
[2024-08-07] MEDS ORDERED: POLYETHYLENE (MIRALAX) 17 GM PACK PO PRN (17:45)
[2024-08-07] MEDS ORDERED: GABAPENTIN 1200MG ALCOHOL WITHDRAWAL LOAD PO STA (17:45)
[2024-08-07] MEDS ORDERED: ONDANSETRON INJ 2 MG/ML 2 ML VIAL IV PRN (17:45)
[2024-08-07] MEDS: GABAPENTIN 600 MG TAB PO ONE (18:29)
[2024-08-07] MEDS: ACETAMINOPHEN 325 MG TAB PO PRN (21:11)
[2024-08-07] MEDS: GABAPENTIN 600 MG TAB PO SCH (21:11)
[2024-08-08 06:35] LABS: Albumin Globulin Ratio 1.1 (0.9-2); Albumin Level 2.7 gm/dl (3.4-5.0); Bilirubin,Total 1.3 mg/dl (0.2-1.0); Calcium 7.2 mg/dl (8.6-10.3); Creatinine Clr Calc Pharmacy 115.2 ml/min; Globulin 2.4 gm/dl (2.5-4.0); Magnesium 1.3 mg/dl (1.7-2.4); Phosphorus 3.8 mg/dl (2.5-4.9); Potassium 3.3 mmol/L (3.5-5.1); Total Protein 5.1 gm/dl (6.0-8.3)
[2024-08-08 06:36] LABS: Hematocrit (blood only) 31.8 % (37.0-47.0); Hemoglobin 10.9 g/dl (12.0-16.0); Mean Corpuscular Hemoglobin 36.6 pg (25.0-34.0); Mean Corpuscular Hgb Conc 34.3 g/dL (32.0-36.0); Mean Corpuscular Volume 106.7 fL (80.0-100.0); Platelet Count 287 K/uL (130-400); RDW Coefficient of Variation 13.9 % (11.5-14.5); Red Blood Count 2.98 M/uL (4.20-5.40); White Blood Count 8.93 K/ul (4.8-10.8)
[2024-08-08] MEDS: FOLIC ACID 1 MG TAB PO SCH (08:28)
[2024-08-08] MEDS: MULTIVITAMIN TAB PO SCH (08:28)
[2024-08-08] MEDS: CALCIUM 600MG + VIT D 400 IU TAB PO SCH (08:28)
[2024-08-08] MEDS: THIAMINE HCL 100 MG TAB PO SCH (08:29)
[2024-08-08] MEDS: POTASSIUM CHLORIDE CRTAB 20 MEQ TABCR PO STA (08:34)
[2024-08-08] MEDS: MAGNESIUM SULFATE / D5W 1 GM/100 ML BAG IV SCH (08:36)
[2024-08-08] MEDS: LORazepam 2 MG/1 ML VIAL IV PRN (08:36)
[2024-08-08] MEDS ORDERED: LORazepam 2 MG/1 ML VIAL IV PRN (08:58)
[2024-08-08] MEDS ORDERED: THIAMINE HCL 100 MG TAB PO SCH (09:00)
[2024-08-08] MEDS ORDERED: Ativan PO Alcohol Withdrawal--Active Protocol PO PRN (09:00)
[2024-08-08] MEDS ORDERED: FOLIC ACID 1 MG TAB PO SCH (09:00)
--- NOTE | 2024-08-08 10:47 | Hospitalist Progress Note ---
Date of Service August 08, 2024 Assessment & Plan (1) Alcohol withdrawal syndrome without complication: Plan: -patient came in with very high alcohol level, now has severe tremors and elevated CIWA scores -patient is at high risk of DT due to significant alcohol use and hx of severe withdrawal -patient is motivated to get sober Plan: -gabapentin taper and ativan based on CIWA scores -seizure precautions -Daily multivitamin, thiamine and folic acid -discussed with patient and case management, will need alcohol rehab on discharge -not a candidate for naltrexone given abnormal LFTs -check HIV, Hep C status as part of alcohol use disorder workup -check TSH, B12 given elevated MCV, likely 2/2 alcohol use (2) Alcohol intoxication: Plan: -has likely resolved at this time (3) Fall: Plan: -CT head WNL, C1 fracture of subacute to chronic nature on C spine scan, T5-T9 compression fractures are likely subacute to chronic -patient had trauma workup in ED, mechanical in nautre 2/2 severe intoxication Plan: -PT/OT ordered -IV tylenol for pain (4) Hypokalemia: Plan: -replenished (5) Transaminitis: Plan: -patient has hepatic steatosis, and consideration for cirrhosis at this point gi elida heavy alcohol use Plan: -f/u with GI outpatient for cirrhosis workup (6) Laceration of scalp: Plan: -stapled in ED Plan Feeding/fluids: regular Analgesia: tylenol (no oxy given ativan) Sedation: na Thromboprophylaxis: SCD (transition to lovenox tomorrow once out acute period) Head up position: na Ulcer prophylaxis: na Glycemic control: na Spontaneous breathing trial: na Bowel care: miralax prn Indwelling catheter removal: na Deescalation of antibiotics: na I spent a total of 60 minutes coordinating, documenting, and providing care for this patient excluding time spent in the performance of separately billed services. Admission and Anticipated Discharge Date Admission Date: August 07, 2024 Subjective 59-year-old female with past medical history including significant alcohol use, known severe hepatic steatosis who presents with a sick very high alcohol level after fall. In the ED, noted to have a high alcohol level above 500 in the blood. Trauma evaluation performed showing laceration of the scalp but no new fractures. Admitted to medicine for further workup. Patient is doing okay this morning. We discussed her significant alcohol use and concerned that this injury could have been much worse. Discussed sobriety. Patient is interested in getting sober and accessing resources in the community for becoming sober. She drinks a lot of alcohol daily. She has tried getting sober before without success. She is having pain in the back of her head. She is having shakes as well. She feels like she is withdrawing. Review of Systems Review of Systems: CONSTITUTIONAL: fatigue EYES: Patient denies any visual symptoms. EARS, NOSE, AND THROAT: No difficulties with hearing. No symptoms of rhinitis or sore throat. CARDIOVASCULAR: Patient denies chest pains, palpitations, orthopnea and paroxysmal nocturnal dyspnea. RESPIRATORY: No dyspnea on exertion, no wheezing or cough. GI: No nausea, vomiting, diarrhea, constipation, abdominal pain, hematochezia or melena. : No urinary hesitancy or dribbling. No nocturia or urinary frequency. No abnormal urethral discharge. MUSCULOSKELETAL: back of head pain NEUROLOGIC: significant tremors noted PSYCHIATRIC: Patient denies problems with mood disturbance. No problems with anxiety. ENDOCRINE: No excessive urination or excessive thirst. DERMATOLOGIC: Patient denies any rashes or skin changes. Physical Exam Physical Exam: Gen: A&O 3 NAD HEENT: noted trauma to back of head Neck: Supple, full range of motion, no observable masses, No meningeal sign. Lungs: No Respiratory distress. CV: RRR, no edema. Abdomen: Soft, nondistended, No rebound tenderness. MSK: bilateral tremors Skin: disheveled Neuro: Normal Gait, Grossly intact. Psych: Appropriate for situation. Results & Data Results & Data Vital Signs (Past 12 Hours) Vital Signs Temp Pulse Pulse Resp BP Pulse Ox O2 Del Method 08/08/24 07:44 37.6 C H 129 H 20 126/85 94 Room Air 08/08/24 07:42 119 H 08/08/24 02:55 36.8 C 112 H 18 121/80 96 Room Air 08/07/24 23:17 37.0 C 100 H 18 95/61 L 96 Room Air Laboratory Results Laboratory Results WBC 8.93 K/ul (4.8-10.8) 08/08/24 05:37 RBC 2.98 M/uL (4.20-5.40) L 08/08/24 05:37 Hgb 10.9 g/dl (12.0-16.0) L 08/08/24 05:37 POC Hgb 12.9 g/dl (12.0-16.0) 08/07/24 13:20 Hct 31.8 % (37.0-47.0) L 08/08/24 05:37 POC Hct 38 % (37-47) 08/07/24 13:20 MCV 106.7 fL (80.0-100.0) H 08/08/24 05:37 MCH 36.6 pg (25.0-34.0) H 08/08/24 05:37 MCHC 34.3 g/dL (32.0-36.0) 08/08/24 05:37 RDW Std Deviation 55.0 fL (36.4-46.3) H 08/08/24 05:37 RDW Coeff of Gio 13.9 % (11.5-14.5) 08/08/24 05:37 Plt Count 287 K/uL (130-400) 08/08/24 05:37 MPV 9.0 fL (9.4-12.4) L 08/08/24 05:37 Immature Gran % (Auto) 0.5 % 08/07/24 12:59 Neut % (Auto) 51.3 % 08/07/24 12:59 Lymph % (Auto) 36.9 % 08/07/24 12:59 [place] % (Auto) 8.8 % 08/07/24 12:59 Eos % (Auto) 1.8 % 08/07/24 12:59 Baso % (Auto) 0.7 % 08/07/24 12:59 Neut # (Auto) 3.93 K/uL (1.40-6.50) 08/07/24 12:59 Lymph # (Auto) 2.82 K/uL (1.20-3.40) 08/07/24 12:59 [place] # (Auto) 0.67 K/uL (0.11-0.59) H 08/07/24 12:59 Eos # (Auto) 0.14 K/uL (0.00-0.50) 08/07/24 12:59 Baso # (Auto) 0.05 K/uL (0.00-0.20) 08/07/24 12:59 Immature Gran # (Auto) 0.04 K/uL (0.01-0.20) 08/07/24 12:59 PT 11.8 Seconds (9.0-12.0) 08/07/24 12:59 INR 1.1 (0.9-1.1) 08/07/24 12:59 APTT 24 Seconds (21-31) 08/07/24 12:59 PTT Ratio 0.9 08/07/24 12:59 POC Sodium 142 mmol/L (135-144) 08/07/24 13:20 Sodium 138 mmol/L (136-145) 08/08/24 05:37 POC Potassium 2.6 mmol/L (3.3-5.0) L 08/07/24 13:20 Potassium 3.3 mmol/L (3.5-5.1) L 08/08/24 05:37 POC Chloride 97 mmol/L (101-112) L 08/07/24 13:20 Chloride 99 mmol/L (98-107) 08/08/24 05:37 Carbon Dioxide 24 mmol/L (21-32) 08/08/24 05:37 POC Total CO2 33 mmol/L (24-31) H 08/07/24 13:20 Anion Gap 15 (3-11) H 08/08/24 05:37 POC Anion Gap 16.0 mmol/L (16-25) 08/07/24 13:20 POC BUN < 3 mg/dl (7-18) L 08/07/24 13:20 BUN 5 mg/dl (6-23) L 08/08/24 05:37 Creatinine 0.50 mg/dl (0.6-1.2) L 08/08/24 05:37 POC Creatinine 1.1 mg/dl (0.6-1.3) 08/07/24 13:20 Est Cr Clr Drug Dosing 115.2 ml/min 08/08/24 05:37 eGFR 109.33 08/08/24 05:37 BUN/Creatinine Ratio 10.0 (10-20) 08/08/24 05:37 Glucose 102 mg/dl (70-99(Fasting)) H 08/08/24 05:37 POC Glucose (other) 87 mg/dl (70-99) 08/07/24 13:20 Calcium 7.2 mg/dl (8.6-10.3) L 08/08/24 05:37 POC Ioniz Calcium Zane 0.90 mmol/l (1.12-1.32) L 08/07/24 13:20 Phosphorus 3.8 mg/dl (2.5-4.9) 08/08/24 05:37 Magnesium 1.3 mg/dl (1.7-2.4) L 08/08/24 05:37 Total Bilirubin 1.3 mg/dl (0.2-1.0) H 08/08/24 05:37 AST 236 U/L (13-39) H 08/08/24 05:37 ALT 55 U/L (7-52) H 08/08/24 05:37 Alkaline Phosphatase 208 U/L (34-104) H 08/08/24 05:37 Total Creatine Kinase 51 U/L (26-192) 08/07/24 12:59 Total Protein 5.1 gm/dl (6.0-8.3) L 08/08/24 05:37 Albumin 2.7 gm/dl (3.4-5.0) L 08/08/24 05:37 Globulin 2.4 gm/dl (2.5-4.0) L 08/08/24 05:37 Albumin/Globulin Ratio 1.1 (0.9-2) 08/08/24 05:37 Lipase 33 U/L (11-82) 08/07/24 12:59 Urine Color Yellow 08/07/24 15:47 Urine Appearance Clear (Clear) 08/07/24 15:47 Urine pH 5.5 (4.5-7.5) 08/07/24 15:47 Ur Specific [place] 1.044 (1.000-1.030) H 08/07/24 15:47 Urine Protein Trace (Negative) H 08/07/24 15:47 Urine Glucose (UA) Negative (Negative) 08/07/24 15:47 Urine Ketones Negative (Negative) 08/07/24 15:47 Urine Blood Negative (Negative) 08/07/24 15:47 Urine Nitrite Negative (Negative) 08/07/24 15:47 Urine Bilirubin Negative (Negative) 08/07/24 15:47 Urine Urobilinogen Negative (Negative) 08/07/24 15:47 Ur Leukocyte Esterase Negative (Negative) 08/07/24 15:47 Urine WBC (Auto) 0-5 /hpf (0-5) 08/07/24 15:47 Urine RBC (Auto) 0-2 /hpf (0-2) 08/07/24 15:47 U Hyaline Cast (Auto) 6-10 /lpf (0-2) H 08/07/24 15:47 U Epithel Cells (Auto) 11-20 /hpf (0-2) H 08/07/24 15:47 Urine Bacteria (Auto) 2+ (None Seen) H 08/07/24 15:47 Urine Opiates Screen Neg (Neg) 08/07/24 15:47 Ur Methadone, Qual Neg (Neg) 08/07/24 15:47 Urine Fentanyl Screen Neg (Neg) 08/07/24 15:47 Urine Barbiturates Neg (Neg) 08/07/24 15:47 Ur Phencyclidine (PCP) Neg (Neg) 08/07/24 15:47 U Amphetamin/Meth Scrn Neg (Neg) 08/07/24 15:47 MDMA (Ecstasy) Screen Neg (Neg) 08/07/24 15:47 U Benzodiazepines Scrn Neg (Neg) 08/07/24 15:47 Ur Cocaine Metabolite Neg (Neg) 08/07/24 15:47 U Marijuana (THC) Screen Neg (Neg) 08/07/24 15:47 Ethyl Alcohol mg/dL 513.8 mg/dl (<10.0) H 08/07/24 12:59 Impressions Abdomen/Pelvis CT 08/07/24 13:03 CT abd pelvis IV con only CLINICAL HISTORY: Trauma TECHNIQUE: Helical axial images of the abdomen and pelvis were obtained and displayed. Automated dose lowering techniques and/or adjustment according to patient size were utilized for this exam. This exam was performed with intravenous contrast. COMPARISON: Comparison is made to FINDINGS: Lower chest: No acute abnormality. Liver: Hepatic steatosis is noted. Gallbladder and biliary tree: No calcified gallstones. Normal caliber wall. No intra- or extrahepatic biliary ductal dilation. Pancreas: Unremarkable, no focal lesions. Spleen: Unremarkable. Adrenals: Unremarkable. Kidneys and ureters: Nonobstructive nephrolithiasis is seen. Bladder: Unremarkable. Reproductive organs: Right ovary ovarian cyst is seen. Bowel: The appendix is normal. There is a small hiatal hernia. Lymph nodes Retroperitoneal: Unremarkable. Pelvic: Unremarkable. Mesenteric: Unremarkable. Peritoneum: There is a 8mm lesion measuring greater than simple fluid density anterosuperior to the right kidney. Vessels: Atherosclerotic calcifications are seen. Abdominal wall: Unremarkable. Bones: Partial visualization of a subacute appearing rib fracture is better seen on CT chest. T9 compression deformity is also partly visualized. IMPRESSION: 1. No acute abnormalities and in particular no evidence of acute fractures. 2. Hepatic steatosis. 3. A simple fluid density lesion anterosuperior to the right kidney, which may possibly represent a highly exophytic hemorrhagic/proteinaceous cyst. ACT 112: Negative or not required by law. Electronically signed by: Jonathan Hayden M.D. 08/07/2024 2:[address] 08/07/24 13:03 CT cervical spine wo con CLINICAL HISTORY: Trauma TECHNIQUE: Multidetector row helical CT of the cervical spine was performed without administration of intravenous contrast. Coronal and sagittal reformations were obtained. Automated dose lowering techniques and/or adjustment according to patient size were utilized for this exam. Comparison: None available at the time of this dictation. FINDINGS: No acute fractures or subluxations are identified. Degenerative changes are seen in the visualized spine. Irregularity of the anterior arch of C1 is compatible w ith subacute to chronic fracture. The alignment is normal. Soft tissues are unremarkable. IMPRESSION: Irregularity of the anterior arch of C1 is seen compatible with subacute to chronic fracture. Clinical correlation is recommended to exclude any acute component of fracture. ACT 112: Negative or not required by law. Electronically signed by: Jonathan Hayden M.D. 08/07/2024 2:[address] 08/07/24 13:03 CT OF THE CHEST WITH IV CONTRAST CLINICAL HISTORY: Trauma COMPARISON STUDY: No previous studies for comparison. TECHNIQUE: Following IV administration of 93 mL of Optiray, helical axial images of the chest were obtained. Sagittal and coronal reconstructions were viewed as well as maximal intensity projections on an independent 3-D workstation. Automated exposure control was utilized for the study. A dose lowering technique was utilized adhering to the principles of ALARA. FINDINGS: There is no evidence for traumatic injury to the thoracic aorta. The size of the heart is normal. There is a small hiatal hernia. No pericardial effusion is present. There is no pneumothorax or pleural effusion. Linear densities within the lungs favor scarring or atelectasis. There is no pulmonary contusion. There are no suspicious pulmonary nodules. Multiple small sclerotic foci within the spine and several ribs statistically represent bone islands. There is slight loss of height of the superior endplate of T4. There is mild loss of height of the superior endplate of T9. A subtle fracture line is noted with mild sclerosis. There is no significant retropulsion. No extension into the posterior elements is present. Numerous subacute to chronic bilateral rib fractures are present. No acute rib fractures are identified. This exam is mildly compromised by motion artifact. There is severe hepatic steatosis. The abdomen and pelvis CT will be reported separately. IMPRESSION: 1. No evidence for traumatic injury to the thoracic aorta. 2. T4 and T9 compression fractures, as described above. Mild loss of height of the superior endplate of T9 and minimal loss of height of the superior endplate of T4. These fractures are age indeterminate although favor subacute. 3. Numerous subacute to chronic bilateral rib fractures. No acute rib fractures. No pneumothorax. 3. Severe hepatic steatosis. ACT 112: Negative or not required by law. Electronically signed by: Agustin Carrero M.D. 08/07/2024 2:08 PM Chest X-Ray 08/07/24 13:03 XR chest 1V portable CLINICAL HISTORY: Trauma TECHNIQUE: Single frontal radiograph of the chest was obtained. Comparison: None available at the time of this dictation. FINDINGS: No lines and tubes are seen. The cardiomediastinal silhouette is normal. The lungs are clear. No evidence of pleural effusion or pneumothorax. IMPRESSION: No acute chest disease. ACT 112: Negative or not required by law. Electronically signed by: Jonathan Hayden M.D. 08/07/2024 2:[address] 08/07/24 13:03 CT head/brain wo con CLINICAL HISTORY: trauma Technique: Contiguous axial CT images of the head were acquired from the base of the skull to the vertex without intravenous contrast administration. Images were viewed in brain, subdural and bone windows. Automated dose lowering techniques and/or adjustment according to patient size were utilized for this exam. Comparison: None available at the time of this dictation. Findings: Areas of decreased attenuation are present in the periventricular and subcortical white matter bilaterally consistent with small vessel ischemic disease. Generalized cerebral atrophy with commensurate enlargement of the ventricles, sulci, and cisterns is also present. There is no acute intracranial hemorrhage or evidence of acute territorial infarction. No shift of the midline structures, mass effect, or extra-axial abnormalities are shown. Atherosclerotic calcifications are present in the intracranial segments of the internal carotid arteries. Imaged portions of the paranasal sinuses and mastoid air cells are clear. The orbits appear normal. There are no acute fractures of the calvaria or scalp swelling. Impression: No acute intracranial hemorrhage, no evidence of acute territorial infarction or other acute intracranial disease process. ACT 112: Negative or not required by law. Electronically signed by: Jonathan Hayden M.D. 08/07/2024 2:25 PM (2) Alcohol intoxication Complication of substance-induced condition: uncomplicated Qualified Code(s): F10.920 - Alcohol use, unspecified with intoxication, uncomplicated (3) Fall Encounter type: initial encounter Qualified Code(s): W19.XXXA - Unspecified f all, initial encounter (6) Laceration of scalp Encounter type: initial encounter Qualified Code(s): S01.01XA - Laceration without foreign body of scalp, initial encounter
[2024-08-08] MEDS: GABAPENTIN 600 MG TAB PO SCH (12:37)
[2024-08-08 13:26] LABS: Thyroid Stimulating Hormone 2.404 uIu/ml (0.300-4.500)
[2024-08-08 14:16] LABS: HIV 4th Gen(HIV 1,2 AB+p24 Ag Negative (Negative)
[2024-08-08 14:29] LABS: Hep C Ab Rflx HepCQuant RNA Negative (Negative)
[2024-08-08] MEDS: ACETAMINOPHEN 1,000 MG/100 ML VIAL IV PRN (22:35)
[2024-08-08] MEDS: LORazepam 1 MG TAB PO PRN (22:44)
[2024-08-09 07:15] LABS: Hematocrit (blood only) 32.2 % (37.0-47.0); Hemoglobin 10.7 g/dl (12.0-16.0); Mean Corpuscular Hemoglobin 35.9 pg (25.0-34.0); Mean Corpuscular Hgb Conc 33.2 g/dL (32.0-36.0); Mean Corpuscular Volume 108.1 fL (80.0-100.0); Mean Platelet Volume 9.2 fL (9.4-12.4); Nucleated RBC # (auto) 0.03 K/uL (0.00-0.12); Nucleated RBC % (auto) 0.5 %; Platelet Count 168 K/uL (130-400); RDW Coefficient of Variation 13.9 % (11.5-14.5); RDW Standard Deviation 55.2 fL (36.4-46.3); Red Blood Count 2.98 M/uL (4.20-5.40); White Blood Count 6.05 K/ul (4.8-10.8)
[2024-08-09 07:47] LABS: Magnesium 1.8 mg/dl (1.7-2.4)
[2024-08-09 07:59] LABS: Phosphorus 1.9 mg/dl (2.5-4.9)
[2024-08-09] MEDS: LORazepam 1 MG TAB PO PRN ×2 (10:57→20:38)
[2024-08-09] MEDS: CALAMINE/PRAMOXINE LOTION 180 APPLN/180 ML BTL EXT SCH (11:45)
[2024-08-09] MEDS ORDERED: POTASSIUM PHOS 3 MMOL/1 ML INFUSION IV STA (13:38)
--- NOTE | 2024-08-09 14:25 | Hospitalist Progress Note ---
Date of Service August 09, 2024 Assessment & Plan (1) Alcohol withdrawal syndrome without complication: Plan 59-year-old lady with PMH of EtOH abuse, essential tremor, tobacco use disorder, severe hepatic steatosis presented to the ED with fall. According to patient's neighbor, there was 1.5 L bottle of liquor almost empty noted in the kitchen. Patient noted to have high alcohol level at presentation at 513. Patient reports she drinks " a lot" and last drink was prior to arrival on 08/07/2024. Alcohol abuse Alcohol withdrawal syndrome Transaminitis: Hepatic steatosis ISO chronic alcohol use. Follow-up with GI as an outpatient for cirrhosis workup. Patient drinks a lot, noted to have high alcohol level at presentation. See above. Patient at high risks of DVT due to significant alcohol use and history of severe withdrawal. Urine toxicology screen negative. Hepatitis C and HIV test negative. TSH WNL. B12 normal. Not a candidate for naltrexone, hepatic impairment and use of oxycodone as an outpatient. Continue with gabapentin taper, CONSUELO S protocol with as needed Ativan. Continue with multivitamin, folic acid and thiamine. Monitor replete electrolytes daily. Alcohol cessation counseling done in detail, patient would like to follow-up outpatient rehab. Alcohol intoxication: Likely resolved at this time. Fall: CT head WNL, C1 fracture of subacute to chronic nature on C spine scan, T5-T9 compression fractures are likely subacute to chronic. patient had trauma workup in ED, mechanical in nautre 2/2 severe intoxication. Continue pain management, PT/OT when out of withdrawal. likely will benefit for OP dexa scan given concern for osteoporosis iso vit d def 2/2 alc & tobacco abuse/poor nutrition. Laceration of scalp: Stapled in ED, monitor for any signs and symptoms of infection. Vitamin D deficiency: In the setting of chronic alcohol use and tobacco use. Admitting vitamin D level of 22.2, increase vitamin D dose to 5000 to 6000 units daily, continue for 6 to 8 weeks, repeat vitamin D level in 2 months, after 8 weeks continue with RE[employer] PERSON home dose of vitamin D level. DVT prophylaxis: Heparin subcu Full code Admission and Anticipated Discharge Date Admission Date: August 07, 2024 Subjective 59-year-old female with past medical history including significant alcohol use, known severe hepatic steatosis who presents with a sick very high alcohol level after fall. In the ED, noted to have a high alcohol level above 500 in the blood. Trauma evaluation performed showing laceration of the scalp but no new fractures. Admitted to medicine for further workup. Patient was seen and examined at bedside. Patient was sitting up in chair, on room air, NAD, has some mild tremors of her both hands. Patient reports eating okay, moving bowels okay, denies pain or burning while passing urine. Patient has some skin rash/allergy to her buttocks. Reports no pain and minimal itching. Will use calamine lotion and monitor. Physical Exam Physical Exam: Gen: A&O 3 NAD HEENT: noted trauma to back of head Neck: Supple, full range of motion, no observable masses, No meningeal sign. Lungs: No Respiratory distress. CV: RRR, no edema. Abdomen: Soft, nondistended, No rebound tenderness. MSK: bilateral hand tremors Skin: disheveled Neuro: Normal Gait, Grossly intact. Psych: Appropriate for situation. Results & Data Results & Data Vital Signs (Past 12 Hours) Vital Signs Temp Pulse Pulse Resp BP BP Pulse Ox 08/09/24 12:42 122 H 23 120/98 96 08/09/24 11:45 139/88 08/09/24 11:33 135 H 17 97 08/09/24 11:31 126/89 08/09/24 11:17 115/84 08/09/24 11:15 119 H 23 93 08/09/24 11:15 38 C H 116 H 24 115/84 96 08/09/24 10:39 37.8 C H 129 H 18 115/93 95 08/09/24 08:00 103 H 08/09/24 07:23 36.9 C 117 H 23 125/91 96 08/09/24 03:05 36.5 C 101 H 18 126/86 97 O2 Del Method 08/09/24 12:42 08/09/24 11:45 08/09/24 11:33 Room Air 08/09/24 11:31 08/09/24 11:17 08/09/24 11:15 Room Air 08/09/24 11:15 Room Air 08/09/24 10:39 Room Air 08/09/24 08:00 08/09/24 07:23 Room Air 08/09/24 03:05 Room Air
[2024-08-09] MEDS: POT PHOSPHATE MONOBASIC W/ SOD TAB PO SCH (15:00)
[2024-08-09] MEDS: GABAPENTIN 600 MG TAB PO SCH (16:06)
[2024-08-10 06:26] LABS: Hematocrit (blood only) 29.3 % (37.0-47.0); Hemoglobin 9.9 g/dl (12.0-16.0); Mean Corpuscular Hemoglobin 36.8 pg (25.0-34.0); Mean Corpuscular Hgb Conc 33.8 g/dL (32.0-36.0); Mean Corpuscular Volume 108.9 fL (80.0-100.0); Mean Platelet Volume 9.9 fL (9.4-12.4); Platelet Count 167 K/uL (130-400); RDW Coefficient of Variation 13.7 % (11.5-14.5); RDW Standard Deviation 55.5 fL (36.4-46.3); Red Blood Count 2.69 M/uL (4.20-5.40); White Blood Count 6.75 K/ul (4.8-10.8)
[2024-08-10 06:42] LABS: BUN Creatinine Ratio 8.3 (10-20); Creatinine Clr Calc Pharmacy 142.6 ml/min; Magnesium 1.3 mg/dl (1.7-2.4); Potassium 3.2 mmol/L (3.5-5.1)
[2024-08-10] MEDS: CHOLECALCIFEROL 125 MCG (5,000 UNITS) TAB PO SCH (08:59)
[2024-08-10] MEDS: MAGNESIUM SULFATE / D5W 1 GM/100 ML BAG IV SCH (09:03)
[2024-08-10] MEDS: POTASSIUM CHLORIDE CRTAB 20 MEQ TABCR PO SCH (09:04)
--- NOTE | 2024-08-10 16:35 | Hospitalist Progress Note ---
Date of Service August 10, 2024 Assessment & Plan (1) Alcohol withdrawal syndrome without complication: Plan 59-year-old lady with PMH of EtOH abuse, essential tremor, tobacco use disorder, severe hepatic steatosis presented to the ED with fall. According to patient's neighbor, there was 1.5 L bottle of liquor almost empty noted in the kitchen. Patient noted to have high alcohol level at presentation at 513. Patient reports she drinks " a lot" and last drink was prior to arrival on 08/07/2024. Alcohol abuse Alcohol withdrawal syndrome Transaminitis: Hepatic steatosis ISO chronic alcohol use. Follow-up with GI as an outpatient for cirrhosis workup. Patient drinks a lot, noted to have high alcohol level at presentation. See above. Patient at high risks of DVT due to significant alcohol use and history of severe withdrawal. Urine toxicology screen negative. Hepatitis C and HIV test negative. TSH WNL. B12 normal. Not a candidate for naltrexone, hepatic impairment and use of oxycodone as an outpatient. Continue with gabapentin taper, CONSUELO S protocol with as needed Ativan. Continue with multivitamin, folic acid and thiamine. Monitor replete electrolytes daily. Alcohol cessation counseling done in detail, patient would like to follow-up outpatient rehab. Alcohol intoxication: Likely resolved at this time. Fall: CT head WNL, C1 fracture of subacute to chronic nature on C spine scan, T5-T9 compression fractures are likely subacute to chronic. patient had trauma workup in ED, mechanical in nautre 2/2 severe intoxication. Continue pain management, PT/OT when out of withdrawal. likely will benefit for OP dexa scan given concern for osteoporosis iso vit d def 2/2 alc & tobacco abuse/poor nutrition. Laceration of scalp: Stapled in ED, monitor for any signs and symptoms of infection. Vitamin D deficiency: In the setting of chronic alcohol use and tobacco use. Admitting vitamin D level of 22.2, increase vitamin D dose to 5000 to 6000 units daily, continue for 6 to 8 weeks, repeat vitamin D level in 2 months, after 8 weeks continue with NON [employer]ER home dose of vitamin D level. DVT prophylaxis: Heparin subcu Full code Admission and Anticipated Discharge Date Admission Date: August 07, 2024 Subjective 59-year-old female with past medical history including significant alcohol use, known severe hepatic steatosis who presents with a sick very high alcohol level after fall. In the ED, noted to have a high alcohol level above 500 in the blood. Trauma evaluation performed showing laceration of the scalp but no new fractures. Admitted to medicine for further workup. Patient was seen and examined at bedside. Patient was lying in bed, on room air, NAD, has some mild tremors of her both hands. Patient reports eating okay, moving bowels okay, denies pain or burning while passing urine. Pt appears some disoriented today, undergoing withdrawal. Physical Exam Physical Exam: Gen: A&O 3 NAD HEENT: noted trauma to back of head Neck: Supple, full range of motion, no observable masses, No meningeal sign. Lungs: No Respiratory distress. CV: RRR, no edema. Abdomen: Soft, nondistended, No rebound tenderness. MSK: bilateral hand tremors Skin: disheveled Neuro: Normal Gait, Grossly intact. Psych: Appropriate for situation. Results & Data Results & Data Vital Signs (Past 12 Hours) Vital Signs Temp Pulse Pulse Resp BP Pulse Ox O2 Del Method 08/10/24 15:15 37.1 C 113 H 18 135/94 95 Room Air 08/10/24 10:52 36.9 C 117 H 19 117/91 95 Room Air 08/10/24 08:00 Room Air 08/10/24 07:36 110 H 08/10/24 07:35 36.9 C 113 H 18 127/99 97 Room Air 08/10/24 04:56 110 H 20 113/88 94 Room Air
[2024-08-10] MEDS: ACETAMINOPHEN 500 MG TAB PO PRN (21:49)
[2024-08-11] MEDS: GABAPENTIN 600 MG TAB PO SCH (04:06)
[2024-08-11 06:22] LABS: Hematocrit (blood only) 32.2 % (37.0-47.0); Hemoglobin 10.6 g/dl (12.0-16.0); Mean Corpuscular Hemoglobin 36.3 pg (25.0-34.0); Mean Corpuscular Hgb Conc 32.9 g/dL (32.0-36.0); Mean Corpuscular Volume 110.3 fL (80.0-100.0); Mean Platelet Volume 9.5 fL (9.4-12.4); Platelet Count 195 K/uL (130-400); RDW Coefficient of Variation 14.4 % (11.5-14.5); RDW Standard Deviation 58.4 fL (36.4-46.3); Red Blood Count 2.92 M/uL (4.20-5.40); White Blood Count 6.37 K/ul (4.8-10.8)
[2024-08-11 06:42] LABS: BUN Creatinine Ratio 8.6 (10-20); Calcium 8.5 mg/dl (8.6-10.3); Creatinine Clr Calc Pharmacy 148.9 ml/min; Magnesium 1.6 mg/dl (1.7-2.4); Phosphorus 2.6 mg/dl (2.5-4.9); Potassium 4.6 mmol/L (3.5-5.1)
[2024-08-11] MEDS: MAGNESIUM SULFATE / D5W 1 GM/100 ML BAG IV SCH (08:58)
--- NOTE | 2024-08-11 16:31 | Hospitalist Progress Note ---
Date of Service August 11, 2024 Assessment & Plan (1) Alcohol withdrawal syndrome without complication: Plan 59-year-old lady with PMH of EtOH abuse, essential tremor, tobacco use disorder, severe hepatic steatosis presented to the ED with fall. According to patient's neighbor, there was 1.5 L bottle of liquor almost empty noted in the kitchen. Patient noted to have high alcohol level at presentation at 513. Patient reports she drinks " a lot" and last drink was prior to arrival on 08/07/2024. Alcohol abuse Alcohol withdrawal syndrome Transaminitis: Hepatic steatosis ISO chronic alcohol use. Follow-up with GI as an outpatient for cirrhosis workup. Patient drinks a lot, noted to have high alcohol level at presentation. See above. Patient at high risks of DVT due to significant alcohol use and history of severe withdrawal. Urine toxicology screen negative. Hepatitis C and HIV test negative. TSH WNL. B12 normal. Not a candidate for naltrexone, hepatic impairment and use of oxycodone as an outpatient. status post gabapentin taper, CONSUELO S protocol with as needed Ativan. Continue with multivitamin, folic acid and thiamine. Monitor replete electrolytes daily. Alcohol cessation counseling done in detail, patient would like to follow-up outpatient rehab. Alcohol intoxication: Likely resolved at this time. Fall: CT head WNL, C1 fracture of subacute to chronic nature on C spine scan, T5-T9 compression fractures are likely subacute to chronic. patient had trauma workup in ED, mechanical in nautre 2/2 severe intoxication. Continue pain management, PT/OT when out of withdrawal. likely will benefit for OP dexa scan given concern for osteoporosis iso vit d def 2/2 alc & tobacco abuse/poor nutrition. Laceration of scalp: Stapled in ED, monitor for any signs and symptoms of infection. Vitamin D deficiency: In the setting of chronic alcohol use and tobacco use. Admitting vitamin D level of 22.2, increase vitamin D dose to 5000 to 6000 units daily, continue for 6 to 8 weeks, repeat vitamin D level in 2 months, after 8 weeks continue with [employer] home dose of vitamin D level. DVT prophylaxis: Heparin subcu Full code Admission and Anticipated Discharge Date Admission Date: August 07, 2024 Subjective 59-year-old female with past medical history including significant alcohol use, known severe hepatic steatosis who presents with a sick very high alcohol level after fall. In the ED, noted to have a high alcohol level above 500 in the blood. Trauma evaluation performed showing laceration of the scalp but no new fractures. Admitted to medicine for further workup. Patient was seen and examined at bedside. Patient was lying in bed, on room air, NAD, improving tremors of her both hands. She was clear improving. Patient reports eating okay, moving bowels okay, denies pain or burning while passing urine. Pt appears some More alert today, undergoing resolution of withdrawal. Physical Exam Physical Exam: Gen: A&O 3 NAD HEENT: noted trauma to back of head Neck: Supple, full range of motion, no observable masses, No meningeal sign. Lungs: No Respiratory distress. CV: RRR, no edema. Abdomen: Soft, nondistended, No rebound tenderness. MSK: bilateral hand tremors Skin: disheveled Neuro: Normal Gait, Grossly intact. Psych: Appropriate for situation. Results & Data Results & Data Vital Signs (Past 12 Hours) Vital Signs Temp Pulse Pulse Resp BP Pulse Ox O2 Del Method 08/11/24 15:56 103 H 08/11/24 15:46 36.6 C 114 H 20 97/59 L 96 Room Air 08/11/24 11:13 100 H 08/11/24 11:00 36.7 C 110 H 18 118/88 98 Room Air 08/11/24 08:50 117 H 16 08/11/24 07:40 36.6 C 120 H 22 118/83 96 Room Air
[2024-08-12 06:40] LABS: BUN Creatinine Ratio 11.8 (10-20); Calcium 8.6 mg/dl (8.6-10.3); Creatinine Clr Calc Pharmacy 156.2 ml/min; Magnesium 1.7 mg/dl (1.7-2.4); Potassium 3.9 mmol/L (3.5-5.1)
[2024-08-12 07:39] VITALS: RESP 19
--- NOTE | 2024-08-12 11:31 | Electrocardiogram Report ---
Test Reason : Blood Pressure : */* mmHG Vent. Rate : 101 BPM Atrial Rate : 101 BPM P-R Int : 152 ms QRS Dur : 64 ms QT Int : 358 ms P-R-T Axes : 64 41 61 degrees QTcB Int : 464 ms Sinus tachycardia Low voltage QRS Borderline ECG When compared with ECG of 11-May-2024 10:50, No significant change was found Confirmed by Patricia Merritt (Demetria) on 08/12/2024 11:30:53 AM Referred By: REFERRED SELF Confirmed By: Patricia Merritt
[2024-08-12 11:34] VITALS: BP 131/88; PULSE 100; TEMP 98.6; O2SAT 98
--- NOTE | 2024-08-12 12:13 | Discharge Summary ---
Date of Service August 12, 2024 Admission HPI Per Admitting Provider Patient is 59 year old female with PMH ETOH abuse, essential tremor, tobacco use disorder, severe hepatic steatosis presented to ER with c/o fall today. History obtained from patient and patient's neighbor. Patient's neighbor reports he received a call from patient today at 10:55 AM stating that she fell and could not get up. Neighbor presented to patient's apartment and found patient and phone on floor in the living room. Neighbor reports found blood in patient's kitchen and bedroom. He had noticed blood to back of patient's head. Patient appeared to be intoxicated and he found a 1.5L bottle of liquor in her kitchen that was almost empty. Neighbor reports talks to patient several times a week, and is aware that she drinks alcohol but states often when he talks to her she does not seem overly intoxicated and is able to carry on a conversation. He does state patient with known history of intoxication and falls in past. In ER patient presented and appeared intoxicated and limited history obtained. Upon my evaluation patient awake and states last thing she remembers is being on floor and calling her neighbor. She complains of back of head hurting. Denies neck pain, back pain, CP, SOB, upper extremity pain, lower extremity pain. Patient states last drink ETOH this morning. She is unwilling to state how much she drinks. She states walks with use of walker. Denies known fever/chills, N/V/D/C, [place], dizziness, cough, abdominal pain, paresthesias, extremity weakness, extremity edema, rashes, urinary symptoms. History tetanus booster in 02/2024. Patient previously presented to the [facility] ED on 02/18/24 for evaluation after sustaining a fall down steps. Patient was noted to have the following trauma- related injuries at that time: distal L clavicular fx, T4/T9 compression fx, S3 nondisplaced fx, C1 fx, occipital condyle fx, multiple L-sided rib fx's, nasal fx, right lamina papyracea fx and right inferior orbital wall fx, R mandibular dislocation. She was admitted at [facility] from 02/17 to 02/21. She did not undergo any surgical interventions. Per chart review: 02/18/2024: CTA Neck: IMPRESSION 1. No vascular injury is seen in the neck. 2. Multiple acute facial fractures are present. 02/19/2024 MRI C-Spine W/O contrast: IMPRESSION 1. Redemonstrated fractures of bilateral anterior arch and anterior lateral mass of C1. 2. Known Johan Matteo type 3 left occipital condyle fracture with avulsion of the left alar ligament. 3. Anterior annulus/anterior longitudinal ligament injury at C6-7 and/or anterior corner fracture. 4. No high-grade canal stenosis, cord compression, or evidence of cord contusion. Admission Exam Per Admitting Provider General: no distress, WDWN Head: normocephalic, +laceration posterior scalp Eyes: PERRL, EOM's intact, conjunctiva non-injected, anicteric ENT: normal inspection external ears, nose, mucous membranes mildly dry, +ETOH odor on breath Neck: supple, trachea midline, non-tender to palpation Lungs: clear, no respiratory distress, no wheezing/rhonchi/rales CV: regular rhythm, rate 102, no pretibial edema Abd: normal BS, soft, non-tender Ext: no cyanosis, no calf tenderness, active ROM intact to bilateral upper and lower extremities, gis specialist strength strong and equal bilaterally Neuro: Alert, oriented to person, place, slow speech, follows commands, no other focal deficits noted, normal affect Skin: warm, dry, +ecchymosis to upper and lower extremities, upper back, and buttocks. +erythema noted to perineum and buttocks Principal Diagnosis Severe Alcohol Withdrawal, resolved. Alcohol Use Disorder Transminitis Discharge Exam Gen: A&O 3 NAD HEENT: noted trauma to back of head Neck: Supple, full range of motion, no observable masses, No meningeal sign. Lungs: No Respiratory distress. CV: RRR, no edema. Abdomen: Soft, nondistended, No rebound tenderness. MSK: bilateral hand tremors back to baseline per pt Skin: disheveled Neuro: Normal Gait, Grossly intact. Psych: Appropriate for situation. Discharge Data Allergies Allergy/AdvReac Type Severity Reaction Status Date / Time Penicillins Allergy Intermediate Rash Verified 05/15/24 12:11 lactose Allergy Mild GI SYMPTOMS Verified 05/15/24 12:11 pollen extracts Allergy Mild Sneezing Verified 05/15/24 12:11 Consultations 08/07/24 14:56 ED Decision to Admit Stat Ordered Studies 08/07/24 13:03 CT abd pelvis IV con only Stat CT cervical spine wo con Stat CT chest diagnostic w con Stat CT head/brain wo con Stat Hospital Course (1) Alcohol withdrawal syndrome without complication: Plan 59-year-old lady with PMH of EtOH abuse, essential tremor, tobacco use disorder, severe hepatic steatosis presented to the ED with fall. According to patient's neighbor, there was 1.5 L bottle of liquor almost empty noted in the kitchen. Patient noted to have high alcohol level at presentation at 513. Patient reports she drinks " a lot" and last drink was prior to arrival on 08/07/2024. She was managed for the following: Alcohol abuse Alcohol withdrawal syndrome Transaminitis: Hepatic steatosis ISO chronic alcohol use. Follow-up with GI as an outpatient for cirrhosis workup. Patient drinks a lot, noted to have high alcohol level at presentation. See above. Patient at high risks of DVT due to significant alcohol use and history of severe withdrawal. Urine toxicology screen negative. Hepatitis C and HIV test negative. TSH WNL. B12 normal. Not a candidate for naltrexone, hepatic impairment and use of oxycodone as an outpatient. status post gabapentin taper, CONSUELO S protocol with as needed Ativan. last ativa use > 24 hours away. Continue with multivitamin, folic acid and thiamine. Alcohol cessation counseling done in detail, patient would like to follow-up outpatient rehab. Alcohol intoxication: Likely resolved at this time. Fall: CT head WNL, C1 fracture of subacute to chronic nature on C spine scan, T5-T9 compression fractures are likely subacute to chronic. patient had trauma workup in ED, mechanical in nautre 2/2 severe intoxication. Continue pain management, PT/OT when out of withdrawal. likely will benefit for OP dexa scan given concern for osteoporosis iso vit d def 2/2 alc & tobacco abuse/poor nutrition. Laceration of scalp: Stapled in ED, monitor for any signs and symptoms of infection. Vitamin D deficiency: In the setting of chronic alcohol use and tobacco use. Admitting vitamin D level of 22.2, increase vitamin D dose to 5000 to 6000 units daily, continue for 6 to 8 weeks, repeat vitamin D level in 2 months, after 8 weeks continue with [employer] home dose of vitamin D level. DVT prophylaxis: Heparin subcu Full code Patient is being discharged home with following instructions at the point of discharge: Follow-up with your primary care physician within a week time and likely you will need labs CBC/CMP/magnesium/phosphorus. Continue to work on sobriety. Muriel follow up with resources to help with alcohol cessation as outpatient. Establish with rehab as outpatient. Follow-up with the PCP office within 1 week time to have your posterior scalp laceration evaluated and the johnathon taken out. Because of vitamin D deficiency, you will be discharged on daily vitamin D in addition to your prior to arrival Caltrate dose. Take your new vitamin D supplementation for 6 to 8 weeks, you will need repeat vitamin D level in about 2 months time to document progress/ongoing evaluation. Coordinate with your PCP office to set up the test. You might benefit from outpatient DEXA scan given multiple vertebral compression fracture iso vitamin D deficiency/alcohol/tobacco abuse history. coordinate with your PCP office to set up the test. Take your medications as prescribed. Please make sure that you are able to get your medications today by calling your pharmacy before you leave the hospital so that your treatment continuity is not broken. Home Health Attestation I certify that this patient is under my care and that I, or a physicians assistant store manager operations working with me, had a face to-face encounter that meets the home health [id number] encounter requirements with this patient. The encounter with the patient was in whole, or in part, for the following medical condition, which is the primary reason for home health care (list medical condition): I certify that, based on my findings, the following services are medically necessary home health services: My clinical findings support the need for the above services because: Further, I certify that my clinical findings support that this patient is homebound (i.e. absences from home require considerable and taxing effort and are for medical reasons or temple services or infrequently or of short duration when for other reasons) because: Certification for Home Health Services: Based on the above findings, I certify that this patient is confined to the home and needs intermittent half-way care, physical therapy and/or speech therapy or continues to need occupational therapy. The patient is under my care, and I have initiated the establishment of the plan of care. This patient will be followed by a physician who will periodically review the plan of care. Total Time Total Time Spent Total Time Spent (In Minutes): 35 Discharge Plan Discharge Items Patient Disposition: Drug & Alcohol Rehab Reason For Visit: ETOH INTOX,FALL Discharge Diagnosis: Severe Alcohol Withdrawal, resolved. Alcohol Use Disorder Transminitis Activity: Resume your previous activity Lifting: Gradually increase as tolerated Non-emergency contact: Primary Care Provider Call non-emergency contact if: you have any medication questions Follow-up/Referrals: Tawanna Hendricks MD [Primary Care Provider] - (Date & Time 08/21/2024 2:00 PM Provider: Tawanna Hendricks MD [facility] ) Diet: Regular Addtl Attending Provider Instructions: Follow-up with your primary care physician within a week time and likely you will need labs CBC/CMP/magnesium/phosphorus. Continue to work on sobriety. Pleas follow up with resources to help with alcohol cessation as outpatient. Establish with rehab as outpatient. Follow-up with the PCP office within 1 week time to have your posterior scalp laceration evaluated and the johnathon taken out. Because of vitamin D deficiency, you will be discharged on daily vitamin D in addition to your prior to arrival Caltrate dose. Take your new vitamin D supplementation for 6 to 8 weeks, you will need repeat vitamin D level in about 2 months time to document progress/ongoing evaluation. Coordinate with your PCP office to set up the test. You might benefit from outpatient DEXA scan given multiple vertebral compression fracture iso vitamin D deficiency/alcohol/tobacco abuse history. coordinate with your PCP office to set up the test. Take your medications as prescribed. Please make sure that you are able to get your medications today by calling your pharmacy before you leave the hospital so that your treatment continuity is not broken. Pending Studies at Discharge: No Stand-Alone Forms: My [facility] Skilled Items Patient informed of condition?: Yes DNR: No Discharge Level of Care: Other Communicable Disease: No Discharge Prognosis: Improving Lines: None Urinary Catheter: No Medications and DC Order Prescriptions: New Caldyphen 1-8 % Lotion 1 applic EXT BID 5 Days Qty: 177 0RF cholecalciferol (vitamin D3) 125 mcg (5,000 unit) Tablet 125 mcg PO QAM 42 Days Qty: 42 0RF multivitamin with folic acid [Daily-Rosana (with folic acid)] 400 mcg Tablet 1 tab PO QAM Qty: 30 0RF Continued Calcium (Caltrate) 600 MG tablet 600 mg PO UD Qty: 0 Rx Instructions: 600 mg po daily. otc unable to verify acetaminophen 500 mg Tablet 1,000 mg PO Q12H PRN (Reason: Pain) Rx Instructions: otc unable to verify folic acid 1 mg tablet 1 mg PO UD Rx Instructions: 1 mg po daily. last filled 04/13/24 60 day supply thiamine HCl (vitamin B1) 100 mg tablet 100 mg PO UD Rx Instructions: 100 mg po daily otc unable to verify oxycodone 5 mg tablet 5 mg PO UD PRN (Reason: severe pain (scale score 7-10)) Rx Instructions: 5 mg po q6h prn. last filled 02/22/24 5 day supply Discontinued ibuprofen 200 mg Tablet 200 mg PO Q6H PRN (Reason: Pain) Rx Instructions: otc unable to verify Discharge Orders: Discharge Order (Routine); Ordered 08/12/24 Ordered By: Klaudia Beard Admission Data Admit Date/Time: 08/07/24 16:09 Attending Provider: Klaudia Beard Admit Provider: Nando Ceballos Primary Care Provider: Tawanna Hendricks Other Providers: Nando Ceballos
[2024-08-12] MEDS: diphenhydrAMINE Capsule 25 MG CAP PO ONE (12:36)
== END 2024-08-12 14:36 | disposition home or self-care (01) | DRG 897 ==
LOC: EDBD → ED 12:42 → EDUNIT# 12:42 → SUATTDRO 16:09 → 2E 16:09